=== PATIENT | female | born 1930 | race Caucasian/White ===

== ENCOUNTER 2017-05-30 12:25 | Inpatient (IN) | payer MEDICARE, MEDICAID ==
[2017-05-30] MEDS ORDERED: Loratadine 10 MG TAB PO PRN (14:35)
[2017-05-30] MEDS ORDERED: Loperamide HCl 2 MG CAP PO PRN (14:35)
[2017-05-30] MEDS ORDERED: Milk Of Magnesia 30 ML UDCUP PO PRN (14:35)
[2017-05-30] MEDS ORDERED: Artificial Tear Sol 15 ML BOT EA EYE PRN (14:35)
[2017-05-30] MEDS ORDERED: Nitroglycerin 0.4 MG TAB (25 Tab Bottle) SL PRN (14:35)
[2017-05-30] MEDS ORDERED: Mag-Al 1200 mg/1200 mg/30 ML UDCUP PO PRN (14:35)
[2017-05-30] MEDS ORDERED: Senokot 8.6 MG TAB PO PRN (14:35)
[2017-05-30] MEDS ORDERED: Ondansetron ODT 4 MG TAB PO PRN (14:35)
[2017-05-30] MEDS ORDERED: Eucerin (Mineral Oil/Petrolatum,White) 30 gm Jar TOP PRN (14:35)
[2017-05-30] MEDS ORDERED: Chloraseptic Spray 180 ml Bottle PO PRN (14:35)
[2017-05-30] MEDS ORDERED: hydrALAZINE 20 MG/ML VIAL SLOW IVP PRN (14:35)
[2017-05-30] MEDS ORDERED: Sodium Chloride 0.65% Nasal 44 ML BOT EA NARE PRN (14:35)
[2017-05-30] MEDS ORDERED: Ondansetron HCl/PF 4 MG/2 ML Vial IVP PRN (14:35)
[2017-05-30 14:41] LABS: Lactic Acid 3.5 mmol/L (0.5-2.2)
--- NOTE | 2017-05-30 16:46 | HP ---
PRIMARY CARE PHYSICIAN: Neptali Raymond M.D. REASON FOR ADMISSION: Acute hypoxic respiratory failure, pneumonia, sepsis with acute organ dysfunction, non-ST elevation MS, type 2, acute kidney failure. HISTORY OF PRESENT ILLNESS: An 86-year-old female who has history of hypertension who presented to emergency room initially at [facility] with increasing shortness of breath. Around Good Sunday weekend, patient was experiencing pain in her right eye and she was having blurred vision and that is why family member made appointment next Sunday with duty officer and the patient was instructed to go to [place]. Since then over that week period every 2 days, the patient was visiting to [place]. A week later on Sunday, the patient started having upper respiratory infection. She was having runny nose and sore throat, other family member was also sick during that week. Patient's condition gotten worse last week end. She was having cough productive of sputum. She was having hoarseness of voice. Her condition deteriorated over Sunday and Sunday. Sunday they had appointment for eye doctor at [place]. After that visit, when they returned, patient's condition even more deteriorated. She was extremely short of breath. This morning, she was having cough productive of sputum. She denies any hemoptysis. She was not having any fever during this entire period. She did not have any orthopnea or lower extremity edema. She was not able to sleep because of cough and shortness of breath. This morning, the patient was taken to [facility] where she was found with acute kidney failure and elevated troponin. She was hypoxic on admission with saturation of 88% on room air. She was hypotensive as well, tachycardic and tachypneic. Routine blood tests showed leukocytosis and lactic acidosis. Her BNP was elevated. Before, this patient did not have any dyspnea on exertion , orthopnea, or PND. The patient was given Lovenox 1 mg per kg, Lasix 40 mg, DuoNeb therapy, aspirin, Rocephin, azithromycin, and subsequently patient was transferred to our hospital for higher level of care. When I saw this patient in the emergency room, patient was lying flat without any shortness of breath, but she was wheezing in both lung modi and she was having active cough with productive of sputum. She was also hypotensive. Initially, plan was to admit to telemetry floor, but we changed to IMCU floor. The patient is up to date in her flu and pneumonia vaccination. She denies any palpitation, but she was experiencing chest discomfort this morning. Her chest discomfort was radiating to neck. She denies any constipation, diarrhea. She denies any UTI symptoms. She denies any headache or focal motor or sensory symptoms. PAST MEDICAL HISTORY: Carpal tunnel syndrome, non-rheumatic mitral valve prolapse and mitral valve regurgitation, degenerative joint disease, hypertension, dyslipidemia, gastroesophageal reflux disease, vitamin B12 deficiency, hypothyroidism, and irritable bowel syndrome. PAST PSYCHIATRIC HISTORY: Anxiety and depression. PAST SURGICAL HISTORY: Appendicectomy, total abdominal hysterectomy, left femur fracture required surgery x2. FAMILY HISTORY: No strong family history of premature coronary artery disease, stroke or cancer. SOCIAL HISTORY: Patient lives at home with her family. No history of tobacco, alcohol or illicit drug abuse. ALLERGIES: PENICILLIN AND CODEINE SULFATE. CURRENT HOME MEDICATIONS: Based on primary care physician's office, the patient is on following medications: Celexa 20 mg p.o. daily, aspirin 81 mg p.o. daily, Lipitor 20 mg p.o. at bedtime, Synthroid 50 mcg p.o. daily, Bentyl 10 mg p.o. twice daily, VESIcare 10 mg p.o. daily, ranitidine 150 mg p.o. b.i.d. , diclofenac 75 mg p.o. daily as needed, diazepam 5 mg p.o. daily as needed, Sinemet 10/100 one tablet three times daily, amlodipine 5 mg daily. EMERGENCY ROOM COURSE: At [facility], the patient has received Rocephin, azithromycin, and Lovenox 1 mg per kg, Lasix 40 mg and DuoNeb therapy and aspirin 324 mg. REVIEW OF SYSTEMS: The following complete review of systems was negative, unless otherwise mentioned in the HPI or below: Constitutional: Weight loss or gain, ability to conduct usual activities. Skin: Rash, itching. Eyes: Double vision, pain. ENT/Mouth: Nose bleeding, neck stiffness, pain, tenderness. Cardiovascular: Palpitations, dyspnea on exertion, orthopnea. Respiratory: Shortness of breath, wheezing, cough, hemoptysis, fever or night sweats. Gastrointestinal: Poor appetite, abdominal pain, heartburn, nausea, vomiting, constipation, or diarrhea. Genitourinary: Urgency, frequency, dysuria, nocturia. Musculoskeletal: Pain, swelling. Neurologic/Psychiatric: Anxiety, depression. Allergy/Immunologic: Skin rash, bleeding tendency. Please see my HPI for pertinent positive and negative. All other review of systems reviewed and negative except as mentioned in the HPI. PHYSICAL EXAMINATION: VITAL SIGNS: Currently in our emergency room, blood pressure 114/80, pulse 104. Lowest blood pressure 89/70, respiratory rate 26, temperature 97.5, saturation 97% on 3 liter oxygen. She was hypoxic with saturation 88% on room air. GENERAL: Patient is currently alert, awake, mild respiratory distress, weak. HEAD: Normocephalic, atraumatic. Eyes: Pupils round, reactive to light. Right eye has mild erythema. ENT: Oropharynx within normal limits. Moist mucous membranes. Mild pharyngeal erythema noted. NECK: Supple, mild lymph node palpable on the right side of the neck. LUNGS: Bilateral rales and wheezing heard. Air entry reduced at base. CARDIAC: S1, S2 regular, tachycardia, soft systolic murmur present parasternally. No gallop, no rub. ABDOMEN: Soft, bowel sounds present, nontender, nondistended. No organomegaly , no mass, no suprapubic tenderness. BACK: Unremarkable, no CVA tenderness. EXTREMITIES: Upper extremity passive movement of all joints are normal. Lower extremity, nonpitting edema noted. Good distal pulsation. SKIN: No skin rash. HEMATOLOGICAL SYSTEM: No lymphadenopathy. PSYCHIATRIC: Normal affect. NEUROLOGIC: The patient is alert, oriented x3. Cranial nerves II-XII intact. Motor and sensation within normal limit. No focal neurological deficit noted. SIGNIFICANT LABORATORY DATA: EKG showing normal sinus rhythm, nonspecific ST-T changes. Chest x-ray based on my review bibasilar pleural effusion, bibasilar atelectasis versus infiltration, cardiomegaly. CBC: WBC 20.4, hemoglobin 11.5 , platelets 368 with bandemia. BMP: Sodium 136, potassium 4.2, chloride 102, carbon dioxide 17, anion gap 21, BUN 43, creatinine 2.35, glucose 154, lactic acid 3.5, calcium 8.5. LFT: AST 78, ALT 61, troponin I 0.416, CK-MB 2.4, CK 18. ASSESSMENT AND PLAN: 1. Acute hypoxic respiratory failure, likely related with underlying pneumonia and congestive heart failure, currently saturation maintained with nasal cannula. The patient will be admitted to IMCU. Pulmonary and Cardiology will be consulted. We will maintain oxygen saturation above 92%. 2. Community-acquired pneumonia, bibasilar pneumonia. Patient has leukocytosis with left shift and lactic acidosis. Patient also exposed with a viral infection recently. We will check respiratory virus panel. We will check urine streptococcal and legionella antigen test. Pulmonary will be consulted. We will treat with cefepime 1 gram q.12 hourly and Levaquin 750 mg every 2 days, Mucinex 600 mg twice daily, DuoNeb therapy q.6 hourly. Given her wheezing, we will also treat with Solu-Medrol 40 mg IV q.6 hourly for 4 doses today. 3. Acute kidney failure likely related with sepsis. Cardiorenal syndrome is also a possibility. We will check urine sodium, urine creatinine. Nephrology will be consulted. At this point, because of hypotension and acute kidney failure, we will avoid diuretic therapy. Because of associated elevated BNP, we will also avoid giving her too much fluid, but will defer that management to Nephrology and Cardiology. 4. Non-ST elevation myocardial infarction, type 2, likely demand ischemia from sepsis. I am suspecting this patient has underlying sepsis, but she was also experiencing chest pain this morning. We will do serial cardiac enzymes x3 and we will consult Cardiology. We will obtain echocardiography. We will continue aspirin 325 mg p.o. daily. The patient is already given Lovenox 1 mg per kg at other emergency room. Further decision will defer to Cardiology. 5. Lactic acidosis with elevated anion gap metabolic acidosis due to renal failure and sepsis. We will treat underlying infection. Nephrology consulted. 6. Abnormal liver function tests, likely related with sepsis or hypotension related to poor perfusion. We will monitor LFT. 7. Congestive heart failure, suspecting diastolic. It is unclear whether the patient has acute congestive heart failure or not. We will consult Cardiology, Pulmonology, and will defer management to them. It is complicated situation. I am suspecting that most likely the patient had upper respiratory infection that complicated pneumonia and that pneumonia precipitating congestive heart failure as well as acute kidney failure and sepsis with acute organ dysfunction. We have to be very careful giving her fluid versus Lasix and we have to monitor labs very closely and that is why we are getting assistance from consultants. 8. Sepsis with acute organ dysfunction. The patient has severe sepsis with hypotension. Patient meets sepsis criteria, though tachycardic, tachypneic, and hypoxic respiratory failure, kidney failure, leukocytosis with bandemia and lactic acidosis. Source of infection is mostly lung, but we will also rule out urinary tract infection. We will check urinalysis. 9. Anxiety and depression. We will continue Celexa 20 mg p.o. daily. 10. Gastroesophageal reflux disease. We will continue Pepcid 20 mg p.o. daily. 11. Hypothyroidism. We will continue Synthroid 50 mcg p.o. daily. 12. Dyslipidemia. Check lipid profile tomorrow and continue Lipitor at 20 mg p.o. at bedtime. 13. Osteoarthritis. We will avoid NSAID because of kidney failure. 14. Parkinsonian syndrome. The patient is taking carbidopa/levodopa medication which we will continue while in hospital. 15. Hypertension, but currently low blood pressure and that is why we will hold on antihypertensive medication. 16. Deep venous thrombosis prophylaxis, heparin 5000 units subcu 3 times daily. 17. Gastrointestinal prophylaxis, Pepcid 20 mg p.o. daily. CODE STATUS: Spoke with the patient and patient's daughter at bedside and confirmed full code status. Patient's daughter is surrogate decision maker. Disposition plan based on clinical course. We are expecting patient's stay in hospital more than 2 midnights. Plan of care discussed with the patient and family member at bedside in the emergency room. GAUTAMD
[2017-05-30 17:19] LABS: Troponin I 0.384 ng/mL (< 0.028)
[2017-05-30] MEDS: Carbidopa/Levodopa 10-100 mg Tablet PO SCH ×2 (17:29→20:52)
[2017-05-30] MEDS: Heparin 5,000 UNITS/ML VIAL SC SCH ×2 (17:29→20:52)
[2017-05-30] MEDS: Cefepime 1 GM, Admixture Fee 1 EACH in Sodium Chloride 0.9% 10 ML SLOW IVP SCH (17:30)
[2017-05-30 19:04] LABS: Anion Gap 17 mmol/L (10-20); BUN (Urea Nitrogen) 43 mg/dL (9.8-20.1); Calc. Creatinine Clearance 27 mL/min (70-130); Calcium 8.6 mg/dL (7.8-10.44); Carbon Dioxide 21 mmol/L (23-31); Chloride 103 mmol/L (98-107); Estimated GFR-MDRD 23; Glucose 186 mg/dL (83-110); Potassium 4.2 mmol/L (3.5-5.1); Sodium 137 mmol/L (136-145)
[2017-05-30 20:00] LABS: Troponin I 0.465 ng/mL (< 0.028)
[2017-05-30 20:05] LABS: Bilirubin Negative (Negative); Blood, Urine Negative (Negative); Clarity CLOUDY (Clear); Glucose, Urine (Dipstick) Negative (Negative); Leukocyte Negative (Negative); Nitrite Negative (Negative); Protein, Urine (Dipstick) Negative (Neg-Trace); Specific Gravity, Urine 1.014 (1.002-1.036); Urobilinogen 0.2 mg/dL (0.2-1.0)
[2017-05-30 20:07] LABS: Bacteria/HPF None Seen HPF (None Seen); Hyaline Casts/LPF 4-6 HYALINE CAST LPF (0-3 Hyaline); Squamous Epithelial 0-3 HPF (0-3); WBC/HPF 0-3 HPF (0-3)
[2017-05-30 20:10] LABS: Yeast-AUWi Flag 44.6 (0-25.0)
[2017-05-30 20:19] LABS: RBC/HPF None Seen HPF (0-3); Yeast-All Forms None Seen HPF (None Seen)
[2017-05-30] MEDS: Dicyclomine 10 MG CAP PO SCH (20:52)
[2017-05-30] MEDS: guaiFENesin ER 600 MG TAB PO SCH (20:52)
[2017-05-30] MEDS ORDERED: Cefepime 1 GM in Sodium Chloride 0.9% 100 ML IVPB SCH (21:00)
[2017-05-30] MEDS: Atorvastatin Calcium 20 MG TAB PO SCH (21:07)
[2017-05-30 22:34] LABS: Creatinine, Urine 42.68 mg/dL (47-110)
--- NOTE | 2017-05-30 23:49 | ULT ---
BILATERAL RENAL ULTRASOUND: 05/30/17 INDICATION: Acute renal insufficiency. FINDINGS: Symmetric size of each kidney approximating 9 cm in length. Moderate sized right renal cyst is eviden t. No overt hydronephrosis. Urinary bladder is grossly unremarkable. IMPRESSION: No evidence of hydronephrosis involving either kidney. Right renal cyst. POS: [facility]
--- NOTE | 2017-05-31 00:11 | CON ---
DATE OF CONSULTATION: 05/30/2017 REASON FOR CONSULTATION: Acute renal failure as well as metabolic acidosis. HISTORY OF PRESENT ILLNESS: A very pleasant 86-year-old female with a baseline creatinine unknown, p resented to the hospital with a creatinine of 2.3. The patient also had an acute hypoxic respiratory failure and Non-ST ND. The patient complains of chronic leg swelling. Denies any headache, numbnes s, tingling or weakness. Denies any nausea, vomiting or chest pain. The patient as mentioned had an elevated BNP. PAST MEDICAL HISTORY: Significant for carpal tunnel syndrome, mitral valve prolapse, mitral valve re gurgitation, degenerative joint disease, hypertension, hyperlipidemia, GERD, B12 deficiency, and hypo thyroidism. PAST SURGICAL HISTORY: Significant for appendectomy, hysterectomy, left femur fracture. SOCIAL HISTORY: No alcohol or drug use. FAMILY HISTORY: Negative for ESRD. ALLERGIES: Reviewed. HOME MEDICATIONS: List reviewed. REVIEW OF SYSTEMS: Fifteen-point review of systems was performed and negative except positives noted above. General: Weakness. Head: Headache. Neck: No swelling or lumps. Nose: No epistaxis or discharge. Eyes: No diplopia or pain. Respiratory: Dyspnea. Cardiovascular: Chest pain. Gastro intestinal: Nausea. /LEGAL TRANSCRIPTIONIST: Hematuria. Musculoskeletal: No joint pain. Neuropsychiatric systems : No suicidal ideation. No ideation. Skin: Denies any rash or ulcer. Constitutional: No fever or chills. PHYSICAL EXAMINATION: GENERAL: The patient is awake, alert. VITAL SIGNS: Afebrile, pulse 104, breathing at 16, blood pressure 114/80. OBJECTIVE: See above. Awake, alert, in no acute distress. GENERAL APPEARANCE AND MENTAL STATUS: Fair. HEAD/NECK: Normocephalic. Atraumatic. EYES: EOMI. No deformity. EARS: Clear. No ulcers. NOSE: Intact. No lesions. MOUTH: Clear. No discharge. THROAT: Clear. No exudate. LUNGS: Clear. No crackles. CARDIAC: S1, S2. No rub. ABDOMEN: Benign. BS+. GENITALIA/RECTUM: Paul absent. BACK/EXTREMITIES: Edema 0+ Ulcer-. NEUROLOGICAL: Alert and motor intact. SKIN: Rash- Bruise-. LYMPHATICS: Edema- Ulcer-. LABORATORY DATA: Show creatinine is 2.3, bicarbonate 28. ASSESSMENT AND RECOMMENDATIONS: 1. Acute kidney injury with chronic kidney disease, most likely due to decreased effective arterial blood volume. Continue gentle hydration. 2. Anemia, stable. 3. Hypertension, stable. 4. Medications based on GFR are appropriate. 5. Congestive heart failure. I will repeat labs today. No indication for dialysis at this time. I would recommend avoiding diclo fenac at home.
[2017-05-31] MEDS: Cefepime 1 GM, Admixture Fee 1 EACH in Sodium Chloride 0.9% 10 ML SLOW IVP SCH ×2 (05:23→16:46)
[2017-05-31] MEDS: Levothyroxine Sodium 50 MCG TAB PO SCH (05:24)
[2017-05-31] MEDS ORDERED: Furosemide 40 MG/4 ML VIAL SLOW IVP SCH (06:00)
[2017-05-31 07:57] LABS: Lactic Acid 1.1 mmol/L (0.5-2.2)
[2017-05-31 08:12] LABS: ALT (SGPT) 16 U/L (8-55); AST (SGOT) 51 U/L (5-34); Albumin 2.7 g/dL (3.4-4.8); Alkaline Phosphatase 107 U/L (40-150); Anion Gap 17 mmol/L (10-20); BUN (Urea Nitrogen) 43 mg/dL (9.8-20.1); Bilirubin, Total 0.3 mg/dL (0.2-1.2); Calc. Creatinine Clearance 35 mL/min (70-130); Calcium 8.7 mg/dL (7.8-10.44); Carbon Dioxide 19 mmol/L (23-31); Cardiac Risk 3.2 (Less than 4.5); Chloride 104 mmol/L (98-107); Cholesterol 81 mg/dl (< 200 Desired); Estimated GFR-MDRD 30; Globulin 3.3 g/dL (2.4-3.5); Glucose 124 mg/dL (83-110); HDL Cholesterol 25 mg/dL (>60 Neg Risk); LDL Cholesterol, Calculated 40 mg/dL; Magnesium 1.3 mg/dL (1.6-2.6); Potassium 3.8 mmol/L (3.5-5.1); Sodium 136 mmol/L (136-145); Triglycerides 78 mg/dL (Less than 150); Uric Acid 10.2 mg/dL (2.6-6.0)
[2017-05-31 08:14] LABS: Band 5 % (5-11); Hemoglobin 10.4 g/dL (12.0-16.0); Lymphocytes 2 % (21-51); MDiff Complete? YES; Mean Corpuscular HGB CONC 31.1 g/dL (32.0-36.0); Mean Corpuscular Hemoglobin 29.6 pg (27.0-31.0); Mean Corpuscular Volume 95.3 fl (81.0-99.0); Mean Platelet Volume 7.8 fL (7.4-10.4); Monocytes 1 % (0-10); Neutrophil 92 % (42-75); Platelet Count 408 thou/uL (130-400); RBC Distribution Width 12.7 % (11.5-14.5); Red Blood Cell (RBC) Count 3.52 mill/uL (4.20-5.40); White Blood Cell (WBC) Count 21.3 thou/uL (4.8-10.8)
[2017-05-31] MEDS: Aspirin 325 MG TAB PO SCH (08:56)
[2017-05-31] MEDS: Carbidopa/Levodopa 10-100 mg Tablet PO SCH ×3 (08:56→20:55)
[2017-05-31] MEDS: Dicyclomine 10 MG CAP PO SCH ×2 (08:56→20:55)
[2017-05-31] MEDS: Citalopram 20 MG TAB PO SCH (08:56)
[2017-05-31] MEDS: Heparin 5,000 UNITS/ML VIAL SC SCH ×3 (08:56→20:40)
[2017-05-31] MEDS: guaiFENesin ER 600 MG TAB PO SCH ×2 (08:56→20:40)
[2017-05-31] MEDS: Famotidine 20 MG TAB PO SCH (08:56)
--- NOTE | 2017-05-31 09:36 | PDOC.PN ---
- Subjective Encounter Start Date: 05/31/17 Encounter Start Time: 08:30 -: old records requested/rev pt has cough, dyspnea, still has low BP, creatinine is improving, no fever, pt felt that she had visual hallucination - Objective MAR Reviewed: Yes Vital Signs & Weight: Vital Signs (12 hours) Temp Pulse Resp BP BP Pulse Ox 05/31/17 08:43 99 05/31/17 08:42 95 21 H 99 05/31/17 08:00 97.5 F L 100 23 H 94 L 05/31/17 07:54 97.5 F L 100 23 H 88/66 L 94 L 05/31/17 04:00 98.1 F 94 19 91/55 L 100 05/31/17 00:00 97.6 F 101 H 20 103/48 L 97 05/30/17 22:24 100 20 97 Weight Weight 191 lb 1.6 oz I&O: 05/30/17 05/31/17 06/01/17 06:59 06:59 06:59 Intake Total 120 Output Total 360 Balance -240 Result Diagrams: 05/31/17 03:30 05/31/17 03:30 EKG Reviewed by me: Yes Phys Exam - Physical Examination Constitutional: NAD HEENT: PERRLA, moist MMs, sclera anicteric Neck: no JVD, supple Respiratory: wheezing present few scattered rales more at base Cardiovascular: RRR, no significant murmur Gastrointestinal: soft, non-tender, no distention, positive bowel sounds Musculoskeletal: no edema, pulses present Neurological: non-focal, normal sensation, moves all 4 limbs Lymphatic: no nodes Psychiatric: normal affect, A&O x 3 Skin: no rash, normal turgor Dx/Plan (1) Acute diastolic heart failure Code(s): I50.31 - ACUTE DIASTOLIC (CONGESTIVE) HEART FAILURE Status: Acute (2) Acute kidney failure Status: Acute (3) Acute respiratory failure with hypoxia Code(s): J96.01 - ACUTE RESPIRATORY FAILURE WITH HYPOXIA Status: Acute (4) Community acquired bacterial pneumonia Code(s): J15.9 - UNSPECIFIED BACTERIAL PNEUMONIA Status: Acute (5) Demand ischemia of myocardium Code(s): I24.8 - OTHER FORMS OF ACUTE ISCHEMIC HEART DISEASE Status: Acute (6) Hypotension Status: Acute (7) Infection due to human metapneumovirus (hMPV) Code(s): B97.81 - HUMAN METAPNEUMOVIRUS THE CAUSE OF DISEASES CLASSD ELSWHR Status: Acute (8) Lactic acidosis Code(s): E87.2 - ACIDOSIS Status: Acute (9) Sepsis with acute organ dysfunction Code(s): A41.9 - SEPSIS, UNSPECIFIED ORGANISM; R65.20 - SEVERE SEPSIS WITHOUT SEPTIC SHOCK Status: Acute (10) Transaminitis Code(s): R74.0 - NONSPEC ELEV OF LEVELS OF TRANSAMNS & LACTIC ACID DEHYDRGNSE Status: Acute (11) Anemia, normocytic normochromic Code(s): D64.9 - ANEMIA, UNSPECIFIED Status: Chronic (12) Anxiety and depression Code(s): F41.9 - ANXIETY DISORDER, UNSPECIFIED; F32.9 - MAJOR DEPRESSIVE DISORDER, SINGLE EPISODE, UNSPECIFIED Status: Chronic (13) GERD (gastroesophageal reflux disease) Code(s): K21.9 - GASTRO-ESOPHAGEAL REFLUX DISEASE WITHOUT ESOPHAGITIS Status: Chronic (14) Hypertension Code(s): I10 - ESSENTIAL (PRIMARY) HYPERTENSION Status: Chronic - Plan cont current plan of care, continue antibiotics, respiratory therapy * continue empiric cefepime and levaquin * if continue to have hallucination, then will DC levaquin and change to azithromycin vs doxycycline * medication reviewed as below * symptomatic treatment * follow culture * droplet isolation * continue respiratory therapy * renal function improving * echo will be done * cardiology and pulmonary will be seeing today. Review of Systems - Review of Systems Constitutional: negative: fever, chills, sweats, weakness, malaise, other Eyes: negative: Pain, Vision Change, Conjunctivae Inflammation, Eyelid Inflammation, Redness, Other ENT: negative: Ear Pain, Ear Discharge, Nose Pain, Nose Discharge, Nose Congestion, Mouth Pain, Mouth Swelling, Throat Pain, Throat Swelling, Other Respiratory: Cough, Shortness of Breath, SOB with Excertion. negative: Dry, Hemoptysis, Pleuritic Pain, Sputum, Wheezing Cardiovascular: negative: chest pain, palpitations, orthopnea, paroxysmal nocturnal dyspnea, edema, light headedness, other Gastrointestinal: negative: Nausea, Vomiting, Abdominal Pain, Diarrhea, Constipation, Melena, Hematochezia, Other Genitourinary: negative: Dysuria, Frequency, Incontinence, Hematuria, Retention , Other Musculoskeletal: negative: Neck Pain, Shoulder Pain, Arm Pain, Back Pain, Hand Pain, Leg Pain, Foot Pain, Other Skin: negative: Rash, Lesions, Simon, Bruising, Other - Medications/Allergies Allergies/Adverse Reactions: Allergies Allergy/AdvReac Type Severity Reaction Status Date / Time codeine Allergy Verified 01/03/15 16:26 Penicillins Allergy Verified 01/03/15 16:26 Medications: Current Medications Acetaminophen (Tylenol) 650 mg PO Q4H PRN PRN Reason: Headache/Fever or Pain Al Hydroxide/Mg Hydroxide (Maalox) 30 ml PO Q6H PRN PRN Reason: Heartburn or Indigestion Albuterol/Ipratropium (Duoneb) 3 ml NEB [id number] [facility] Last Admin: 05/31/17 08:42 Dose: 3 ml Artificial Tears (Tears Renewed 15ml Bottle) 0 drop EA EYE PRN PRN PRN Reason: Dry Eyes Aspirin (Aspirin) 325 mg PO DAILY [facility] Last Admin: 05/31/17 08:56 Dose: 325 mg Atorvastatin Calcium (Lipitor) 20 mg PO HS [facility] Last Admin: 05/30/17 21:07 Dose: 20 mg Carbidopa/Levodopa (Sinemet 10/100) 1 tab PO TID [facility] Last Admin: 05/31/17 08:56 Dose: 1 tab Citalopram Hydrobromide (Celexa) 20 mg PO DAILY [facility] Last Admin: 05/31/17 08:56 Dose: 20 mg Dicyclomine HCl (Bentyl) 10 mg PO BID [facility] Last Admin: 05/31/17 08:56 Dose: 10 mg Famotidine (Pepcid) 20 mg PO DAILY [facility] Last Admin: 05/31/17 08:56 Dose: 20 mg Guaifenesin (Robitussin Sf) 200 mg PO Q4H PRN PRN Reason: Cough Guaifenesin (Mucinex) 600 mg PO Q12HR [facility] Last Admin: 05/31/17 08:56 Dose: 600 mg Heparin Sodium (Porcine) (Heparin) 5,000 units SC TID [facility] Last Admin: 05/31/17 08:56 Dose: 5,000 units Hydralazine HCl (Apresoline) 10 mg SLOW IVP Q4H PRN PRN Reason: Systolic BP > 180 Levofloxacin 750 mg/ Device 150 mls @ 100 mls/hr IVPB Q2DAYS@1500 [facility] Last Admin: 05/30/17 17:30 Dose: Not Given Cefepime HCl 1 gm/Miscellaneous Medication 1 each/ Sodium Chloride 10 mls @ 120 mls/hr SLOW IVP 0400,1600 [facility] Last Admin: 05/31/17 05:23 Dose: 10 mls Levothyroxine Sodium (Synthroid) 50 mcg PO 0600 [facility] Last Admin: 05/31/17 05:24 Dose: 50 mcg Loperamide HCl (Imodium) 2 mg PO PRN PRN PRN Reason: Diarrhea/Loose Stools Loratadine (Claritin) 10 mg PO DAILYPRN PRN PRN Reason: Sinus Symptoms Magnesium Hydroxide (Milk Of Magnesium) 30 ml PO DAILYPRN PRN PRN Reason: Constipation Methylprednisolone Sodium Succinate (Solu-Medrol) 40 mg IVP Q6HR [facility] Last Admin: 05/31/17 05:24 Dose: 40 mg Mineral Oil/White Petrolatum (Eucerin Cream) 0 gm TOP BIDPRN PRN PRN Reason: Dry Skin Nitroglycerin (Nitrostat) 0.4 mg SL Q5MIN PRN PRN Reason: Chest Pain Ondansetron HCl (Zofran Odt) 4 mg PO Q6H PRN PRN Reason: Nausea/Vomiting Ondansetron HCl (Zofran) 4 mg IVP Q6H PRN PRN Reason: Nausea/Vomiting Phenol (Chloraseptic [place] 180 Ml Bot) 0 ml PO PRN PRN PRN Reason: Sore Throat Senna (Senokot) 2 tab PO HSPRN PRN PRN Reason: Constipation Sodium Chloride ([place] Nasal [place] 0.65%) 0 ml EA NARE QIDPRN PRN PRN Reason: Nasal Congestion Zolpidem Tartrate (Ambien) 5 mg PO HSPRN PRN PRN Reason: Insomnia
--- NOTE | 2017-05-31 11:18 | PRG ---
DATE OF SERVICE: 05/31/2017 SUBJECTIVE: This is an 86-year-old female being seen for acute kidney injury. The patient denies an y nausea, vomiting or chest pain. PHYSICAL EXAMINATION: GENERAL: Patient is awake, alert. VITAL SIGNS: Afebrile, pulse 75, breathing 16, blood pressure was 82/66. OBJECTIVE: See above. Awake, alert, in no acute distress. GENERAL APPEARANCE AND MENTAL STATUS: Fair. HEAD/NECK: Normocephalic. Atraumatic. EYES: EOMI. No deformity. EARS: Clear. No ulcers. NOSE: Intact. No lesions. MOUTH: Clear. No discharge. THROAT: Clear. No exudate. LUNGS: Clear. No crackles. CARDIAC: S1, S2. No rub. ABDOMEN: Benign. BS+. GENITALIA/RECTUM: Paul absent. BACK/EXTREMITIES: Edema 0+ Ulcer- NEUROLOGICAL: Alert and motor intact. SKIN: Rash- Bruise- LYMPHATICS: Edema- Ulcer- LABORATORY: Hemoglobin is 10.4, creatinine is 1.6. ASSESSMENT AND RECOMMENDATIONS: 1. Acute kidney injury/chronic kidney disease, improved. 2. Hypertension, would recommend 250 mL bolus. 3. Anemia, stable. 4. Medications based on glomerular filtration rate are appropriate. 5. Hypotension. We would recommend checking a random cortisol level as well as renal dose. No indication for dialysis at this time.
--- NOTE | 2017-05-31 20:02 | CON ---
DATE OF CONSULTATION: 05/31/2017 SERVICE: Pulmonary Medicine. HISTORY OF PRESENT ILLNESS: The patient is an 86-year-old white female with past medical history significant for essentially nothing. She was in her usual state of health until 3 days prior to admission. She had onset of cough, congestion, sore throat and upper respiratory tract type of an infection. She has sick contacts while was in the house. Because of this, she had poor p.o. intake. Either way, on the day of presentation, she turned pale as a sheet. She looked extraordinarily sick and had onset of chest discomfort radiating up into the left shoulder. She was subsequently brought to the Emergency Department. Initial diagnostic evaluation demonstrated an acute kidney injury that was not there last month. As such, she was admitted for observation. Overnight, respiratory virus panel was performed demonstrating that the patient was suffering with human metapneumovirus. She was given some gentle IV resuscitation. She is clearing her kidney injury and she actually feels much improved today. Originally, she had very low blood pressure. This actually perked up very nicely over the past 24 hours. She currently denies any shortness of breath or chest discomfort. She is on a little bit of oxygen, but otherwise, not requiring much in the way of other supportive measures. She is on antibiotics. Currently, cultures are pending. She is returning to her usual state of health, but remains extraordinarily weak. At baseline, the patient's daughter tells me that she typically gets around on a scooter. She is able to transfer herself from bed into the scooter. Whenever she is at her daughter's house; however, she can only negotiate on a rolling walker. PAST MEDICAL HISTORY: 1. Hypertension. 2. Dyslipidemia. 3. Gastroesophageal reflux disease. 4. Vitamin B12 deficiency. 5. Hypothyroidism. 6. Irritable bowel syndrome. 7. Mitral regurgitation. 8. Osteoarthritis with degenerative joints. PAST SURGICAL HISTORY: 1. Appendectomy. 2. Total abdominal hysterectomy. 3. Less femur fracture, status post repair x2. FAMILY HISTORY: Noncontributory. SOCIAL HISTORY: She lives at home with her family and has no exposure to chemicals, dust asbestos or tuberculosis currently. She denies any alcohol, tobacco or illicit drug use. ALLERGIES: PENICILLIN and CODEINE. MEDICATIONS: List of her inpatient medications were reviewed. Couple of small updates were made. REVIEW OF SYSTEMS: General, head, ears, eyes, nose, throat, cardiovascular, respiratory, GI, , musculoskeletal, neurologic and skin is negative except as mentioned in the H&P. PHYSICAL EXAMINATION: VITAL SIGNS: Afebrile, pulse 88, blood pressure 103/55, respirations 22 and saturation 95% on 3 liters nasal cannula. GENERAL: The patient is awake and alert, no apparent distress. LUNGS: Excellent air entry bilaterally. Dependent crackles are minimal. No prolonged expiratory phase is present currently. Rhonchi are there, but cleared with cough. No wheezing. HEART: Normal rate and regular. ABDOMEN: Soft, nontender and nondistended. Bowel sounds are positive. MUSCULOSKELETAL: No cyanosis or clubbing. No pitting in the bilateral lower extremities. NEUROLOGIC: Grossly nonfocal. LABORATORY DATA: WBC 21.3 and roughly stable, hemoglobin 10.4, platelets 408, 000. Neutrophil count is now 92% with 5% bands on top of that. Creatinine is down trending to 1.61. BUN 43. Anion gap 17. Basic metabolic profile is otherwise unremarkable. Magnesium is reduced at 1.3. AST and ALT are trending into a favorable direction. Troponin is 0.465. Liver function studies are essentially unremarkable. BNP 861 and nicely down trending. Cortisol 6.4, lactate 1.1. Originally, lactate was 3.5. Urinalysis is essentially unremarkable. Blood cultures x2 are negative. Respiratory virus panel is remarkable for human metapneumovirus. IMAGING DATA: 1. Ultrasound of the kidneys demonstrates no evidence of hydronephrosis. There is a right renal cyst. 2. Chest x-ray demonstrates cardiomegaly. There are bilateral pleural effusions present, which are quite small. Interstitial infiltrates are present throughout bilateral lung modi. ASSESSMENT: 1. Acute hypoxic and hypercapnic respiratory failure. 2. Acute bronchitis secondary to human metapneumovirus. 3. Episode of hypotension, resolving. 4. Acute kidney injury, resolved. 5. Severe sepsis, suspected. 6. Delirium. PLAN: We will repeat a magnesium tomorrow morning. Magnesium will be replaced. Phosphorus will also be performed. We will also do electrolytes and CBC. Empiric antibiotics will be continued for the time being, but deescalate if cultures remain negative. We will focus efforts on mobilizing the patient. We will try to get her moving with physical therapy and into a chair 2-3 times on a daily basis, so that she does not have further debilitated. Her delirium is likely secondary to the steroids, which will be deescalated. She seems to be clearing her end-organ damage. I agree that she does not appear to be too terribly volume overloaded. I do not understand whether BNP, however, is coming from and would suggest that she has developed some degree of strain on the heart. She has already got several doses of stress doses of steroids and so there is a little utility in performing a cosyntropin stimulation test at this point. This can be reevaluated in the outpatient setting if she has recurrent episode of hypotension. A CTA of the chest can be considered if the patient clears her acute kidney injury. If she remains hemodynamically stable, she can be transitioned to the telemetry unit. TING
[2017-05-31] MEDS: Doxycycline 100 MG CAP PO SCH (20:40)
[2017-05-31] MEDS: Atorvastatin Calcium 20 MG TAB PO SCH (20:40)
--- NOTE | 2017-05-31 22:12 | ULT ---
ULTRASOUND WITH DOPPLER DUPLEX VENOUS LOWER EXTREMITY BILATERAL 05/31/17 CPT: 51841 ICD-10-PCS: B54D HISTORY: Pain and edema of lower extremities. TECHNIQUE: Color flow Doppler, spectral waveform analysis of pulsed Doppler, and brantley-scale imaging with eyad jeanette and augmentation, were used to evaluate the bilateral common femoral, femoral, popliteal, platen builder up ior tibial, and superficial femoral, veins; and the proximal portions of the profunda femoral and gre ater saphenous, veins. FINDINGS: Appropriate compressibility and flow within the imaged deep vein system of each lower extremity witho ut evidence of DVT. IMPRESSION: No DVT evident sonographically. Mild soft tissue edema. POS: [facility]
[2017-05-31] MEDS ORDERED: Diltiazem 125 MG in Sodium Chloride 0.9% 100 ML IVPB SCH (23:00)
[2017-06-01] MEDS ORDERED: Haloperidol 1 MG TAB PO PRN (01:54)
[2017-06-01] MEDS: Cefepime 1 GM, Admixture Fee 1 EACH in Sodium Chloride 0.9% 10 ML SLOW IVP SCH ×2 (04:05→16:36)
[2017-06-01 05:31] LABS: Anion Gap 19 mmol/L (10-20); BUN (Urea Nitrogen) 39 mg/dL (9.8-20.1); Calc. Creatinine Clearance 49 mL/min (70-130); Carbon Dioxide 17 mmol/L (23-31); Chloride 105 mmol/L (98-107); Estimated GFR-MDRD 44; Sodium 137 mmol/L (136-145)
[2017-06-01 05:32] LABS: Calcium 8.8 mg/dL (7.8-10.44); Glucose 136 mg/dL (83-110); Magnesium 1.3 mg/dL (1.6-2.6); Phosphorus 2.8 mg/dL (2.3-4.7)
[2017-06-01 05:41] LABS: Critical Call Chem Troponin I RESULT DECREASING; Troponin I 0.379 ng/mL (< 0.028)
[2017-06-01] MEDS: Levothyroxine Sodium 50 MCG TAB PO SCH (05:44)
[2017-06-01 05:52] LABS: Band 7 % (5-11); Hemoglobin 10.8 g/dL (12.0-16.0); MDiff Complete? YES; Mean Corpuscular HGB CONC 30.5 g/dL (32.0-36.0); Mean Corpuscular Volume 95.2 fl (81.0-99.0); Monocytes 7 % (0-10); Neutrophil 86 % (42-75); Platelet Count 400 thou/uL (130-400); RBC Distribution Width 12.9 % (11.5-14.5); Red Blood Cell (RBC) Count 3.72 mill/uL (4.20-5.40); White Blood Cell (WBC) Count 24.2 thou/uL (4.8-10.8)
[2017-06-01] MEDS ORDERED: Furosemide 40 MG/4 ML VIAL SLOW IVP SCH (06:15)
[2017-06-01] MEDS ORDERED: Magnesium Sulfate 4 GM, Admixture Fee 1 EACH in Sodium Chloride 0.9% 250 ML 250 ML IVPB SCH (07:45)
--- NOTE | 2017-06-01 07:50 | RAD ---
CHEST 1 VIEW: History Volume overload. COMPARISON: Chest radiograph 05/30/17. FINDINGS: There is a right paratracheal density. Extensive perihilar peripheral airspace opacities. No acute osseous abnormality. IMPRESSION: 1. Mild worsening of the interstitial opacity concerning for possible edema or multifocal infection. 2. Right paratracheal soft tissue density as well as rightward buckling of the trachea may reflect v ascular congestion and dilatation of the great vessels versus mediastinal process such as adenopathy. The rightward buckling of the trachea is concerning for possible dilatation of the transverse aorta . Followup CT of the chest nonemergent may be helpful. POS: [facility]
--- NOTE | 2017-06-01 07:58 | CON ---
DATE OF CONSULTATION: 05/31/2017 PRIMARY CARE PHYSICIAN: Dr. De La Fuente in [place]. PRIMARY COMMUNITY DEVELOPMENT DIRECTOR: Dr. Rosalee Feliciano . FIRST AID OFFICER: Dr. Ricks. REFERRING: Dr. Alvarez. REASON FOR CONSULTATION: Heart failure. HISTORY OF PRESENT ILLNESS: Ms. Franco is an 86-year-old female with significant history of hypertension, dyslipidemia, GERD, hypothyroidism, and irritable bowel syndrome. She lives in [place], but she was visiting her daughter in the [place] for 3-4 days and started having shortness of breath , weakness with severe cough, which became worse over the 3 or 4 days. Yesterday, the patient's cough became very severe with chest pain under the bilateral breasts with cough. Patient's daughter called the EMS and the patient was brought to the ER in [place], and the patient was transferred to [facility] in [place] for further evaluation and treatment. Today, she complains of pressure-like pain in bilateral chest under her breast and mediastinal area increased with the cough. She reports that she had allergy test a long time ago, which showed the patient was allergic almost everything and also reports that whenever she stays at the daughter's home in [place] , she gets shortness of breath and worsening of the cough. She also complained of blurry vision in her right eye. She has been seeing a doctor in [place] for the symptoms and what she described was they insert needle 7 times for cataract surgery. She also complained of edema in the bilateral lower extremities; however, due to hypotensive, patient's primary care doctor discontinue diuretic. During the Cardiology consult assessment, the patient denied chest pain, dizziness, lightheadedness, palpitations, or fluttering in her chest, numbness in the left upper extremities, but positive to cough and shortness of breath. The patient had echocardiogram done in 2014, which shows EF of 55% to 60%, mild aortic valve regurgitation, pulmonary valve regurgitation, tricuspid regurgitation, and mitral valve regurgitation, and mild bilateral arterial dilation. She has renal ultrasound on 05/30/2017, which shows no evidence of hydronephritis, but the right renal cyst. She never had a stress test or cardiac catheterization done before. She had not followed up with Dr. Feliciano since she was discharged from hospital in 2014. She says she has not seen in any [employer] as an outpatient. PAST MEDICAL HISTORY: The patient's medical history of hypertension, hyperlipidemia, hypothyroidism, GERD, anxiety, and depression, osteoarthritis. PAST SURGICAL HISTORY: Appendectomy, total hysterectomy, few more fracture surgery, right knee surgery. FAMILY HISTORY: Her mother at the age of 40s due to uncertain etiology. Her father at the age of 60s for myocardial infarction. Patient's brother has had a myocardial infarction and tumor in the brain at around age of 60s. Her sister was recently diagnosed with diabetes. SOCIAL HISTORY: She lives with her . She has a 3 children who live well and she denies tobacco, ETOH, or illicit drug abuse. ALLERGIES: Patient PENICILLIN, CODEINE. HOME MEDICATIONS: Citalopram 20 mg once a day, VESIcare 10 mg once a day, diltiazem 5 mg p.r.n. as needed, atorvastatin 20 mg once a day, levothyroxine 50 mcg once a day, Bentyl 10 mg once a day, ranitidine 150 mg once a day, aspirin 81 mg once a day, erythromycin ointment one application each eye 4 times a day as needed, inhaler every p.m., Colace 75 mg once a day, and carbidopa/ levodopa 10/100 mcg tablet once a day. REVIEW OF SYSTEMS: The following review of system negative, unless otherwise mentioned in the HPI or below. Constitutional: Weight loss or gain, sense of well being. She has a sedative lifestyle unless she go to shopping. She does not walk and she walked with a walker. Skin rash, itching, change in hair growth or loss, nail changes, breast lumps, tenderness, swelling, or nipple discharge. Eyes: Blurry vision until the right eye, but negative for double vision, tearing, blind spots, or pain. HEENT: Headache, vertigo, lightheadedness, nasal bleeding, cold, obstruction, discharge dental difficulty gingival bleeding, denture, neck stiffness, pain, tenderness was in the thyroid or other areas. Cardiovascular: Positive for pain, bilateral chest on the bilateral breasts with a cough, but negative to palpitations, syncope, dyspnea on exertion, orthopnea, nocturnal dyspnea, varicosis claudication. Again, patient has a sedative lifestyle. She does not walk much, but she is complaining about her leg given now. Respiratory: Positive for shortness of breath and severe cough, but negative for hemoptysis, wheezing, stridor. Gastrointestinal: Poor appetite, aphasia, indigestion, abdominal pain, heartburn, eructation, nausea, vomiting, jaundice, constipation, diarrhea, abnormal blood in the stool. Genitourinary: Urgency, frequency, dysuria, nocturia, hematuria, polyuria, oliguria, unusual color urine. Musculoskeletal: Again, patient has a sedative lifestyle and she reported that her leg study given now and she has to use a walker if necessary to walk, but negative for swelling, redness or heat of muscle or joint limitation of motion. Neurologic: Seizure conversion paralyzed tremor. Psychiatric: Emotional problem, but she said that she has hallucination. Today , due to some medication, she is receiving in this hospital. PHYSICAL EXAMINATION: VITAL SIGNS: It seems like the patient's blood pressure 100/59, pulse is around 90s with sinus rhythm and oxygen level is 99% with 2 liters nasal cannula , respiratory rate 19. GENERAL: Well-developed, well-nourished without any acute distress. HEAD: Normocephalic, atraumatic. EYES: Extraocular muscle movement intact in the right side. She has watery eyes in the left eye. ENT: Oral and nasal mucosa are moist without lesion. NECK: No JVD. Neck is supple with normal range of motion. LUNGS: Very diminished in the rhonchi bilaterally. CARDIOVASCULAR: Regular rate and rhythm, normal S1, S2. There are no S3, S4, no significant murmur, hives thrill bruits noted. There are 1+ pulses in the dorsal pedis, posterior tibial, and popliteal. Carotid pulse present without bruit or thrill. No edema in the bilateral lower extremities. ABDOMEN: Soft, nontender to touch palpitate. Bowel sounds are present. MUSCULOSKELETAL: Able to move all extremities. SKIN: Warm, dry. No skin rash or lesion or bruise noted. NEUROLOGIC: Alert, oriented x4, awake, but sometimes during the conversation, she does say that she is having hallucination couple times, but slightly forgetful, but she can remember her allergy demented and a heart history. PSYCHIATRIC: Mood and affect are normal. EKG: EKG shows T-wave inversion in all leads. LABORATORY DATA: WBC 21.3, hemoglobin 10.4, hematocrit 33.5, platelets 408. Sodium 136, potassium 3.8, creatinine 1.61, which was 2.03 yesterday. AST 51, ALT 16, troponin was 0.350, 0.384 and 0.465. BNP 861.5, cholesterol 81, triglycerides 78, HDL 25, LDL 40, cortisol level at 6.40. UA shows urine creatinine is 42.68, and 4-6 hyaline casts, but no blood or nitrate showing the UA. ASSESSMENT AND PLAN: 1. Acute on chronic diastolic heart failure. The patient's condition is stable at this moment, without any diuretic at this moment due to hypotension. If she started having more shortness of breath with wheezing or swelling in the lower extremities. We would like to start some low dose of diuretic as appropriate. Echocardiogram was done today and the result is pending at this moment. 2. Elevated troponin. Possible due to epsis from pneumonia or demand ischemia such as like a severe cough. Patient told me that the patient has been coughing very hard prior to this admission. We like to repeat another troponin level tomorrow. The patient EKG shows T-wave inversion. The patient is on aspirin 325 once a day and also heparin 5000 units 3 times a day. However, she is not on any beta isabella or lisinopril due to hypotensive and abnormal creatinine level. Once the patient's condition becomes stable, she is going to have a stress test. 3. Hypertension. Patient's blood pressure had been a hypotensive at this moment. She is not on any scheduled blood pressure medicine at this moment. Once patient's condition becomes stable, we like to resume patient's blood pressure medication. 4. Acute respiratory failure secondary to the pneumonia. Patient is on antibiotic IV, which managed by patient's primary care doctor . 5. Acute kidney failure. Patient's creatinine level is slightly improved than yesterday. Dr. Ricks already consulted this patient. 6. Hyperlipidemia. Patient is on the statin. 7. Hypothyroidism. The patient is on levothyroxine, which is managed by patient's primary care doctor, 8. Anxiety and depression. Patient's emotional condition is stable at this moment; however, she is mild to moderate hallucinate at this moment. 9. Parkinson's disease. She is on carbidopa and levodopa, which is managed by the patient's primary care doctor. 10. History with GERD. The patient is on Pepcid 20 mg once a day which is managed by primary care doctor. Thank you very much for allowing the Cardiology service to participate in the care of the patient. We will follow along with the patient care team and make further recommendation as appropriate. TING
[2017-06-01] MEDS: Aspirin 325 MG TAB PO SCH (09:12)
[2017-06-01] MEDS: Famotidine 20 MG TAB PO SCH (09:13)
[2017-06-01] MEDS: guaiFENesin ER 600 MG TAB PO SCH ×2 (09:13→20:03)
[2017-06-01] MEDS: Doxycycline 100 MG CAP PO SCH ×2 (09:13→20:02)
[2017-06-01] MEDS: predniSONE 20 MG TAB PO SCH (09:14)
[2017-06-01] MEDS: Citalopram 20 MG TAB PO SCH (09:14)
[2017-06-01] MEDS: Heparin 5,000 UNITS/ML VIAL SC SCH ×3 (09:15→20:03)
[2017-06-01] MEDS: Dicyclomine 10 MG CAP PO SCH ×2 (09:23→20:03)
[2017-06-01] MEDS: Carbidopa/Levodopa 10-100 mg Tablet PO SCH ×3 (09:24→20:02)
--- NOTE | 2017-06-01 11:27 | PDOC.PN ---
- Subjective Encounter Start Date: 06/01/17 Encounter Start Time: 09:30 pt is confused, no fever, has afib with RVR - Objective MAR Reviewed: Yes Vital Signs & Weight: Vital Signs (12 hours) Temp Pulse Resp BP Pulse Ox 06/01/17 07:14 97.7 F 126 H 18 143/98 H 94 L 06/01/17 06:40 94 L 06/01/17 06:39 99 20 06/01/17 04:00 97.9 F 110 H 22 H 122/68 94 L 06/01/17 00:56 113 H 20 92 L 06/01/17 00:00 98.7 F 114 H 20 98/64 93 L Weight Weight 185 lb 3.2 oz I&O: 05/31/17 06/01/17 06/02/17 06:59 06:59 06:59 Intake Total 120 260 Output Total 360 1000 Balance -240 -740 Result Diagrams: 06/01/17 04:32 06/01/17 04:32 Radiology Reviewed by me: Yes (chest xray- worsening of infiltration) EKG Reviewed by me: Yes (afib with RVR) Phys Exam - Physical Examination Constitutional: NAD confused HEENT: PERRLA, sclera anicteric Neck: no JVD, supple Respiratory: wheezing present bl scattered rales Cardiovascular: no significant murmur, irregular Gastrointestinal: soft, non-tender, no distention, positive bowel sounds Musculoskeletal: no edema, pulses present Neurological: moves all 4 limbs Lymphatic: no nodes Psychiatric: normal affect Skin: no rash, normal turgor Dx/Plan (1) Acute encephalopathy Code(s): G93.40 - ENCEPHALOPATHY, UNSPECIFIED Status: Acute (2) Acute diastolic heart failure Code(s): I50.31 - ACUTE DIASTOLIC (CONGESTIVE) HEART FAILURE Status: Acute (3) Acute kidney failure Status: Acute (4) Acute respiratory failure with hypoxia Code(s): J96.01 - ACUTE RESPIRATORY FAILURE WITH HYPOXIA Status: Acute (5) Community acquired bacterial pneumonia Code(s): J15.9 - UNSPECIFIED BACTERIAL PNEUMONIA Status: Acute (6) Demand ischemia of myocardium Code(s): I24.8 - OTHER FORMS OF ACUTE ISCHEMIC HEART DISEASE Status: Acute (7) Hypotension Status: Acute (8) Infection due to human metapneumovirus (hMPV) Code(s): B97.81 - HUMAN METAPNEUMOVIRUS THE CAUSE OF DISEASES CLASSD ELSWHR Status: Acute (9) Lactic acidosis Code(s): E87.2 - ACIDOSIS Status: Acute (10) Sepsis with acute organ dysfunction Code(s): A41.9 - SEPSIS, UNSPECIFIED ORGANISM; R65.20 - SEVERE SEPSIS WITHOUT SEPTIC SHOCK Status: Acute (11) Transaminitis Code(s): R74.0 - NONSPEC ELEV OF LEVELS OF TRANSAMNS & LACTIC ACID DEHYDRGNSE Status: Acute (12) Anemia, normocytic normochromic Code(s): D64.9 - ANEMIA, UNSPECIFIED Status: Chronic (13) Anxiety and depression Code(s): F41.9 - ANXIETY DISORDER, UNSPECIFIED; F32.9 - MAJOR DEPRESSIVE DISORDER, SINGLE EPISODE, UNSPECIFIED Status: Chronic (14) GERD (gastroesophageal reflux disease) Code(s): K21.9 - GASTRO-ESOPHAGEAL REFLUX DISEASE WITHOUT ESOPHAGITIS Status: Chronic (15) Hypertension Code(s): I10 - ESSENTIAL (PRIMARY) HYPERTENSION Status: Chronic (16) Atrial fibrillation with RVR Code(s): I48.91 - UNSPECIFIED ATRIAL FIBRILLATION Status: Acute (17) Hypomagnesemia Code(s): E83.42 - HYPOMAGNESEMIA Status: Acute - Plan cont current plan of care, continue antibiotics * continue empiric antibiotics. cefepime and doxycycline * continue cardizem drip * will monitor in CCU * replace magnesium * cardiology following Review of Systems - Review of Systems Other: unable to review as pt is confused - Medications/Allergies Allergies/Adverse Reactions: Allergies Allergy/AdvReac Type Severity Reaction Status Date / Time codeine Allergy Verified 01/03/15 16:26 Penicillins Allergy Verified 01/03/15 16:26 Medications: Current Medications Acetaminophen (Tylenol) 650 mg PO Q4H PRN PRN Reason: Headache/Fever or Pain Al Hydroxide/Mg Hydroxide (Maalox) 30 ml PO Q6H PRN PRN Reason: Heartburn or Indigestion Albuterol/Ipratropium (Duoneb) 3 ml NEB [id number] [facility] Last Admin: 06/01/17 06:39 Dose: 3 ml Artificial Tears (Tears Renewed 15ml Bottle) 0 drop EA EYE PRN PRN PRN Reason: Dry Eyes Aspirin (Aspirin) 325 mg PO DAILY [facility] Last Admin: 06/01/17 09:12 Dose: 325 mg Atorvastatin Calcium (Lipitor) 20 mg PO HS [facility] Last Admin: 05/31/17 20:40 Dose: 20 mg Carbidopa/Levodopa (Sinemet 10/100) 1 tab PO TID [facility] Last Admin: 06/01/17 09:24 Dose: 1 tab Citalopram Hydrobromide (Celexa) 20 mg PO DAILY [facility] Last Admin: 06/01/17 09:14 Dose: 20 mg Dicyclomine HCl (Bentyl) 10 mg PO BID [facility] Last Admin: 06/01/17 09:23 Dose: 10 mg Doxycycline Hyclate (Vibramycin) 100 mg PO BID [facility] Last Admin: 06/01/17 09:13 Dose: 100 mg Famotidine (Pepcid) 20 mg PO DAILY [facility] Last Admin: 06/01/17 09:13 Dose: 20 mg Furosemide (Lasix) 40 mg SLOW IVP NOW [facility] Stop: 06/01/17 12:00 Last Admin: 06/01/17 06:30 Dose: 40 mg Guaifenesin (Robitussin Sf) 200 mg PO Q4H PRN PRN Reason: Cough Guaifenesin (Mucinex) 600 mg PO Q12HR [facility] Last Admin: 06/01/17 09:13 Dose: 600 mg Haloperidol (Haldol) 2 mg PO Q12H PRN PRN Reason: .AGITATION Last Admin: 06/01/17 02:02 Dose: 2 mg Heparin Sodium (Porcine) (Heparin) 5,000 units SC TID [facility] Last Admin: 06/01/17 09:15 Dose: 5,000 units Hydralazine HCl (Apresoline) 10 mg SLOW IVP Q4H PRN PRN Reason: Systolic BP > 180 Cefepime HCl 1 gm/Miscellaneous Medication 1 each/ Sodium Chloride 10 mls @ 120 mls/hr SLOW IVP 0400,1600 [facility] Last Admin: 06/01/17 04:05 Dose: 10 mls Diltiazem HCl 125 mg/ Sodium (Chloride) 125 mls @ 5 mls/hr IVPB INF [facility] PRN Reason: 5 MG/HR Last Admin: 05/31/17 23:03 Dose: 125 mls Magnesium Sulfate 4 gm/Miscellaneous Medication 1 each/ Sodium Chloride 258 mls @ 86 mls/hr IVPB ONE [facility] Stop: 06/01/17 12:00 Levothyroxine Sodium (Synthroid) 50 mcg PO 0600 [facility] Last Admin: 06/01/17 05:44 Dose: 50 mcg Loperamide HCl (Imodium) 2 mg PO PRN PRN PRN Reason: Diarrhea/Loose Stools Loratadine (Claritin) 10 mg PO DAILYPRN PRN PRN Reason: Sinus Symptoms Magnesium Hydroxide (Milk Of Magnesium) 30 ml PO DAILYPRN PRN PRN Reason: Constipation Mineral Oil/White Petrolatum (Eucerin Cream) 0 gm TOP BIDPRN PRN PRN Reason: Dry Skin Nitroglycerin (Nitrostat) 0.4 mg SL Q5MIN PRN PRN Reason: Chest Pain Ondansetron HCl (Zofran Odt) 4 mg PO Q6H PRN PRN Reason: Nausea/Vomiting Ondansetron HCl (Zofran) 4 mg IVP Q6H PRN PRN Reason: Nausea/Vomiting Phenol (Chloraseptic [place] 180 Ml Bot) 0 ml PO PRN PRN PRN Reason: Sore Throat Prednisone (Prednisone) 40 mg PO QAM-WM [facility] Last Admin: 06/01/17 09:14 Dose: 40 mg Senna (Senokot) 2 tab PO HSPRN PRN PRN Reason: Constipation Sodium Chloride (Lazy Y U Nasal [place] 0.65%) 0 ml EA NARE QIDPRN PRN PRN Reason: Nasal Congestion Sodium Chloride (Flush - Normal Saline) 10 ml IVF Q12HR [facility] Last Admin: 06/01/17 09:26 Dose: 10 ml Sodium Chloride (Flush - Normal Saline) 10 ml IVF PRN PRN PRN Reason: Saline Flush Zolpidem Tartrate (Ambien) 5 mg PO HSPRN PRN PRN Reason: Insomnia
--- NOTE | 2017-06-01 12:32 | PDOC.CTH ---
<Hafsa Iglesias - Last Filed: 06/01/17 12:27> Cardiology Progress Note - Subjective The pt seen and examined. No overnight events. No cardiac complaints. Per the pt, she needs to check her eye pressure this coming Sunday per her shank taper. - Objective Vital Signs Temp Pulse Pulse Pulse Resp BP BP 06/01/17 12:06 123 H 112 H 134/46 L 118/79 06/01/17 11:35 98.2 F 110 H 19 06/01/17 07:14 97.7 F 126 H 18 06/01/17 06:40 06/01/17 06:39 99 20 06/01/17 04:00 97.9 F 110 H 22 H 06/01/17 00:56 113 H 20 BP Pulse Ox Pulse Ox Pulse Ox 06/01/17 12:06 89 L 81 L 06/01/17 11:35 91/73 92 L 06/01/17 07:14 143/98 H 94 L 06/01/17 06:40 94 L 06/01/17 06:39 06/01/17 04:00 122/68 94 L 06/01/17 00:56 92 L Weight 185 lb 3.2 oz 05/31/17 06/01/17 06/02/17 06:59 06:59 06:59 Intake Total 120 260 Output Total 360 1000 Balance -240 -740 - Physical Examination General/Neuro: alert & oriented x3 Neck: no JVD present Lungs: CTA (coases and diminished at bases) Heart: other: (irregular) Abdomen: soft Extremities: other: (No edema) - Telemetry Telemetry Rhythm: SR 100-120s - Labs Result Diagrams: 06/01/17 04:32 06/01/17 04:32 Troponin/CKMB Troponin I 0.379 ng/mL (< 0.028) H* 06/01/17 04:32 - Assessment/Plan 1. Afib with RVR - Start Afib with RVR since 2300 on 05/31/17; HR has been 100- 120s with Diltiazem 5mg/h; Change Diltiazem to 7.5mg/h. On Heparin TID. 2. Acute on Chronic diastolic HF - Stable with Lasix, but not on BBlocker or ASIYA /ARE due to hypotensive with Diltiazem drip 3. Acute Resp. Failure - stable; managed by Mechanical Tech 4. Acute encephalopathy - stable at this time; She tried getting up from bed several times without assist last night. 5. HTN - stable 6. Hyperlipidemia - on statin 7. Hypothyroidism - on Thyroid med 8. Parkinson's disease - on med MAR reviewed Review of Systems - Review of Systems Constitutional: reports: no symptoms reported EENTM: reports: no symptoms reported Respiratory: reports: no symptoms reported Cardiac (ROS): reports: no symptoms reported ABD/GI: reports: no symptoms reported : reports: no symptoms reported <Andrea Feliciano - Last Filed: 06/01/17 16:19> Cardiology Progress Note - Objective Vital Signs Temp Pulse Pulse Pulse Resp BP BP 06/01/17 15:17 98.2 F 104 H 18 06/01/17 13:07 106 H 16 06/01/17 12:06 123 H 112 H 134/46 L 118/79 06/01/17 11:35 98.2 F 110 H 19 06/01/17 07:51 97.7 F 126 H 18 06/01/17 07:14 97.7 F 126 H 18 06/01/17 06:40 06/01/17 06:39 99 20 BP Pulse Ox Pulse Ox Pulse Ox 06/01/17 15:17 114/90 95 06/01/17 13:07 06/01/17 12:06 89 L 81 L 06/01/17 11:35 91/73 92 L 06/01/17 07:51 95 06/01/17 07:14 143/98 H 94 L 06/01/17 06:40 94 L 06/01/17 06:39 Weight 185 lb 3.2 oz 05/31/17 06/01/17 06/02/17 06:59 06:59 06:59 Intake Total 120 260 Output Total 360 1000 Balance -240 -740 - Labs Result Diagrams: 06/01/17 04:32 06/01/17 04:32 Troponin/CKMB Troponin I 0.379 ng/mL (< 0.028) H* 06/01/17 04:32 - Assessment/Plan Pt. seen and eval. by me. I agree with the A/P by the T[employer] I MATH TUTOR.She is confused and hallucinating at times. Chest- bilat. rales. CV: irreg./irreg., no edema. Continue IV dilt. supportive care.
--- NOTE | 2017-06-01 13:16 | PRG ---
DATE OF SERVICE: 06/01/2017 SUBJECTIVE: This is an 86-year-old female being seen for acute kidney injury. The patient denies an y nausea, vomiting, or chest pain. PHYSICAL EXAMINATION: GENERAL: Patient is awake, alert. VITAL SIGNS: Afebrile, pulse 110, breathing at 16, blood pressure 122/68. GENERAL APPEARANCE AND MENTAL STATUS: Fair. HEAD/NECK: Normocephalic, atraumatic. EYES: EOMI. No deformity. EARS: Clear. No ulcers. NOSE: Intact. No lesions. MOUTH: Clear. No discharge. THROAT: Clear. No exudate. LUNGS: Clear. No crackles. CARDIAC: S1, S2. No rub. ABDOMEN: Benign. BS+. GENITALIA/RECTUM: Paul absent. BACK/EXTREMITIES: Edema 0+ Ulcer-. NEUROLOGICAL: Alert and motor intact. SKIN: Rash- Bruise- LYMPHATICS: Edema- Ulcer-. LABORATORY DATA: Show hemoglobin 10.8, creatinine 1.6. RECOMMENDATIONS: 1. Acute kidney injury, improved. 2. Hypertension, stable. 3. Anemia, stable. I will sign off from this patient. Please reconsult as needed.
--- NOTE | 2017-06-01 19:02 | PRG ---
DATE OF SERVICE: 06/01/2017 SERVICE: Pulmonary Medicine. INTERVAL HISTORY: The patient is doing poorly overnight. She went into atrial fibrillation with RVR and became increasingly hypoxemic. She was started on Cardizem drip. Her rate was under better con trol and her oxygen requirements actually improved. By the time I saw her, she was actually looking quite a bit more comfortable and working with physical therapy. She was sitting on the side of the ed and did not look to be in any distress. PHYSICAL EXAMINATION: VITAL SIGNS: Afebrile, pulse 110, blood pressure 134/46, respirations 18, saturation 95% on 4 liters nasal cannula. HEENT: Normocephalic, atraumatic. Sclerae are white, conjunctivae pink. Oral and nasal mucosa is m oist without lesions. LUNGS: Decent air entry. Crackles are present throughout bilateral lung modi. There is no prolon ged expiratory phase or wheezing present. HEART: Tachycardic. Regular. ABDOMEN: Soft, nontender, nondistended. Bowel sounds are positive. MUSCULOSKELETAL: No cyanosis or clubbing. There is trace pitting in the bilateral lower extremities . NEUROLOGIC: Grossly nonfocal. LABORATORY DATA: WBC is 24.2, hemoglobin 10.8, platelets 400,000. Neutrophil count is 86% with 7% b ands. Magnesium 1.3. Creatinine down trending to 1.16. Basic metabolic profile is otherwise unrema rkable with normal phosphorus. Troponin 0.3 and down trending. Cortisol level was previously 6.4. Urinalysis is unremarkable. Respiratory virus panel was growing human metapneumovirus. IMAGING: Echocardiogram demonstrates 60% ejection fraction. Atrial fibrillation. Diastolic heart f ailure. Moderate to severe tricuspid regurgitation. Mitral regurgitation was not present. ASSESSMENT: 1. Acute hypoxic respiratory failure. 2. Acute bronchitis secondary to human metapneumovirus. 3. Acute kidney injury, resolving. 4. Atrial fibrillation with rapid ventricular response. 5. Severe sepsis. 6. Delirium, DISCUSSION AND PLAN: We will replace magnesium once again. Supportive care will be continued. We w ill replace her electrolytes. Hopefully, we will establish rate control. We will continue diuresis until she returns euvolemia, wean oxygen as tolerated. Empiric steroids will be continued for the ti me being. It is not clear whether or not her acute hypoxic event is associated with the respiratory virus, with volume overload. I favor the former given her presentation.
[2017-06-01] MEDS: Atorvastatin Calcium 20 MG TAB PO SCH (20:03)
[2017-06-01] MEDS: Zolpidem Tartrate 5 MG TAB PO PRN (20:03)
--- NOTE | 2017-06-01 21:03 | CON ---
DATE OF CONSULTATION: 05/31/2017 Please refer to the note already dictated by the nurse practitioner. INDICATION FOR CONSULTATION: An 86-year-old female with new onset atrial fibrillation. HISTORY OF PRESENT ILLNESS: Please also see the notes by the nurse practitioner. This is an 86-year -old female who has a history of hypertension, dyslipidemia, hypothyroidism, irritable bowel syndrome . She was admitted due to increasing shortness of breath, was found to have sinus rhythm when she ar rived but then subsequently developed atrial fibrillation. She has been having increasing coughing a nd is more confused. She has been seen in the Intensive Care Unit. She also has complained of some decreased vision in the right eye and some lower extremity edema. She is confused and actually has b een having some episodes of what appeared to be hallucinations. She denied any significant chest juvenal n, but did complain of shortness of breath and some palpitations. She had an echocardiogram in 2014, which showed ejection fraction 55-60% and she has had some history of mild aortic valve regurgitatio n, but no significant obstructive lesions were noted. She has had no previous history in the past of any coronary artery disease. She does have hypertension and dyslipidemia. PHYSICAL EXAMINATION: GENERAL: Reveals a well-developed, well-nourished, elderly female who is in no acute distress, but i s confused at times even during my examination. VITAL SIGNS: Her blood pressure 100/59, heart rate is in the 90s to 110s with atrial fibrillation. HEENT: Shows head to be normocephalic, atraumatic. Carotid pulses are present. I did not hear any significant bruits. CHEST: Has bilateral rales noted. CARDIOVASCULAR: Exam reveals an irregularly irregular rhythm. She has a soft systolic murmur at the apex. ABDOMEN: Soft and nontender. EXTREMITIES: At this time showed no clubbing, cyanosis or edema. Pedal pulses are present. NEUROLOGIC: The patient is confused and wants to get out of the bed and thinks she is in different b ed in the wrong place and trying to ensure that she is in the hospital and she is in the right bed. Otherwise, she does answer some questions appropriately. IMPRESSION: 1. Atrial fibrillation with new onset. She is on IV diltiazem. We will continue the IV diltiazem. Hopefully, the confusion will improve. This may have been due to medication she has received for th e shortness of breath. She possibly has pneumonia, but definitely has some diastolic dysfunction whi cinda has been diagnosed in the past and wants to re-evaluate by repeat echocardiogram. 2. Abnormal cardiac enzymes which most likely are due to the associated coughing and also the rapid heart rate associated with atrial fibrillation. 3. Hypertension. This is under good control and actually on the low side at this time. We will nee d to monitor this very carefully and treat appropriately. As far as probable pneumonia and acute res piratory failure, this also most likely will be one of the underlying etiologies of her atrial fibril lation. Once we correct these problems, I hope the atrial fibrillation will resolve. 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 Certainly if she is on Lovenox, she will need to be watched carefully as she does have acute kidney failure also. I would b e more than happy to continue to follow the patient with you during this hospital stay.
[2017-06-02] MEDS: Cefepime 1 GM, Admixture Fee 1 EACH in Sodium Chloride 0.9% 10 ML SLOW IVP SCH ×2 (04:50→16:22)
[2017-06-02 04:58] LABS: Anion Gap 15 mmol/L (10-20); BUN (Urea Nitrogen) 36 mg/dL (9.8-20.1); Calc. Creatinine Clearance 50 mL/min (70-130); Calcium 8.9 mg/dL (7.8-10.44); Carbon Dioxide 26 mmol/L (23-31); Chloride 103 mmol/L (98-107); Estimated GFR-MDRD 47; Glucose 101 mg/dL (83-110); Magnesium 1.4 mg/dL (1.6-2.6); Potassium 3.5 mmol/L (3.5-5.1); Sodium 140 mmol/L (136-145)
[2017-06-02 05:03] LABS: Critical Call Chem Troponin I RESULT DECREASING; Troponin I 0.332 ng/mL (< 0.028)
[2017-06-02] MEDS: Levothyroxine Sodium 50 MCG TAB PO SCH (05:37)
[2017-06-02 05:44] LABS: Hemoglobin 11.3 g/dL (12.0-16.0); Mean Corpuscular HGB CONC 31.3 g/dL (32.0-36.0); Mean Corpuscular Hemoglobin 29.4 pg (27.0-31.0); Mean Corpuscular Volume 93.9 fl (81.0-99.0); Mean Platelet Volume 7.4 fL (7.4-10.4); Platelet Count 407 thou/uL (130-400); RBC Distribution Width 12.9 % (11.5-14.5); Red Blood Cell (RBC) Count 3.85 mill/uL (4.20-5.40); White Blood Cell (WBC) Count 25.2 thou/uL (4.8-10.8)
[2017-06-02 05:45] LABS: Band 9 % (5-11); Lymphocytes 2 % (21-51); MDiff Complete? YES; Monocytes 4 % (0-10); Neutrophil 85 % (42-75)
[2017-06-02] MEDS: Diltiazem 125 MG in Sodium Chloride 0.9% 100 ML IVPB SCH (08:19)
[2017-06-02] MEDS: Heparin 5,000 UNITS/ML VIAL SC SCH (08:19)
[2017-06-02] MEDS: predniSONE 20 MG TAB PO SCH (08:19)
[2017-06-02] MEDS: Carbidopa/Levodopa 10-100 mg Tablet PO SCH ×3 (08:19→20:14)
[2017-06-02] MEDS: Dicyclomine 10 MG CAP PO SCH ×2 (08:19→20:14)
[2017-06-02] MEDS: Furosemide 40 MG/4 ML VIAL SLOW IVP SCH (08:19)
[2017-06-02] MEDS: guaiFENesin ER 600 MG TAB PO SCH ×2 (08:20→20:14)
[2017-06-02] MEDS: Doxycycline 100 MG CAP PO SCH ×2 (08:20→20:14)
[2017-06-02] MEDS: Citalopram 20 MG TAB PO SCH (08:20)
[2017-06-02] MEDS: Famotidine 20 MG TAB PO SCH (08:20)
--- NOTE | 2017-06-02 08:29 | EKG ---
Test Reason : STAT Blood Pressure : / mmHG Vent. Rate : 129 BPM Atrial Rate : 129 BPM P-R Int : 000 ms QRS Dur : 092 ms QT Int : 286 ms P-R-T Axes : 000 035 238 degrees QTc Int : 418 ms Atrial fibrillation with rapid ventricular response Nonspecific ST and T wave abnormality Abnormal ECG When compared with ECG of 30-MAY-2017 13:25, (Unconfirmed) Atrial fibrillation has replaced Sinus rhythm Confirmed by AYLEEN ACOSTA ([id number]) on 06/02/2017 8:28:50 AM Referred By: CODIE Confirmed By:AYLEEN ACOSTA
--- NOTE | 2017-06-02 11:28 | PDOC.PN ---
- Subjective Encounter Start Date: 06/02/17 Encounter Start Time: 10:30 Subjective: is sleeping, got meds to sleep last night -: not in distress - Objective MAR Reviewed: Yes Vital Signs & Weight: Vital Signs (12 hours) Temp Pulse Resp BP Pulse Ox 06/02/17 08:35 91 24 H 94 L 06/02/17 08:00 99.1 F 94 24 H 99 06/02/17 07:00 99.1 F 94 24 H 101/66 95 06/02/17 04:00 98.5 F 96 17 110/65 95 06/01/17 23:58 97.4 F L 96 18 101/69 95 Weight Weight 179 lb 3.2 oz I&O: 06/01/17 06/02/17 06/03/17 06:59 06:59 06:59 Intake Total 260 190 Output Total 1000 1000 Balance -740 -810 Result Diagrams: 06/02/17 04:18 06/02/17 04:18 Phys Exam - Physical Examination HEENT: PERRLA, sclera anicteric Neck: no JVD, supple Respiratory: no wheezing, no rales Cardiovascular: irregular murmur++ Gastrointestinal: soft, non-tender, positive bowel sounds Musculoskeletal: no edema, pulses present Neurological: non-focal, moves all 4 limbs Dx/Plan (1) Acute diastolic heart failure Code(s): I50.31 - ACUTE DIASTOLIC (CONGESTIVE) HEART FAILURE Status: Acute (2) Acute encephalopathy Code(s): G93.40 - ENCEPHALOPATHY, UNSPECIFIED Status: Acute (3) Acute respiratory failure with hypoxia Code(s): J96.01 - ACUTE RESPIRATORY FAILURE WITH HYPOXIA Status: Acute (4) Atrial fibrillation with RVR Code(s): I48.91 - UNSPECIFIED ATRIAL FIBRILLATION Status: Acute Comment: rate controlled (5) Demand ischemia of myocardium Code(s): I24.8 - OTHER FORMS OF ACUTE ISCHEMIC HEART DISEASE Status: Acute (6) Infection due to human metapneumovirus (hMPV) Code(s): B97.81 - HUMAN METAPNEUMOVIRUS THE CAUSE OF DISEASES CLASSD ELSWHR Status: Acute (7) Sepsis with acute organ dysfunction Code(s): A41.9 - SEPSIS, UNSPECIFIED ORGANISM; R65.20 - SEVERE SEPSIS WITHOUT SEPTIC SHOCK Status: Acute (8) Anemia, normocytic normochromic Code(s): D64.9 - ANEMIA, UNSPECIFIED Status: Chronic (9) GERD (gastroesophageal reflux disease) Code(s): K21.9 - GASTRO-ESOPHAGEAL REFLUX DISEASE WITHOUT ESOPHAGITIS Status: Chronic Qualifiers: Esophagitis presence: esophagitis presence not specified Qualified Code(s) : K21.9 - Gastro-esophageal reflux disease without esophagitis (10) Hypertension Code(s): I10 - ESSENTIAL (PRIMARY) HYPERTENSION Status: Chronic Qualifiers: Hypertension type: essential hypertension Qualified Code(s): I10 - Essential (primary) hypertension - Plan is on cardizem drip @7.5 -: cefepime and doxy, iv lasix and oral prednisone -: ankur and met acidosis is holding up -: advanced age with multiple med issues -: may tx to tele if ok with specialists * . Review of Systems - Medications/Allergies Allergies/Adverse Reactions: Allergies Allergy/AdvReac Type Severity Reaction Status Date / Time codeine Allergy Verified 01/03/15 16:26 Penicillins Allergy Verified 01/03/15 16:26 Medications: Current Medications Acetaminophen (Tylenol) 650 mg PO Q4H PRN PRN Reason: Headache/Fever or Pain Al Hydroxide/Mg Hydroxide (Maalox) 30 ml PO Q6H PRN PRN Reason: Heartburn or Indigestion Albuterol/Ipratropium (Duoneb) 3 ml NEB [id number] [facility] Last Admin: 06/02/17 08:35 Dose: 3 ml Artificial Tears (Tears Renewed 15ml Bottle) 0 drop EA EYE PRN PRN PRN Reason: Dry Eyes Aspirin (Aspirin Chewable) 81 mg PO DAILY [facility] Last Admin: 06/02/17 08:20 Dose: 81 mg Atorvastatin Calcium (Lipitor) 20 mg PO HS [facility] Last Admin: 06/01/17 20:03 Dose: 20 mg Carbidopa/Levodopa (Sinemet 10/100) 1 tab PO TID [facility] Last Admin: 06/02/17 08:19 Dose: 1 tab Citalopram Hydrobromide (Celexa) 20 mg PO DAILY [facility] Last Admin: 06/02/17 08:20 Dose: 20 mg Dicyclomine HCl (Bentyl) 10 mg PO BID [facility] Last Admin: 06/02/17 08:19 Dose: 10 mg Doxycycline Hyclate (Vibramycin) 100 mg PO BID [facility] Last Admin: 06/02/17 08:20 Dose: 100 mg Famotidine (Pepcid) 20 mg PO DAILY [facility] Last Admin: 06/02/17 08:20 Dose: 20 mg Furosemide (Lasix) 40 mg SLOW IVP DAILY [facility] Stop: 06/04/17 09:01 Last Admin: 06/02/17 08:19 Dose: 40 mg Guaifenesin (Robitussin Sf) 200 mg PO Q4H PRN PRN Reason: Cough Guaifenesin (Mucinex) 600 mg PO Q12HR [facility] Last Admin: 06/02/17 08:20 Dose: 600 mg Haloperidol (Haldol) 2 mg PO Q12H PRN PRN Reason: .AGITATION Last Admin: 06/01/17 02:02 Dose: 2 mg Heparin Sodium (Porcine) (Heparin) 5,000 units SC TID [facility] Last Admin: 06/02/17 08:19 Dose: 5,000 units Hydralazine HCl (Apresoline) 10 mg SLOW IVP Q4H PRN PRN Reason: Systolic BP > 180 Cefepime HCl 1 gm/Miscellaneous Medication 1 each/ Sodium Chloride 10 mls @ 120 mls/hr SLOW IVP 0400,1600 [facility] Last Admin: 06/02/17 04:50 Dose: 10 mls Diltiazem HCl 125 mg/ Sodium (Chloride) 125 mls @ 7.5 mls/hr IVPB INF [facility] PRN Reason: 7.5 MG/HR Last Admin: 06/02/17 08:19 Dose: 125 mls Levothyroxine Sodium (Synthroid) 50 mcg PO 0600 [facility] Last Admin: 06/02/17 05:37 Dose: 50 mcg Loperamide HCl (Imodium) 2 mg PO PRN PRN PRN Reason: Diarrhea/Loose Stools Loratadine (Claritin) 10 mg PO DAILYPRN PRN PRN Reason: Sinus Symptoms Magnesium Hydroxide (Milk Of Magnesium) 30 ml PO DAILYPRN PRN PRN Reason: Constipation Mineral Oil/White Petrolatum (Eucerin Cream) 0 gm TOP BIDPRN PRN PRN Reason: Dry Skin Nitroglycerin (Nitrostat) 0.4 mg SL Q5MIN PRN PRN Reason: Chest Pain Ondansetron HCl (Zofran Odt) 4 mg PO Q6H PRN PRN Reason: Nausea/Vomiting Ondansetron HCl (Zofran) 4 mg IVP Q6H PRN PRN Reason: Nausea/Vomiting Phenol (Chloraseptic [place] 180 Ml Bot) 0 ml PO PRN PRN PRN Reason: Sore Throat Prednisone (Prednisone) 40 mg PO QAM[facility] Last Admin: 06/02/17 08:19 Dose: 40 mg Senna (Senokot) 2 tab PO HSPRN PRN PRN Reason: Constipation Sodium Chloride ([place] Nasal [place] 0.65%) 0 ml EA NARE QIDPRN PRN PRN Reason: Nasal Congestion Sodium Chloride (Flush - Normal Saline) 10 ml IVF Q12HR [facility] Last Admin: 06/02/17 08:20 Dose: 10 ml Sodium Chloride (Flush - Normal Saline) 10 ml IVF PRN PRN PRN Reason: Saline Flush Zolpidem Tartrate (Ambien) 5 mg PO HSPRN PRN PRN Reason: Insomnia Last Admin: 06/01/17 20:03 Dose: 5 mg
--- NOTE | 2017-06-02 11:35 | PDOC.CTH ---
Cardiology Progress Note - Subjective She is doing better now that she could finally sleep. She remains in afib but better rate controlled. - Objective Vital Signs Temp Pulse Resp BP Pulse Ox 06/02/17 08:35 91 24 H 94 L 06/02/17 08:00 99.1 F 94 24 H 99 06/02/17 07:00 99.1 F 94 24 H 101/66 95 06/02/17 04:00 98.5 F 96 17 110/65 95 06/01/17 23:58 97.4 F L 96 18 101/69 95 Weight 179 lb 3.2 oz 06/01/17 06/02/17 06/03/17 06:59 06:59 06:59 Intake Total 260 190 Output Total 1000 1000 Balance -740 -810 - Physical Examination General/Neuro: NAD Neck: no JVD present Lungs: CTA, unlabored respirations Heart: RRR Abdomen: NT/ND Extremities: + edema B (1+) - Telemetry Telemetry Rhythm: Afib HR 90's. - Labs Result Diagrams: 06/02/17 04:18 06/02/17 04:18 Troponin/CKMB Troponin I 0.332 ng/mL (< 0.028) H* 06/02/17 04:18 - Assessment/Plan 1. Afib with RVR 2. Acute on Chronic diastolic HF 3. AMS 4. HTN 5. Hyperlipidemia 6. Pneumonia 7. Moderate to severe TR. PLAN: - Continue rate control for now. - Likely cause of RVR is her pneumonia. - Continue IV lasix.
[2017-06-02 12:05] LABS: Hemoglobin 11.7 g/dL (12.0-16.0); Platelet Count 419 thou/uL (130-400)
[2017-06-02] MEDS: Heparin 10,000 UNITS/ 10 ML VIAL SLOW IVP SCH (12:28)
[2017-06-02] MEDS: Heparin 25,000 units/D5W 500 ML IVPB SCH (12:29)
[2017-06-02 17:55] LABS: PTT 149.7 SEC (22.9-36.1)
[2017-06-02] MEDS: Atorvastatin Calcium 20 MG TAB PO SCH (20:14)
[2017-06-02] MEDS: Zolpidem Tartrate 5 MG TAB PO PRN (20:15)
--- NOTE | 2017-06-02 21:59 | PRG ---
DATE OF SERVICE: 06/02/2017 SUBJECTIVE: Ms. Franco is in no distress. OBJECTIVE: VITAL SIGNS: She is afebrile, heart rate has been between 92 and 111 today, respiratory rate 18 to 2 6, oximetry is 93 on 2-1/2 liters. LUNGS: Crackles at both bases. HEART: Regular rhythm. S1 and S2 are normal. ABDOMEN: Soft and nontender. EXTREMITIES: No clubbing, cyanosis, or major edema. She has trace pitting of her feet. NEUROLOGICAL EXAM: Grossly nonfocal. IMAGING: No new chest radiograph. Chest radiograph from yesterday shows findings suggestive of pulm onary edema. LABORATORY DATA: Hemoglobin 11.7, was 11.3 yesterday. Sodium 140, potassium 3.5, chloride 103, bica rbonate 26, BUN 36, creatinine 1.1. Her ejection fraction is normal, but she does have diastolic dys function and atrial fibrillation. IMPRESSION: 1. Acute hypoxic respiratory failure with pulmonary edema. 2. Positive screen for human metapneumovirus. 3. Acute kidney injury. 4. Atrial fibrillation. 5. Encephalopathy that is improved. Apparently his sleeping aid last night made a difference in her confusion and agitation. PLAN: Continue current care primarily per Cardiology. There are no acute issues and she appears to be clinically improving. She may be able to move to a telemetry bed tomorrow.
[2017-06-03] MEDS: Diltiazem 125 MG in Sodium Chloride 0.9% 100 ML IVPB SCH (00:45)
[2017-06-03] MEDS: Levothyroxine Sodium 50 MCG TAB PO SCH (05:37)
[2017-06-03] MEDS: Cefepime 1 GM, Admixture Fee 1 EACH in Sodium Chloride 0.9% 10 ML SLOW IVP SCH (05:37)
[2017-06-03] MEDS: Carbidopa/Levodopa 10-100 mg Tablet PO SCH ×3 (08:37→20:19)
[2017-06-03] MEDS: predniSONE 20 MG TAB PO SCH (08:37)
[2017-06-03] MEDS: guaiFENesin ER 600 MG TAB PO SCH ×2 (08:37→20:20)
[2017-06-03] MEDS: Doxycycline 100 MG CAP PO SCH ×2 (08:38→20:20)
[2017-06-03] MEDS: Citalopram 20 MG TAB PO SCH (08:38)
[2017-06-03] MEDS: Famotidine 20 MG TAB PO SCH (08:38)
[2017-06-03] MEDS: Furosemide 40 MG/4 ML VIAL SLOW IVP SCH (08:38)
[2017-06-03] MEDS: Dicyclomine 10 MG CAP PO SCH ×2 (08:38→20:20)
[2017-06-03] MEDS ORDERED: Sodium Chloride 0.9% 500 ML IVPB SCH (10:45)
--- NOTE | 2017-06-03 12:37 | PDOC.PN ---
- Subjective Encounter Start Date: 06/03/17 Encounter Start Time: 11:00 Subjective: awake, oriented well -: has sob on minimal amb with PT -: no palp or chest pain - Objective MAR Reviewed: Yes Vital Signs & Weight: Vital Signs (12 hours) Temp Pulse Pulse Pulse Resp BP BP 06/03/17 11:49 97.8 F 93 22 H 06/03/17 08:56 96 90 98/59 L 104/62 06/03/17 08:00 97.6 F 95 18 06/03/17 06:15 84 18 06/03/17 04:00 98.5 F 93 18 BP BP BP Pulse Ox Pulse Ox 06/03/17 11:49 98/63 92 L 06/03/17 08:56 96 06/03/17 08:00 101/64 93 L 06/03/17 06:15 95 06/03/17 04:00 96/62 93 L Weight Weight 177 lb 3.2 oz I&O: 06/02/17 06/03/17 06/04/17 06:59 06:59 06:59 Intake Total 190 390 Output Total 1000 300 Balance -810 90 Result Diagrams: 06/02/17 11:57 06/02/17 04:18 Phys Exam - Physical Examination HEENT: PERRLA, sclera anicteric Neck: no JVD, supple Respiratory: no wheezing, no rales Cardiovascular: no significant murmur, irregular Gastrointestinal: soft, non-tender, no distention, positive bowel sounds Musculoskeletal: no edema, pulses present Neurological: non-focal, moves all 4 limbs Psychiatric: A&O x 3 Dx/Plan (1) Acute diastolic heart failure Code(s): I50.31 - ACUTE DIASTOLIC (CONGESTIVE) HEART FAILURE Status: Acute (2) Acute encephalopathy Code(s): G93.40 - ENCEPHALOPATHY, UNSPECIFIED Status: Resolved (3) Acute respiratory failure with hypoxia Code(s): J96.01 - ACUTE RESPIRATORY FAILURE WITH HYPOXIA Status: Resolved (4) Atrial fibrillation with RVR Code(s): I48.91 - UNSPECIFIED ATRIAL FIBRILLATION Status: Acute Comment: rate controlled (5) Demand ischemia of myocardium Code(s): I24.8 - OTHER FORMS OF ACUTE ISCHEMIC HEART DISEASE Status: Acute (6) Infection due to human metapneumovirus (hMPV) Code(s): B97.81 - HUMAN METAPNEUMOVIRUS THE CAUSE OF DISEASES CLASSD ELSWHR Status: Acute (7) Sepsis with acute organ dysfunction Code(s): A41.9 - SEPSIS, UNSPECIFIED ORGANISM; R65.20 - SEVERE SEPSIS WITHOUT SEPTIC SHOCK Status: Acute Comment: resolving (8) Anemia, normocytic normochromic Code(s): D64.9 - ANEMIA, UNSPECIFIED Status: Chronic (9) GERD (gastroesophageal reflux disease) Code(s): K21.9 - GASTRO-ESOPHAGEAL REFLUX DISEASE WITHOUT ESOPHAGITIS Status: Chronic Qualifiers: Esophagitis presence: esophagitis presence not specified Qualified Code(s) : K21.9 - Gastro-esophageal reflux disease without esophagitis (10) Hypertension Code(s): I10 - ESSENTIAL (PRIMARY) HYPERTENSION Status: Chronic Qualifiers: Hypertension type: essential hypertension Qualified Code(s): I10 - Essential (primary) hypertension - Plan is on cefepime and doxy -: nebs, asp and lipitor -: on heparin and cardizem drip -: pt is a high fall risk and suggest dc heparin if ok with cardio -: on oral prednisone * . Review of Systems - Medications/Allergies Allergies/Adverse Reactions: Allergies Allergy/AdvReac Type Severity Reaction Status Date / Time codeine Allergy Verified 01/03/15 16:26 Penicillins Allergy Verified 01/03/15 16:26 Medications: Current Medications Acetaminophen (Tylenol) 650 mg PO Q4H PRN PRN Reason: Headache/Fever or Pain Al Hydroxide/Mg Hydroxide (Maalox) 30 ml PO Q6H PRN PRN Reason: Heartburn or Indigestion Albuterol/Ipratropium (Duoneb) 3 ml NEB [id number] [facility] Last Admin: 06/03/17 06:15 Dose: 3 ml Artificial Tears (Tears Renewed 15ml Bottle) 0 drop EA EYE PRN PRN PRN Reason: Dry Eyes Aspirin (Aspirin Chewable) 81 mg PO DAILY [facility] Last Admin: 06/03/17 08:37 Dose: 81 mg Atorvastatin Calcium (Lipitor) 20 mg PO HS [facility] Last Admin: 06/02/17 20:14 Dose: 20 mg Carbidopa/Levodopa (Sinemet 10/100) 1 tab PO TID [facility] Last Admin: 06/03/17 08:37 Dose: 1 tab Citalopram Hydrobromide (Celexa) 20 mg PO DAILY [facility] Last Admin: 06/03/17 08:38 Dose: 20 mg Dicyclomine HCl (Bentyl) 10 mg PO BID [facility] Last Admin: 06/03/17 08:38 Dose: 10 mg Doxycycline Hyclate (Vibramycin) 100 mg PO BID [facility] Last Admin: 06/03/17 08:38 Dose: 100 mg Famotidine (Pepcid) 20 mg PO DAILY [facility] Last Admin: 06/03/17 08:38 Dose: 20 mg Furosemide (Lasix) 40 mg SLOW IVP DAILY [facility] Stop: 06/04/17 09:01 Last Admin: 06/03/17 08:38 Dose: 40 mg Guaifenesin (Robitussin Sf) 200 mg PO Q4H PRN PRN Reason: Cough Guaifenesin (Mucinex) 600 mg PO Q12HR [facility] Last Admin: 06/03/17 08:37 Dose: 600 mg Haloperidol (Haldol) 2 mg PO Q12H PRN PRN Reason: .AGITATION Last Admin: 06/01/17 02:02 Dose: 2 mg Heparin Sodium (Porcine) (Heparin 1,000 Units/Ml (10 Ml)) 0 units SLOW IVP ASDIR [facility] PRN Reason: Protocol Last Admin: 06/02/17 12:28 Dose: 4 ml Hydralazine HCl (Apresoline) 10 mg SLOW IVP Q4H PRN PRN Reason: Systolic BP > 180 Cefepime HCl 1 gm/Miscellaneous Medication 1 each/ Sodium Chloride 10 mls @ 120 mls/hr SLOW IVP 0400,1600 [facility] Last Admin: 06/03/17 05:37 Dose: 10 mls Heparin Sodium/Dextrose (Heparin 25,000 Units/D5w 500 Ml) 500 mls @ 0 mls/hr IVPB INF [facility]; Per Protocol PRN Reason: Protocol Last Admin: 06/02/17 12:29 Dose: 500 mls Levothyroxine Sodium (Synthroid) 50 mcg PO 0600 [facility] Last Admin: 06/03/17 05:37 Dose: 50 mcg Loperamide HCl (Imodium) 2 mg PO PRN PRN PRN Reason: Diarrhea/Loose Stools Loratadine (Claritin) 10 mg PO DAILYPRN PRN PRN Reason: Sinus Symptoms Magnesium Hydroxide (Milk Of Magnesium) 30 ml PO DAILYPRN PRN PRN Reason: Constipation Mineral Oil/White Petrolatum (Eucerin Cream) 0 gm TOP BIDPRN PRN PRN Reason: Dry Skin Nitroglycerin (Nitrostat) 0.4 mg SL Q5MIN PRN PRN Reason: Chest Pain Ondansetron HCl (Zofran Odt) 4 mg PO Q6H PRN PRN Reason: Nausea/Vomiting Ondansetron HCl (Zofran) 4 mg IVP Q6H PRN PRN Reason: Nausea/Vomiting Phenol (Chloraseptic [place] 180 Ml Bot) 0 ml PO PRN PRN PRN Reason: Sore Throat Prednisone (Prednisone) 40 mg PO QAM-[facility] Last Admin: 06/03/17 08:37 Dose: 40 mg Senna (Senokot) 2 tab PO HSPRN PRN PRN Reason: Constipation Sodium Chloride ([place] Nasal [place] 0.65%) 0 ml EA NARE QIDPRN PRN PRN Reason: Nasal Congestion Sodium Chloride (Flush - Normal Saline) 10 ml IVF Q12HR [facility] Last Admin: 06/03/17 08:39 Dose: 10 ml Sodium Chloride (Flush - Normal Saline) 10 ml IVF PRN PRN PRN Reason: Saline Flush Zolpidem Tartrate (Ambien) 5 mg PO HSPRN PRN PRN Reason: Insomnia Last Admin: 06/02/17 20:15 Dose: 5 mg
--- NOTE | 2017-06-03 14:36 | PDOC.CTH ---
Cardiology Progress Note - Subjective She is breathing better today. - Objective Vital Signs Temp Pulse Pulse Pulse Resp BP BP 06/03/17 13:20 100 18 06/03/17 11:49 97.8 F 93 22 H 06/03/17 08:56 96 90 98/59 L 104/62 06/03/17 08:00 97.6 F 95 18 06/03/17 06:15 84 18 06/03/17 04:00 98.5 F 93 18 BP BP BP Pulse Ox Pulse Ox 06/03/17 13:20 94 L 06/03/17 11:49 98/63 92 L 06/03/17 08:56 96 06/03/17 08:00 101/64 93 L 06/03/17 06:15 95 06/03/17 04:00 96/62 93 L Weight 177 lb 3.2 oz 06/02/17 06/03/17 06/04/17 06:59 06:59 06:59 Intake Total 190 390 Output Total 1000 300 Balance -810 90 - Physical Examination General/Neuro: NAD Neck: no JVD present Lungs: other: (Coarse bilat ) Heart: other: (irregular) Abdomen: NT/ND Extremities: + edema B (1+) - Telemetry Telemetry Rhythm: Afib HR 90's. - Labs Result Diagrams: 06/02/17 11:57 06/02/17 04:18 Troponin/CKMB Troponin I 0.332 ng/mL (< 0.028) H* 06/02/17 04:18 - Assessment/Plan 1. Afib with RVR 2. Acute on Chronic diastolic HF 3. AMS 4. HTN 5. Hyperlipidemia 6. Pneumonia 7. Moderate to severe TR. PLAN: - Continue rate control for now. - Likely cause of RVR is her pneumonia. - Continue IV lasix today, possibly switch to PO tomorrow depending on how she diureses today.
--- NOTE | 2017-06-03 16:24 | PRG ---
DATE OF SERVICE: 06/03/2017 SUBJECTIVE: Ms. Franco is in no distress. She says she is feeling well. She was sitting in the naomy r. She is oriented x3. OBJECTIVE: VITAL SIGNS: She is afebrile. Heart rate is 93, respiratory rate is 22, oximetry is 93% on 3 liters and blood pressure 90/59. Follow up blood pressure check was 104/62. LUNGS: Clear with the exception of crackles at her lung bases. HEART: Regular rhythm. ABDOMEN: Soft and nontender. EXTREMITIES: Without asymmetry. IMPRESSION: 1. Atrial fibrillation with controlled rate. 2. Diastolic heart failure. 3. Encephalopathy, improved with sleep and decreasing her steroid dosage. 4. Hypertension. 5. Pneumonia. PLAN: Continue current care. Reviewed her medications. She probably will be taken off of her cefepime. Omnicef would be appropriate. She is on doxycycline as well. I am not sure that she needs both anti biotics, but we will observe her on both for now and then make decisions once we are few more days in to the hospitalization. She appears to be improving a little bit each day.
[2017-06-03] MEDS: Atorvastatin Calcium 20 MG TAB PO SCH (20:19)
[2017-06-03] MEDS: Zolpidem Tartrate 5 MG TAB PO PRN (20:20)
[2017-06-03] MEDS: Cefdinir 300 MG CAP PO SCH (20:20)
[2017-06-03] MEDS: Heparin 25,000 units/D5W 500 ML IVPB SCH (20:21)
[2017-06-04] MEDS: Levothyroxine Sodium 50 MCG TAB PO SCH (05:38)
[2017-06-04 06:29] LABS: Hemoglobin 11.1 g/dL (12.0-16.0); Platelet Count 363 thou/uL (130-400)
[2017-06-04] MEDS: Heparin 10,000 UNITS/ 10 ML VIAL SLOW IVP SCH (07:10)
[2017-06-04] MEDS: predniSONE 20 MG TAB PO SCH (08:39)
[2017-06-04] MEDS: Citalopram 20 MG TAB PO SCH (08:39)
[2017-06-04] MEDS: guaiFENesin ER 600 MG TAB PO SCH ×2 (08:39→21:30)
[2017-06-04] MEDS: Doxycycline 100 MG CAP PO SCH ×2 (08:39→21:30)
[2017-06-04] MEDS: Cefdinir 300 MG CAP PO SCH ×2 (08:39→21:30)
[2017-06-04] MEDS: Furosemide 40 MG/4 ML VIAL SLOW IVP SCH (08:39)
[2017-06-04] MEDS: Famotidine 20 MG TAB PO SCH (08:39)
[2017-06-04] MEDS: Carbidopa/Levodopa 10-100 mg Tablet PO SCH ×3 (08:40→21:29)
[2017-06-04] MEDS: Dicyclomine 10 MG CAP PO SCH ×2 (08:41→21:30)
--- NOTE | 2017-06-04 10:26 | PRG ---
DATE OF SERVICE: 06/04/2017 SERVICE: Pulmonary Medicine. INTERVAL HISTORY: The patient is doing great from a respiratory standpoint. She denies any current chest pain, nausea, vomiting, fevers or chills. Otherwise, her mentation has cleared. Her oxygen sa turations are actually doing a little bit better and she is requiring less O2. PHYSICAL EXAMINATION: VITAL SIGNS: Afebrile, pulse 91, blood pressure 108/61, respirations 16, saturation 92% on 3 liters nasal cannula. GENERAL: The patient is awake, alert, in no apparent distress. LUNGS: Decent air entry. Crackles remain. HEART: Normal rate, regular. ABDOMEN: Soft, nontender, and nondistended. Bowel sounds are positive. MUSCULOSKELETAL: No cyanosis or clubbing. There is no pitting in the bilateral lower extremities. NEUROLOGIC: Grossly nonfocal. LABORATORY DATA: Hemoglobin 11.1. Basic metabolic profile is completely unremarkable except for pot assium of 3.5 and magnesium 1.3. ASSESSMENT: 1. Acute hypoxic respiratory failure. 2. Acute bronchitis secondary to human metapneumovirus. 3. Acute kidney injury, resolved. 4. Atrial fibrillation with rapid ventricular response. 5. Severe sepsis. 6. Delirium, resolving. PLAN: I will replace the magnesium. We will repeat electrolytes tomorrow morning. From my perspect sparkle, she is stable for transition to the telemetry unit. We need to continue working on moving her a s much as tolerated. We will continue to wean oxygen if we can.
[2017-06-04] MEDS ORDERED: Magnesium Sulfate 4 GM in Sodium Chloride 0.9% 250 ML 250 ML IVPB SCH (10:30)
[2017-06-04 13:30] LABS: PTT 119.7 SEC (22.9-36.1)
--- NOTE | 2017-06-04 14:25 | PDOC.PN ---
- Subjective Encounter Start Date: 06/04/17 Encounter Start Time: 12:20 Subjective: awake, oriented, slept well last night, ate breakfast -: amb minimally in room with assistance -: no sob/chest pain/palp - Objective MAR Reviewed: Yes Vital Signs & Weight: Vital Signs (12 hours) Temp Pulse Pulse Pulse Resp BP BP 06/04/17 14:00 103 H 18 06/04/17 11:29 80 86 106/71 106/61 06/04/17 11:05 98.0 F 108 H 31 H 06/04/17 08:16 91 16 06/04/17 08:00 98.4 F 91 16 06/04/17 07:29 98.4 F 93 22 H 06/04/17 04:00 97 18 BP Pulse Ox Pulse Ox Pulse Ox 06/04/17 14:00 96 06/04/17 11:29 84 L 94 L 06/04/17 11:05 106/61 100 06/04/17 08:16 92 L 06/04/17 08:00 93 L 06/04/17 07:29 108/61 92 L 06/04/17 04:00 97/63 97 Weight Weight 177 lb 2 oz I&O: 06/03/17 06/04/17 06/05/17 06:59 06:59 06:59 Intake Total 390 1424 720 Output Total 300 960 Balance 90 464 720 Result Diagrams: 06/04/17 06:20 06/02/17 04:18 Phys Exam - Physical Examination HEENT: PERRLA, moist MMs Neck: no JVD, supple Respiratory: no wheezing, no rales Cardiovascular: no significant murmur, irregular Gastrointestinal: soft, non-tender, positive bowel sounds Musculoskeletal: no edema, pulses present Neurological: non-focal, moves all 4 limbs Psychiatric: A&O x 3 Dx/Plan (1) Acute diastolic heart failure Code(s): I50.31 - ACUTE DIASTOLIC (CONGESTIVE) HEART FAILURE Status: Acute Comment: resolving (2) Acute encephalopathy Code(s): G93.40 - ENCEPHALOPATHY, UNSPECIFIED Status: Resolved (3) Acute respiratory failure with hypoxia Code(s): J96.01 - ACUTE RESPIRATORY FAILURE WITH HYPOXIA Status: Resolved (4) Atrial fibrillation with RVR Code(s): I48.91 - UNSPECIFIED ATRIAL FIBRILLATION Status: Acute Comment: rate controlled (5) Demand ischemia of myocardium Code(s): I24.8 - OTHER FORMS OF ACUTE ISCHEMIC HEART DISEASE Status: Acute (6) Infection due to human metapneumovirus (hMPV) Code(s): B97.81 - HUMAN METAPNEUMOVIRUS THE CAUSE OF DISEASES CLASSD ELSWHR Status: Acute (7) Sepsis with acute organ dysfunction Code(s): A41.9 - SEPSIS, UNSPECIFIED ORGANISM; R65.20 - SEVERE SEPSIS WITHOUT SEPTIC SHOCK Status: Resolved (8) Anemia, normocytic normochromic Code(s): D64.9 - ANEMIA, UNSPECIFIED Status: Chronic (9) GERD (gastroesophageal reflux disease) Code(s): K21.9 - GASTRO-ESOPHAGEAL REFLUX DISEASE WITHOUT ESOPHAGITIS Status: Chronic Qualifiers: Esophagitis presence: esophagitis presence not specified Qualified Code(s) : K21.9 - Gastro-esophageal reflux disease without esophagitis (10) Hypertension Code(s): I10 - ESSENTIAL (PRIMARY) HYPERTENSION Status: Chronic Qualifiers: Hypertension type: essential hypertension Qualified Code(s): I10 - Essential (primary) hypertension - Plan hemostable -: may tx to telemetry -: is high risk for falls with anticoag, suggest dc if ok with cardio -: on heparin drip now, asp, lipitor, omnicef and doxy -: to mobilize as tolerated * . Review of Systems - Medications/Allergies Allergies/Adverse Reactions: Allergies Allergy/AdvReac Type Severity Reaction Status Date / Time codeine Allergy Verified 01/03/15 16:26 Penicillins Allergy Verified 01/03/15 16:26 Medications: Current Medications Acetaminophen (Tylenol) 650 mg PO Q4H PRN PRN Reason: Headache/Fever or Pain Al Hydroxide/Mg Hydroxide (Maalox) 30 ml PO Q6H PRN PRN Reason: Heartburn or Indigestion Albuterol/Ipratropium (Duoneb) 3 ml NEB [id number] [facility] Last Admin: 06/04/17 14:00 Dose: 3 ml Artificial Tears (Tears Renewed 15ml Bottle) 0 drop EA EYE PRN PRN PRN Reason: Dry Eyes Aspirin (Aspirin Chewable) 81 mg PO DAILY [facility] Last Admin: 06/04/17 08:39 Dose: 81 mg Atorvastatin Calcium (Lipitor) 20 mg PO HS [facility] Last Admin: 06/03/17 20:19 Dose: 20 mg Carbidopa/Levodopa (Sinemet 10/100) 1 tab PO TID [facility] Last Admin: 06/04/17 08:40 Dose: 1 tab Cefdinir (Omnicef) 300 mg PO BID [facility] Last Admin: 06/04/17 08:39 Dose: 300 mg Citalopram Hydrobromide (Celexa) 20 mg PO DAILY [facility] Last Admin: 06/04/17 08:39 Dose: 20 mg Dicyclomine HCl (Bentyl) 10 mg PO BID [facility] Last Admin: 06/04/17 08:41 Dose: 10 mg Doxycycline Hyclate (Vibramycin) 100 mg PO BID [facility] Last Admin: 06/04/17 08:39 Dose: 100 mg Famotidine (Pepcid) 20 mg PO DAILY [facility] Last Admin: 06/04/17 08:39 Dose: 20 mg Guaifenesin (Robitussin Sf) 200 mg PO Q4H PRN PRN Reason: Cough Guaifenesin (Mucinex) 600 mg PO Q12HR [facility] Last Admin: 06/04/17 08:39 Dose: 600 mg Haloperidol (Haldol) 2 mg PO Q12H PRN PRN Reason: .AGITATION Last Admin: 06/01/17 02:02 Dose: 2 mg Heparin Sodium (Porcine) (Heparin 1,000 Units/Ml (10 Ml)) 0 units SLOW IVP ASDIR [facility] PRN Reason: Protocol Last Admin: 06/04/17 07:10 Dose: 2.35 ml Hydralazine HCl (Apresoline) 10 mg SLOW IVP Q4H PRN PRN Reason: Systolic BP > 180 Heparin Sodium/Dextrose (Heparin 25,000 Units/D5w 500 Ml) 500 mls @ 0 mls/hr IVPB INF [facility]; Per Protocol PRN Reason: Protocol Last Admin: 06/03/17 20:21 Dose: 500 mls Levothyroxine Sodium (Synthroid) 50 mcg PO 0600 [facility] Last Admin: 06/04/17 05:38 Dose: 50 mcg Loperamide HCl (Imodium) 2 mg PO PRN PRN PRN Reason: Diarrhea/Loose Stools Loratadine (Claritin) 10 mg PO DAILYPRN PRN PRN Reason: Sinus Symptoms Magnesium Hydroxide (Milk Of Magnesium) 30 ml PO DAILYPRN PRN PRN Reason: Constipation Mineral Oil/White Petrolatum (Eucerin Cream) 0 gm TOP BIDPRN PRN PRN Reason: Dry Skin Nitroglycerin (Nitrostat) 0.4 mg SL Q5MIN PRN PRN Reason: Chest Pain Ondansetron HCl (Zofran Odt) 4 mg PO Q6H PRN PRN Reason: Nausea/Vomiting Ondansetron HCl (Zofran) 4 mg IVP Q6H PRN PRN Reason: Nausea/Vomiting Phenol (Chloraseptic [place] 180 Ml Bot) 0 ml PO PRN PRN PRN Reason: Sore Throat Prednisone (Prednisone) 40 mg PO QAM-[facility] Last Admin: 06/04/17 08:39 Dose: 40 mg Senna (Senokot) 2 tab PO HSPRN PRN PRN Reason: Constipation Sodium Chloride ([place] Nasal [place] 0.65%) 0 ml EA NARE QIDPRN PRN PRN Reason: Nasal Congestion Sodium Chloride (Flush - Normal Saline) 10 ml IVF Q12HR [facility] Last Admin: 06/04/17 08:42 Dose: 10 ml Sodium Chloride (Flush - Normal Saline) 10 ml IVF PRN PRN PRN Reason: Saline Flush Zolpidem Tartrate (Ambien) 5 mg PO HSPRN PRN PRN Reason: Insomnia Last Admin: 06/03/17 20:20 Dose: 5 mg
[2017-06-04] MEDS ORDERED: Digoxin 0.5 MG/2 ML AMP SLOW IVP SCH (17:30)
--- NOTE | 2017-06-04 17:31 | PDOC.CTH ---
Cardiology Progress Note - Subjective The pt seen and examined. No overnight events. No cardiac complaints. She walked from bed to door today. - Objective Vital Signs Temp Pulse Pulse Pulse Resp BP BP 06/04/17 15:27 98.3 F 111 H 24 H 06/04/17 14:00 103 H 18 06/04/17 11:29 80 86 106/71 106/61 06/04/17 11:05 98.0 F 108 H 31 H 06/04/17 08:16 91 16 06/04/17 08:00 98.4 F 91 16 06/04/17 07:29 98.4 F 93 22 H BP BP Pulse Ox Pulse Ox Pulse Ox 06/04/17 15:27 92/74 96 06/04/17 14:00 96 06/04/17 11:29 84 L 94 L 06/04/17 11:05 106/61 100 06/04/17 08:16 92 L 06/04/17 08:00 93 L 06/04/17 07:29 108/61 92 L Weight 177 lb 2 oz 06/03/17 06/04/17 06/05/17 06:59 06:59 06:59 Intake Total 390 1424 720 Output Total 300 960 Balance 90 464 720 - Physical Examination General/Neuro: alert & oriented x3 Neck: no JVD present Lungs: other: (very coases and diminished at bases) Heart: other: (irregular) Abdomen: soft Extremities: other: (No edema) - Telemetry Telemetry Rhythm: AFib 110-120s - Labs Result Diagrams: 06/04/17 06:20 06/02/17 04:18 Troponin/CKMB Troponin I 0.332 ng/mL (< 0.028) H* 06/02/17 04:18 - Assessment/Plan 1. Afib with RVR - Afib with HR 110-120s. No Diltiazem due to hypotensive; Start Digoxin IV and PO. Recheck BMP tomorrow. Stop Heparin drip and change to Lovenox 80mg subq BID. 2. Acute on Chronic diastolic HF - Stable with Lasix IV; change to Lasix 40mg PO daily from tomorrow; Not on BBlocker or ASIYA/ARE due to hypotensive. 3. Acute Resp. Failure - stable; managed by Disposal Operator 4. Acute encephalopathy - stable at this time; 5. HTN - Hypotensive; holding BBlocker or ASIYA; cont. monitor 6. Hyperlipidemia - on statin 7. Hypothyroidism - on Thyroid med 8. Parkinson's disease - on med MAR reviewed Review of Systems - Review of Systems Constitutional: reports: weakness EENTM: reports: no symptoms reported Respiratory: reports: no symptoms reported Cardiac (ROS): reports: no symptoms reported ABD/GI: reports: no symptoms reported : reports: no symptoms reported
[2017-06-04] MEDS: Enoxaparin Sodium 80 MG/0.8 ML SYRINGE SC SCH (21:27)
[2017-06-04] MEDS: Atorvastatin Calcium 20 MG TAB PO SCH (21:29)
[2017-06-04] MEDS: Digoxin 0.5 MG/2 ML AMP SLOW IVP SCH (23:50)
[2017-06-05] MEDS: Levothyroxine Sodium 50 MCG TAB PO SCH (05:33)
[2017-06-05] MEDS: Digoxin 0.5 MG/2 ML AMP SLOW IVP SCH (05:34)
[2017-06-05 05:46] LABS: Anion Gap 15 mmol/L (10-20); BUN (Urea Nitrogen) 29 mg/dL (9.8-20.1); Calc. Creatinine Clearance 57 mL/min (70-130); Calcium 8.1 mg/dL (7.8-10.44); Carbon Dioxide 28 mmol/L (23-31); Chloride 97 mmol/L (98-107); Estimated GFR-MDRD 59; Glucose 83 mg/dL (83-110); Magnesium 1.7 mg/dL (1.6-2.6); Potassium 3.5 mmol/L (3.5-5.1); Sodium 136 mmol/L (136-145)
--- NOTE | 2017-06-05 09:00 | PDOC.CTH ---
<Hafsa Iglesias - Last Filed: 06/05/17 08:58> Cardiology Progress Note - Subjective The pt seen and examined. No overnight events. No cardiac complaints. She is mildly confused this AM. - Objective Vital Signs Temp Pulse Resp BP Pulse Ox 06/05/17 08:08 97.4 F L 104 H 18 128/64 93 L 06/05/17 07:17 94 L 06/05/17 07:13 91 20 94 L 06/05/17 05:34 91 06/05/17 04:00 98.2 F 87 20 108/66 94 L 06/05/17 00:14 90 16 96 06/05/17 00:00 98.0 F 93 20 117/71 95 06/04/17 23:50 99 Weight 171 lb 06/04/17 06/05/17 06/06/17 06:59 06:59 06:59 Intake Total 1424 1760 Output Total 960 1525 Balance 464 235 - Physical Examination Neck: no JVD present Lungs: other: (diminished at bases) Heart: other: (irregular) Abdomen: soft Extremities: other: (no edema) - Telemetry Telemetry Rhythm: AFib 90-100s - Labs Result Diagrams: 06/04/17 06:20 06/05/17 03:51 Troponin/CKMB Troponin I 0.332 ng/mL (< 0.028) H* 06/02/17 04:18 - Assessment/Plan 1. Afib with RVR - Afib with HR 90-100s with intermittent 110-120s. On Digoxin 0.25mg PO daily and Lovenox 80mg subq BID. 2. Acute on Chronic diastolic HF - Stable. Start Lasix 40mg PO daily from today ; Not on BBlocker or ASIYA/ARE due to hypotensive. 3. Acute Resp. Failure - stable with 3LNC; managed by [facility] [employer] 4. Acute encephalopathy - stable at this time; 5. HTN - Hypotensive; holding BBlocker or ASIYA; cont. monitor 6. Hyperlipidemia - on statin 7. Hypothyroidism - on Thyroid med 8. Parkinson's disease - on med MAR reviewed Review of Systems - Review of Systems Constitutional: reports: no symptoms reported EENTM: reports: no symptoms reported Respiratory: reports: no symptoms reported Cardiac (ROS): reports: no symptoms reported ABD/GI: reports: no symptoms reported : reports: no symptoms reported <Andrea Feliciano - Last Filed: 06/05/17 18:04> Cardiology Progress Note - Objective Vital Signs Temp Pulse Resp BP BP Pulse Ox 06/05/17 13:47 90 18 92 L 06/05/17 13:22 97.7 F 97 20 101/55 L 92 L 06/05/17 08:10 97.4 F L 104 H 18 93 L 06/05/17 08:08 97.4 F L 104 H 18 128/64 93 L 06/05/17 07:17 94 L 06/05/17 07:13 91 20 94 L Weight 171 lb 06/04/17 06/05/17 06/06/17 06:59 06:59 06:59 Intake Total 1424 1760 Output Total 960 1525 Balance 464 235 - Labs Result Diagrams: 06/04/17 06:20 06/05/17 03:51 Troponin/CKMB Troponin I 0.332 ng/mL (< 0.028) H* 06/02/17 04:18 - Assessment/Plan Pt. seen and eval. by me. I agree with the A/P by the [employer].Continue supportive care. Rales still present.
[2017-06-05] MEDS: Citalopram 20 MG TAB PO SCH (09:49)
[2017-06-05] MEDS: predniSONE 20 MG TAB PO SCH (09:49)
[2017-06-05] MEDS: Cefdinir 300 MG CAP PO SCH (09:49)
[2017-06-05] MEDS: Furosemide 40 MG TAB PO SCH (09:49)
[2017-06-05] MEDS: Carbidopa/Levodopa 10-100 mg Tablet PO SCH ×3 (09:49→21:39)
[2017-06-05] MEDS: Famotidine 20 MG TAB PO SCH (09:50)
[2017-06-05] MEDS: Digoxin 0.25 MG TAB PO SCH (09:50)
[2017-06-05] MEDS: Doxycycline 100 MG CAP PO SCH (09:50)
[2017-06-05] MEDS: Dicyclomine 10 MG CAP PO SCH ×2 (09:50→21:39)
[2017-06-05] MEDS: Enoxaparin Sodium 80 MG/0.8 ML SYRINGE SC SCH ×2 (09:50→21:39)
[2017-06-05] MEDS: guaiFENesin ER 600 MG TAB PO SCH ×2 (09:51→21:39)
[2017-06-05] MEDS: Diabetic Tussin 200 MG/10 ML UDCUP PO PRN ×2 (09:54→17:31)
[2017-06-05] MEDS ORDERED: Potassium Chloride 20 MEQ TAB PO SCH (11:15)
[2017-06-05] MEDS ORDERED: Magnesium Sulfate 4 GM in Sodium Chloride 0.9% 250 ML 250 ML IVPB SCH (11:30)
--- NOTE | 2017-06-05 12:21 | PRG ---
DATE OF SERVICE: 06/05/2017 SERVICE: Pulmonary Medicine. INTERVAL HISTORY: The patient is doing really quite well from a respiratory standpoint. She continu es to have pretty significant weakness. She was able to get out of bed into a bedside chair today, b ut would not be able to get by home currently in her current situation. She wants to go home because her is also sick. She wants to go home to take care of him. That being said, she really tr uthfully does not have the strength to do that. Oxygen requirements continued to improve. PHYSICAL EXAMINATION: VITAL SIGNS: Afebrile, pulse 104, blood pressure 128/64, respirations 18, and saturation 93% on 3 li ters nasal cannula. GENERAL: The patient is awake, alert, in no apparent distress. LUNGS: Bilateral crackles are still present. There is no prolonged expiratory phase or wheezing pre sent. HEART: Normal rate, regular. ABDOMEN: Soft, nontender, nondistended. Bowel sounds are positive. MUSCULOSKELETAL: No cyanosis or clubbing. I do not appreciate any edema in the bilateral lower extr emities. NEUROLOGIC: Grossly nonfocal. LABORATORY DATA: Magnesium 1.7. Basic metabolic profile is otherwise unremarkable. Potassium 3.5. Creatinine 0.91, continuing to downtrend. ASSESSMENT: 1. Acute hypoxic respiratory failure. 2. Acute bronchitis secondary to human metapneumovirus. 3. Acute kidney injury, resolved. 4. Atrial fibrillation with rapid ventricular response, currently nearly rate controlled. 5. Severe sepsis. 6. Delirium, resolved. PLAN: We will continue to diurese the patient to euvolemia. I will replace magnesium and potassium today. CBC will be repeated with electrolytes tomorrow morning. From a purely respiratory perspecti ve, she is stable for transition out of the hospital, assuming we can set her up with oxygen at home if she needs it. Pulmonary will continue to follow while she remains in this location.
--- NOTE | 2017-06-05 12:54 | PDOC.PN ---
- Subjective Encounter Start Date: 06/05/17 Encounter Start Time: 10:30 Subjective: no sob, feels better - Objective MAR Reviewed: Yes Vital Signs & Weight: Vital Signs (12 hours) Temp Pulse Resp BP Pulse Ox 06/05/17 08:10 97.4 F L 104 H 18 93 L 06/05/17 08:08 97.4 F L 104 H 18 128/64 93 L 06/05/17 07:17 94 L 06/05/17 07:13 91 20 94 L 06/05/17 05:34 91 06/05/17 04:00 98.2 F 87 20 108/66 94 L Weight Weight 171 lb I&O: 06/04/17 06/05/17 06/06/17 06:59 06:59 06:59 Intake Total 1424 1760 Output Total 960 1525 Balance 464 235 Result Diagrams: 06/04/17 06:20 06/05/17 03:51 Phys Exam - Physical Examination HEENT: PERRLA, moist MMs Neck: no JVD, supple Respiratory: no wheezing, no rales Cardiovascular: RRR, no significant murmur Gastrointestinal: soft, no distention, positive bowel sounds Musculoskeletal: no edema, pulses present Neurological: non-focal, moves all 4 limbs Psychiatric: A&O x 3 Dx/Plan (1) Acute diastolic heart failure Code(s): I50.31 - ACUTE DIASTOLIC (CONGESTIVE) HEART FAILURE Status: Acute Comment: resolving (2) Acute encephalopathy Code(s): G93.40 - ENCEPHALOPATHY, UNSPECIFIED Status: Resolved (3) Acute respiratory failure with hypoxia Code(s): J96.01 - ACUTE RESPIRATORY FAILURE WITH HYPOXIA Status: Resolved (4) Atrial fibrillation with RVR Code(s): I48.91 - UNSPECIFIED ATRIAL FIBRILLATION Status: Acute Comment: rate controlled (5) Demand ischemia of myocardium Code(s): I24.8 - OTHER FORMS OF ACUTE ISCHEMIC HEART DISEASE Status: Acute (6) Infection due to human metapneumovirus (hMPV) Code(s): B97.81 - HUMAN METAPNEUMOVIRUS THE CAUSE OF DISEASES CLASSD ELSWHR Status: Acute (7) Sepsis with acute organ dysfunction Code(s): A41.9 - SEPSIS, UNSPECIFIED ORGANISM; R65.20 - SEVERE SEPSIS WITHOUT SEPTIC SHOCK Status: Resolved (8) Anemia, normocytic normochromic Code(s): D64.9 - ANEMIA, UNSPECIFIED Status: Chronic (9) GERD (gastroesophageal reflux disease) Code(s): K21.9 - GASTRO-ESOPHAGEAL REFLUX DISEASE WITHOUT ESOPHAGITIS Status: Chronic Qualifiers: Esophagitis presence: esophagitis presence not specified Qualified Code(s) : K21.9 - Gastro-esophageal reflux disease without esophagitis (10) Hypertension Code(s): I10 - ESSENTIAL (PRIMARY) HYPERTENSION Status: Chronic Qualifiers: Hypertension type: essential hypertension Qualified Code(s): I10 - Essential (primary) hypertension - Plan lovenox full dose, asp, lipitor -: oral lasix, prednisone -: digoxin started -: PT to mobilize as tolerated -: dc plan per specialist advice * . Review of Systems - Medications/Allergies Allergies/Adverse Reactions: Allergies Allergy/AdvReac Type Severity Reaction Status Date / Time codeine Allergy Verified 01/03/15 16:26 Penicillins Allergy Verified 01/03/15 16:26 Medications: Current Medications Acetaminophen (Tylenol) 650 mg PO Q4H PRN PRN Reason: Headache/Fever or Pain Al Hydroxide/Mg Hydroxide (Maalox) 30 ml PO Q6H PRN PRN Reason: Heartburn or Indigestion Albuterol/Ipratropium (Duoneb) 3 ml NEB [id number] [facility] Last Admin: 06/05/17 07:13 Dose: 3 ml Aspirin (Aspirin Chewable) 81 mg PO DAILY [facility] Last Admin: 06/05/17 09:49 Dose: 81 mg Atorvastatin Calcium (Lipitor) 20 mg PO HS [facility] Last Admin: 06/04/17 21:29 Dose: 20 mg Carbidopa/Levodopa (Sinemet 10/100) 1 tab PO TID [facility] Last Admin: 06/05/17 09:49 Dose: 1 tab Citalopram Hydrobromide (Celexa) 20 mg PO DAILY [facility] Last Admin: 06/05/17 09:49 Dose: 20 mg Dicyclomine HCl (Bentyl) 10 mg PO BID [facility] Last Admin: 06/05/17 09:50 Dose: 10 mg Digoxin (Lanoxin) 0.25 mg PO QAM [facility] Last Admin: 06/05/17 09:50 Dose: 0.25 mg Enoxaparin Sodium (Lovenox) 80 mg SC 0900,2100 [facility] Last Admin: 06/05/17 09:50 Dose: 80 mg Famotidine (Pepcid) 20 mg PO DAILY [facility] Last Admin: 06/05/17 09:50 Dose: 20 mg Furosemide (Lasix) 40 mg PO DAILY-AC [facility] Last Admin: 06/05/17 09:49 Dose: 40 mg Guaifenesin (Robitussin Sf) 200 mg PO Q4H PRN PRN Reason: Cough Last Admin: 06/05/17 09:54 Dose: 200 mg Guaifenesin (Mucinex) 600 mg PO Q12HR [facility] Last Admin: 06/05/17 09:51 Dose: 600 mg Haloperidol (Haldol) 2 mg PO Q12H PRN PRN Reason: .AGITATION Last Admin: 06/01/17 02:02 Dose: 2 mg Hydralazine HCl (Apresoline) 10 mg SLOW IVP Q4H PRN PRN Reason: Systolic BP > 180 Magnesium Sulfate 4 gm/ Sodium (Chloride) 258 mls @ 86 mls/hr IVPB NOW [facility] Stop: 06/05/17 14:29 Levothyroxine Sodium (Synthroid) 50 mcg PO 0600 [facility] Last Admin: 06/05/17 05:33 Dose: 50 mcg Loperamide HCl (Imodium) 2 mg PO PRN PRN PRN Reason: Diarrhea/Loose Stools Loratadine (Claritin) 10 mg PO DAILYPRN PRN PRN Reason: Sinus Symptoms Magnesium Hydroxide (Milk Of Magnesium) 30 ml PO DAILYPRN PRN PRN Reason: Constipation Mineral Oil/White Petrolatum (Eucerin Cream) 0 gm TOP BIDPRN PRN PRN Reason: Dry Skin Nitroglycerin (Nitrostat) 0.4 mg SL Q5MIN PRN PRN Reason: Chest Pain Ondansetron HCl (Zofran Odt) 4 mg PO Q6H PRN PRN Reason: Nausea/Vomiting Ondansetron HCl (Zofran) 4 mg IVP Q6H PRN PRN Reason: Nausea/Vomiting Phenol (Chloraseptic [place] 180 Ml Bot) 0 ml PO PRN PRN PRN Reason: Sore Throat Potassium Chloride (K-Dur) 40 meq PO NOW [facility] Stop: 06/05/17 13:15 Prednisone (Prednisone) 40 mg PO QA-[facility] Stop: 06/08/17 08:01 Last Admin: 06/05/17 09:49 Dose: 40 mg Senna (Senokot) 2 tab PO HSPRN PRN PRN Reason: Constipation Sodium Chloride (Spencer Nasal [place] 0.65%) 0 ml EA NARE QIDPRN PRN PRN Reason: Nasal Congestion Sodium Chloride (Flush - Normal Saline) 10 ml IVF Q12HR [facility] Last Admin: 06/05/17 09:51 Dose: 10 ml Sodium Chloride (Flush - Normal Saline) 10 ml IVF PRN PRN PRN Reason: Saline Flush Zolpidem Tartrate (Ambien) 5 mg PO HSPRN PRN PRN Reason: Insomnia Last Admin: 06/03/17 20:20 Dose: 5 mg
[2017-06-05] MEDS: Atorvastatin Calcium 20 MG TAB PO SCH (21:39)
[2017-06-06 05:39] LABS: Anion Gap 13 mmol/L (10-20); BUN (Urea Nitrogen) 27 mg/dL (9.8-20.1); Calc. Creatinine Clearance 57 mL/min (70-130); Calcium 8.1 mg/dL (7.8-10.44); Carbon Dioxide 31 mmol/L (23-31); Chloride 96 mmol/L (98-107); Estimated GFR-MDRD 60; Glucose 105 mg/dL (83-110); Magnesium 2.4 mg/dL (1.6-2.6); Sodium 136 mmol/L (136-145)
[2017-06-06] MEDS: Levothyroxine Sodium 50 MCG TAB PO SCH (05:55)
[2017-06-06 05:58] LABS: Band 1 % (5-11); Hemoglobin 12.2 g/dL (12.0-16.0); Lymphocytes 7 % (21-51); MDiff Complete? YES; Mean Corpuscular HGB CONC 30.4 g/dL (32.0-36.0); Mean Corpuscular Hemoglobin 28.9 pg (27.0-31.0); Mean Corpuscular Volume 94.8 fl (81.0-99.0); Mean Platelet Volume 7.9 fL (7.4-10.4); Monocytes 3 % (0-10); Neutrophil 89 % (42-75); Platelet Count 301 thou/uL (130-400); RBC Distribution Width 13.1 % (11.5-14.5); Red Blood Cell (RBC) Count 4.22 mill/uL (4.20-5.40); White Blood Cell (WBC) Count 17.2 thou/uL (4.8-10.8)
--- NOTE | 2017-06-06 08:32 | PDOC.PN ---
- Subjective Encounter Start Date: 06/06/17 Encounter Start Time: 08:31 Ms. Franco was seen today in follow-up of acute respiratory failure. She does not have any complaints this morning. She admits that when she gets up, she does feel short of breath. she is on supplemental oxygen, at 2L NC. - Objective MAR Reviewed: Yes Vital Signs & Weight: Vital Signs (12 hours) Temp Pulse Resp BP Pulse Ox 06/06/17 06:58 80 16 06/06/17 04:00 98.7 F 87 20 105/57 L 96 06/06/17 00:30 81 18 96 Weight Weight 179 lb 6.4 oz I&O: 06/05/17 06/06/17 06/07/17 06:59 06:59 06:59 Intake Total 1760 550 Output Total 1525 350 Balance 235 200 Result Diagrams: 06/06/17 04:46 06/06/17 04:46 Phys Exam - Physical Examination HEENT: PERRLA Respiratory: no rales, wheezing present + rhonchi bilaterally Cardiovascular: RRR, no significant murmur, no rub Gastrointestinal: soft, non-tender, no distention, positive bowel sounds + non-pitting edema Psychiatric: normal affect Deviation from normal: She is not confused this morning Dx/Plan (1) Acute respiratory failure with hypoxia Code(s): J96.01 - ACUTE RESPIRATORY FAILURE WITH HYPOXIA Status: Resolved (2) Acute diastolic heart failure Code(s): I50.31 - ACUTE DIASTOLIC (CONGESTIVE) HEART FAILURE Status: Acute Comment: resolving (3) Acute kidney failure Status: Acute (4) Atrial fibrillation with RVR Code(s): I48.91 - UNSPECIFIED ATRIAL FIBRILLATION Status: Acute Comment: rate controlled (5) Infection due to human metapneumovirus (hMPV) Code(s): B97.81 - HUMAN METAPNEUMOVIRUS THE CAUSE OF DISEASES CLASSD ELSWHR Status: Acute (6) Hypertension Code(s): I10 - ESSENTIAL (PRIMARY) HYPERTENSION Status: Chronic Qualifiers: Hypertension type: essential hypertension Qualified Code(s): I10 - Essential (primary) hypertension (7) Acute encephalopathy Code(s): G93.40 - ENCEPHALOPATHY, UNSPECIFIED Status: Resolved - Plan * Acute respiratory failure due to Pneumonia, from Human metapneumovirus, and diastolic heart failure.- improved * She is now on Lasix orally * AFIB- her heart rate is controlled- when to start oral anticoagulation- will defer to Cardiology * HTN- blood pressure is controlled * Acute renal failure- resolved- creatinine is now 0.91 * Hypothyroidism- clinically euthyroid * Home with home health at discharge?
[2017-06-06] MEDS: predniSONE 20 MG TAB PO SCH (08:39)
[2017-06-06] MEDS: Carbidopa/Levodopa 10-100 mg Tablet PO SCH ×3 (08:39→20:33)
[2017-06-06] MEDS: Citalopram 20 MG TAB PO SCH (08:39)
[2017-06-06] MEDS: Furosemide 40 MG TAB PO SCH (08:39)
[2017-06-06] MEDS: Digoxin 0.25 MG TAB PO SCH (08:39)
[2017-06-06] MEDS: Dicyclomine 10 MG CAP PO SCH ×2 (08:39→20:33)
[2017-06-06] MEDS: Diabetic Tussin 200 MG/10 ML UDCUP PO PRN ×2 (08:40→16:04)
[2017-06-06] MEDS: guaiFENesin ER 600 MG TAB PO SCH ×2 (08:40→20:33)
[2017-06-06] MEDS: Enoxaparin Sodium 80 MG/0.8 ML SYRINGE SC SCH ×2 (08:40→20:33)
[2017-06-06] MEDS: Famotidine 20 MG TAB PO SCH (08:40)
[2017-06-06] MEDS: Digoxin 0.125 MG TAB PO SCH (08:58)
[2017-06-06 12:46] LABS: Bilirubin Negative (Negative); Blood, Urine Large (Negative); Clarity CLOUDY (Clear); Glucose, Urine (Dipstick) Negative (Negative); Leukocyte Trace (Negative); Nitrite Negative (Negative); Protein, Urine (Dipstick) Trace mg/dL (Neg-Trace); Specific Gravity, Urine 1.011 (1.002-1.036); Urobilinogen 0.2 mg/dL (0.2-1.0); pH, Urine 5.5 (5.0-9.0)
[2017-06-06 12:49] LABS: Bacteria/HPF None Seen HPF (None Seen); Hyaline Casts/LPF 0-3 HYALINE CAST LPF (0-3 Hyaline); Pathc Cast-AUWi Flag 0.58 (0-2.49); RBC/HPF GREATER THAN 50-TNTC HPF (0-3); Squamous Epithelial None Seen HPF (0-3)
--- NOTE | 2017-06-06 13:30 | PDOC.CTH ---
<Hafsa Iglesias - Last Filed: 06/06/17 13:28> Cardiology Progress Note - Subjective The pt seen and examined. No overnight events. No cardiac complaints. - Objective Vital Signs Temp Pulse Resp BP Pulse Ox 06/06/17 13:18 84 16 06/06/17 11:40 97.5 F L 90 20 116/63 96 06/06/17 08:58 84 06/06/17 08:30 97.3 F L 84 20 121/68 92 L 06/06/17 08:00 97.3 F L 84 20 92 L 06/06/17 06:58 80 16 06/06/17 04:00 98.7 F 87 20 105/57 L 96 Weight 179 lb 6.4 oz 06/05/17 06/06/17 06/07/17 06:59 06:59 06:59 Intake Total 1760 550 Output Total 1525 350 Balance 235 200 - Physical Examination General/Neuro: other: (mildly confused) Neck: no JVD present Lungs: other: (coarses and diminished at bases) Heart: RRR Abdomen: soft Extremities: other: (No edema) - Telemetry Telemetry Rhythm: SR - Labs Result Diagrams: 06/06/17 04:46 06/06/17 04:46 Troponin/CKMB Troponin I 0.332 ng/mL (< 0.028) H* 06/02/17 04:18 - Assessment/Plan 1. Afib with RVR - Converted back to SR from Afib on 06/05/17; On Digoxin 0.125mg PO daily and Lovenox 80mg subq BID. Lovenox will be d/briseida and start ASA 325mg daily. Not on OAC at this moment due to high risk of fall. 2. Acute on Chronic diastolic HF - Stable. Start Lasix 40mg PO daily from today ; Not on BBlocker or ASIYA/ARE due to hypotensive. 3. Acute Resp. Failure - stable with 3LNC; managed by Supervisor [employer] 4. Acute encephalopathy - stable at this time; 5. HTN - Hypotensive; holding BBlocker or ASIYA; cont. monitor 6. Hyperlipidemia - on statin 7. Hypothyroidism - on Thyroid med 8. Parkinson's disease - on med MAR reviewed Review of Systems - Review of Systems Constitutional: reports: no symptoms reported EENTM: reports: no symptoms reported Respiratory: reports: no symptoms reported Cardiac (ROS): reports: no symptoms reported ABD/GI: reports: no symptoms reported : reports: no symptoms reported <Andrea Feliciano - Last Filed: 06/06/17 18:27> Cardiology Progress Note - Objective Vital Signs Temp Pulse Resp BP BP Pulse Ox 06/06/17 15:55 98 F 84 18 109/59 L 96 06/06/17 13:18 84 16 06/06/17 11:40 97.5 F L 90 20 116/63 96 06/06/17 08:58 84 06/06/17 08:30 97.3 F L 84 20 121/68 92 L 06/06/17 08:00 97.3 F L 84 20 92 L 06/06/17 06:58 80 16 Weight 179 lb 6.4 oz 06/05/17 06/06/17 06/07/17 06:59 06:59 06:59 Intake Total 1760 550 720 Output Total 1525 350 925 Balance 235 200 -205 - Labs Result Diagrams: 06/06/17 04:46 06/06/17 04:46 Troponin/CKMB Troponin I 0.332 ng/mL (< 0.028) H* 06/02/17 04:18 - Assessment/Plan pt. seen and eval. by me. I agree with the A/P by the CRAFT MANAGER. She has an increased risk of falls and i would advise ASA for oral anticoagulation and antiplatelet therapy. She is maintaining NSR. Consider diltiazem if the BP tolerates. She is still coughing and the lungs have bilat. coarse rhonchi. continue to monitor. Hopefully to rehab soon.
[2017-06-06] MEDS: Atorvastatin Calcium 20 MG TAB PO SCH (20:33)
[2017-06-07] MEDS: Levothyroxine Sodium 50 MCG TAB PO SCH (05:36)
[2017-06-07 06:07] LABS: Anion Gap 15 mmol/L (10-20); BUN (Urea Nitrogen) 21 mg/dL (9.8-20.1); Calc. Creatinine Clearance 70 mL/min (70-130); Carbon Dioxide 30 mmol/L (23-31); Chloride 94 mmol/L (98-107); Estimated GFR-MDRD 72; Glucose 80 mg/dL (83-110); Magnesium 1.9 mg/dL (1.6-2.6); Potassium 4.2 mmol/L (3.5-5.1); Sodium 135 mmol/L (136-145)
[2017-06-07] MEDS: Digoxin 0.125 MG TAB PO SCH (09:57)
[2017-06-07] MEDS: guaiFENesin ER 600 MG TAB PO SCH ×2 (09:57→22:29)
[2017-06-07] MEDS: Furosemide 40 MG TAB PO SCH (09:58)
[2017-06-07] MEDS: Famotidine 20 MG TAB PO SCH (09:58)
[2017-06-07] MEDS: predniSONE 20 MG TAB PO SCH (09:58)
[2017-06-07] MEDS: Dicyclomine 10 MG CAP PO SCH ×2 (09:58→22:29)
[2017-06-07] MEDS: Carbidopa/Levodopa 10-100 mg Tablet PO SCH ×3 (09:58→22:29)
[2017-06-07] MEDS: Citalopram 20 MG TAB PO SCH (09:58)
[2017-06-07] MEDS: Enoxaparin Sodium 80 MG/0.8 ML SYRINGE SC SCH (09:59)
[2017-06-07] MEDS: Diabetic Tussin 200 MG/10 ML UDCUP PO PRN (10:24)
--- NOTE | 2017-06-07 11:23 | PDOC.PN ---
- Subjective Encounter Start Date: 06/07/17 Encounter Start Time: 11:21 Ms. Franco was seen today in follow-up. She says she notes some lower abdominal/ suprapubic pain. She is breathing a bit better today. - Objective MAR Reviewed: Yes Vital Signs & Weight: Vital Signs (12 hours) Temp Pulse Resp BP Pulse Ox 06/07/17 09:57 98 06/07/17 08:00 96.4 F L 81 18 112/58 L 94 L 06/07/17 06:30 80 16 95 06/07/17 04:00 97.6 F 85 16 115/59 L 91 L 06/07/17 00:17 81 16 94 L 06/07/17 00:00 97.9 F 83 16 117/60 92 L Weight Weight 178 lb 4.8 oz I&O: 06/06/17 06/07/17 06/08/17 06:59 06:59 06:59 Intake Total 550 870 Output Total 350 1300 Balance 200 -430 Result Diagrams: 06/06/17 04:46 06/07/17 05:13 Phys Exam - Physical Examination HEENT: PERRLA + rhonchi billaterally, and rales at the bases Cardiovascular: RRR, no significant murmur, no rub Gastrointestinal: soft, non-tender, positive bowel sounds Musculoskeletal: edema present trace non-pitting edema Dx/Plan (1) Acute respiratory failure with hypoxia Code(s): J96.01 - ACUTE RESPIRATORY FAILURE WITH HYPOXIA Status: Resolved (2) Acute diastolic heart failure Code(s): I50.31 - ACUTE DIASTOLIC (CONGESTIVE) HEART FAILURE Status: Acute Comment: resolving (3) Acute kidney failure Status: Acute (4) Atrial fibrillation with RVR Code(s): I48.91 - UNSPECIFIED ATRIAL FIBRILLATION Status: Acute Comment: rate controlled (5) Infection due to human metapneumovirus (hMPV) Code(s): B97.81 - HUMAN METAPNEUMOVIRUS THE CAUSE OF DISEASES CLASSD ELSWHR Status: Acute (6) Hypertension Code(s): I10 - ESSENTIAL (PRIMARY) HYPERTENSION Status: Chronic Qualifiers: Hypertension type: essential hypertension Qualified Code(s): I10 - Essential (primary) hypertension (7) Acute encephalopathy Code(s): G93.40 - ENCEPHALOPATHY, UNSPECIFIED Status: Resolved - Plan * Acute on chronic diastolic heart failure- improved- continue Lasix * Pneumonia from Human Metapneumovirus- improving as well repeat Chest X-ray is pending * Hematuria- this is likely from sparks trauma- will remove, and monitor her overnight to make sure she can void * Metabolic encephalopathy-resolved * AFIB- heart rate is stable, and she will be placed on aspirin for stroke prevention due to the high risk for falls. * Leukocytosis- likely from steroids * Continue to wean oxygen as tolerated
--- NOTE | 2017-06-07 12:46 | RAD ---
CHEST PA AND LATERAL: HISTORY: An 86-year-old female for followup infiltrate/edema. Followup bilateral lower extremity pain and brigitte ma and shortness of breath. COMPARISON: 06/01/17. FINDINGS: There is again noted to be a very large hiatal hernia. There are bilateral interstitial and some ret iculonodular parenchymal changes noted bilaterally, slightly more prominent in the right upper mid [place] ng zone and in both bases. Overall appearance is stable from 06/01/17. Biapical pleural thickening. Bilateral costophrenic angle blunting. At least borderline-size heart. IMPRESSION: Stable bilateral increased interstitial and reticulonodular parenchymal changes and probable bilatera l pleural effusions certainly concerning for congestion and the possibility of bilateral edema, which is somewhat asymmetric. There may well be some chronic interstitial component as well. Continued s hort-term followup for clearing or stability. POS: [facility]
--- NOTE | 2017-06-07 13:01 | PRG ---
DATE OF SERVICE: 06/07/2017 SERVICE: Pulmonary Medicine INTERVAL HISTORY: The patient is actually breathing fairly comfortably today. She denies any curren t chest pain, nausea, vomiting or shortness of breath. She requires a little bit of oxygen still. T hat being said, her hypoxic respiratory failure has dramatically improved during the course of this h ospital stay. Last x-ray that we have on the patient was on the . Otherwise, there were no even ts overnight. PHYSICAL EXAMINATION: VITAL SIGNS: Afebrile, pulse 81, blood pressure 112/58, respirations 18, saturation 94% on 2 liters nasal cannula. GENERAL: Patient is awake, alert, in no apparent distress. LUNGS: Decent air entry bilaterally. Crackles persist. No prolonged expiratory phase or wheezing a ppreciated. HEART: Normal rate, regular. ABDOMEN: Soft, nontender, nondistended. Bowel sounds are positive. MUSCULOSKELETAL: No cyanosis or clubbing. No pitting in the bilateral lower extremities. NEUROLOGIC: Grossly nonfocal. LABORATORY DATA: WBC 17.2, hemoglobin 12.2, and platelets 301,000. Creatinine 0.76. Basic metaboli c profile is otherwise unremarkable. Magnesium 1.9. ASSESSMENT: 1. Acute hypoxic respiratory failure. 2. Acute bronchitis secondary to human metapneumovirus. 3. Atrial fibrillation with rapid ventricular response, returned to sinus rhythm. 4. Severe sepsis. 5. Delirium, resolved. PLAN: From my perspective, the patient is stable for transition out of the hospital. I will repeat a chest x-ray at this time to verify that the volume overload picture and/or inflammatory profile mcleod s improved. We will continue to wean away the oxygen at this time. Hopefully, she will be able to t ransition out of the hospital. If she needs oxygen for a couple of weeks, we can reassess her need f or this in the outpatient setting. I will certainly have her follow up with me when she leaves the h ospital in 4 weeks with a pre-clinic chest x-ray.
--- NOTE | 2017-06-07 13:55 | PDOC.CTH ---
<Hafsa Iglesias - Last Filed: 06/07/17 13:53> Cardiology Progress Note - Subjective The pt seen and examined. No overnight events. No cardiac complaints. She is up to chair. - Objective Vital Signs Temp Pulse Resp BP Pulse Ox 06/07/17 13:21 74 18 95 06/07/17 09:57 98 06/07/17 08:00 96.4 F L 81 18 112/58 L 94 L 06/07/17 06:30 80 16 95 06/07/17 04:00 97.6 F 85 16 115/59 L 91 L Admit Weight 182 lb 15.739 oz Weight 178 lb 4.8 oz 06/06/17 06/07/17 06/08/17 06:59 06:59 06:59 Intake Total 550 870 Output Total 350 1300 Balance 200 -430 - Physical Examination General/Neuro: alert & oriented x3 Neck: no JVD present Lungs: other: (coarses and diminished at bases) Heart: RRR Abdomen: soft Extremities: other: (No edema) - Labs Result Diagrams: 06/06/17 04:46 06/07/17 05:13 Troponin/CKMB Troponin I 0.332 ng/mL (< 0.028) H* 06/02/17 04:18 - Assessment/Plan 1. Afib with RVR - Converted back to SR from Afib on 06/05/17; On Digoxin 0.125mg PO daily and ASA 325mg daily. Not OAC at this moment due to high risk of fall. Consider diltiazem if the BP tolerates. 2. Acute on Chronic diastolic HF - Stable with Lasix 40mg PO daily; start Lisinopril 2.5mg daily from today. 3. Acute Resp. Failure - stable with 3LNC; managed by Forest Ecologist 4. Acute encephalopathy - stable at this time; 5. HTN - start Lisinopril 2.5mg daily from today; cont. monitor 6. Hyperlipidemia - on statin 7. Hypothyroidism - on Thyroid med 8. Parkinson's disease - on med MAR reviewed Review of Systems - Review of Systems Constitutional: reports: no symptoms reported EENTM: reports: no symptoms reported Respiratory: reports: no symptoms reported Cardiac (ROS): reports: no symptoms reported ABD/GI: reports: no symptoms reported : reports: no symptoms reported <Andrea Feliciano - Last Filed: 06/07/17 18:08> Cardiology Progress Note - Objective Vital Signs Temp Pulse Resp BP BP BP Pulse Ox 06/07/17 16:00 97.8 F 86 16 107/56 L 06/07/17 14:47 86 107/56 L 06/07/17 13:21 74 18 95 06/07/17 12:00 97.9 F 82 16 109/62 94 L 06/07/17 09:57 98 06/07/17 08:00 96.4 F L 81 18 112/58 L 94 L 06/07/17 06:30 80 16 95 Admit Weight 182 lb 15.739 oz Weight 178 lb 4.8 oz 06/06/17 06/07/17 06/08/17 06:59 06:59 06:59 Intake Total 550 870 Output Total 350 1300 225 Balance 200 -430 -225 - Labs Result Diagrams: 06/06/17 04:46 06/07/17 05:13 Troponin/CKMB Troponin I 0.332 ng/mL (< 0.028) H* 06/02/17 04:18 - Assessment/Plan Pt. seen and eval. by me. I agree with the a/p by the FRESH FO[employer] CAKE DECORATOR. From a cardiac standpoint she is stable. Continue present management.
[2017-06-07] MEDS ORDERED: Lisinopril 2.5 MG TAB PO SCH (14:00)
[2017-06-07] MEDS ORDERED: Albumin 25% 25 GM/100 ML BOT IVPB ONE (21:50)
[2017-06-07] MEDS ORDERED: Albumin 25% 25 GM/100 ML BOT IVPB SCH (21:51)
[2017-06-07] MEDS: Atorvastatin Calcium 20 MG TAB PO SCH (22:28)
--- NOTE | 2017-06-07 22:30 | PDOC.EVN ---
Event Note - Event Note Event Note: RN called - Pt is hypotensive with BP in 70-80s with hypoxia. Not in resp distress. Will get Stat HH, troponin and CXR. One dose Albumin. Transfer to IM for close monitoring.
[2017-06-07 22:58] LABS: Troponin I 0.063 ng/mL (< 0.028)
--- NOTE | 2017-06-07 23:40 | RAD ---
AP VIEW OF THE CHEST INDICATION: Shortness of breath. COMPARISON: Prior exam dated 06/07/17. IMPRESSION: The examination is not appreciably changed from the comparison exam. There is prominent hiatal hernia . Diffuse interstitial and reticulonodular opacities persists. Small bilateral pleural effusions are similar. Mild cardiomegaly is stable. Osseous structures are unchanged. POS: [facility]
[2017-06-08 04:19] LABS: #Eosinphils 0.1 thou/uL (0.0-0.7); #Lymphocytes 1.2 thou/uL (1.20-3.40); #Monocytes 1.1 thou/uL (0.11-0.59); #Neutrophils 11.3 thou/uL (1.40-6.50); %Basophils 0.2 % (0.0-1.0); %Eosinophils 0.6 % (0.0-10.0); %Lymphocytes 8.6 % (21.0-51.0); %Neutrophils 82.7 % (42.0-75.0); Hemoglobin 8.6 g/dL (12.0-16.0); Mean Corpuscular HGB CONC 31.4 g/dL (32.0-36.0); Mean Corpuscular Hemoglobin 29.6 pg (27.0-31.0); Mean Platelet Volume 8.2 fL (7.4-10.4); Platelet Count 272 thou/uL (130-400); RBC Distribution Width 12.9 % (11.5-14.5); Red Blood Cell (RBC) Count 2.92 mill/uL (4.20-5.40); White Blood Cell (WBC) Count 13.6 thou/uL (4.8-10.8)
[2017-06-08 04:28] LABS: Anion Gap 12 mmol/L (10-20); BUN (Urea Nitrogen) 28 mg/dL (9.8-20.1); Calc. Creatinine Clearance 47 mL/min (70-130); Calcium 8.4 mg/dL (7.8-10.44); Carbon Dioxide 35 mmol/L (23-31); Chloride 92 mmol/L (98-107); Estimated GFR-MDRD 47; Glucose 79 mg/dL (83-110); Magnesium 1.7 mg/dL (1.6-2.6); Potassium 3.7 mmol/L (3.5-5.1); Sodium 135 mmol/L (136-145)
[2017-06-08] MEDS: Furosemide 40 MG TAB PO SCH (07:32)
[2017-06-08] MEDS: Levothyroxine Sodium 50 MCG TAB PO SCH (07:32)
[2017-06-08] MEDS ORDERED: Sodium Chloride 0.9% 250 ML IV SCH ×2 (08:30→18:30)
[2017-06-08] MEDS: Aspirin 325 mg Enteric Coated Tablet PO SCH (08:31)
[2017-06-08] MEDS: predniSONE 20 MG TAB PO SCH (08:32)
[2017-06-08] MEDS: guaiFENesin ER 600 MG TAB PO SCH ×2 (08:32→20:16)
[2017-06-08] MEDS: Carbidopa/Levodopa 10-100 mg Tablet PO SCH ×3 (08:33→20:16)
[2017-06-08] MEDS: Dicyclomine 10 MG CAP PO SCH ×2 (08:33→20:16)
[2017-06-08] MEDS: Citalopram 20 MG TAB PO SCH (08:33)
[2017-06-08] MEDS: Digoxin 0.125 MG TAB PO SCH (08:33)
--- NOTE | 2017-06-08 08:33 | PDOC.CTH ---
<Hafsa Iglesias - Last Filed: 06/08/17 08:30> Cardiology Progress Note - Subjective The pt seen and examined. The pt was transferred to [facility] from [facility] due to Hypotensive last night. Her BP overnight was > 90s. Her BP this AM has been 80s after Lasix was given? The pt is lethargic. - Objective Vital Signs Temp Pulse Resp BP Pulse Ox 06/08/17 07:30 98.1 F 72 20 102/45 L 100 06/08/17 04:00 97.9 F 80 18 96/39 L 97 06/08/17 01:41 82 16 95 06/07/17 22:45 97.4 F L 84 22 H 80/42 L 100 06/07/17 20:55 98.4 F 84 20 87/49 L 94 L Admit Weight 182 lb 15.739 oz Weight 177 lb 06/07/17 06/08/17 06/09/17 06:59 06:59 06:59 Intake Total 870 Output Total 1300 475 Balance -430 -475 - Physical Examination Neck: carotid US brisk Lungs: other: (diminished at bases) Heart: RRR Abdomen: soft Extremities: other: (No edema) - Telemetry Telemetry Rhythm: SR 80s - Labs Result Diagrams: 06/08/17 03:38 06/08/17 03:38 Troponin/CKMB Troponin I 0.063 ng/mL (< 0.028) H 06/07/17 22:22 - Assessment/Plan 1. Afib with RVR - Converted back to SR from Afib on 06/05/17; On Digoxin 0.125mg PO daily and ASA 325mg daily. Not OAC at this moment due to high risk of fall. Consider diltiazem if the BP tolerates. 2. Acute on Chronic diastolic HF - Stable with Lasix 40mg PO daily; start Lisinopril 2.5mg daily from today. 3. Acute Resp. Failure - stable with 3LNC; managed by Plumbing Instructor 4. Acute encephalopathy - stable at this time; 5. HTN - Hypotensive; NS 250ml Bolus via IV now. Cont. monitor 6. Hyperlipidemia - on statin 7. Hypothyroidism - on Thyroid med 8. Parkinson's disease - on med MAR reviewed Review of Systems - Review of Systems Constitutional: reports: see HPI EENTM: reports: see HPI Respiratory: reports: see HPI Cardiac (ROS): reports: see HPI ABD/GI: reports: see HPI : reports: see HPI <Andrea Felicianoan - Last Filed: 06/08/17 17:41> Cardiology Progress Note - Objective Vital Signs Temp Pulse Resp BP Pulse Ox 06/08/17 15:23 97.4 F L 75 19 108/52 L 98 06/08/17 14:27 72 16 96 06/08/17 11:04 97.7 F 79 22 H 85/40 L 97 06/08/17 08:41 83 06/08/17 08:33 83 06/08/17 08:00 97.7 F 79 22 H 97 06/08/17 07:30 98.1 F 72 20 102/45 L 100 Admit Weight 182 lb 15.739 oz Weight 177 lb 06/07/17 06/08/17 06/09/17 06:59 06:59 06:59 Intake Total 870 360 Output Total 1300 475 Balance -430 -475 360 - Labs Result Diagrams: 06/08/17 12:13 06/08/17 03:38 Troponin/CKMB Troponin I 0.063 ng/mL (< 0.028) H 06/07/17 22:22 - Assessment/Plan Pt. seen and eval. by me. I agree with the a/P by the [employer] PROGRAMMER REMOTE. Multiple medical issues. Generally ill pt. Continue supportive care. RRR, few basilar rales.
[2017-06-08] MEDS: Lisinopril 2.5 MG TAB PO SCH (08:41)
--- NOTE | 2017-06-08 08:41 | PDOC.PN ---
- Subjective Encounter Start Date: 06/08/17 Encounter Start Time: 08:39 Ms. Franco was seen today in follow-up of acute respiratory failure. She was moved to the [facility] overnight due to low oxygen saturations. She says she did not feel bad at the time, and says she feels fine now. - Objective MAR Reviewed: Yes Vital Signs & Weight: Vital Signs (12 hours) Temp Pulse Resp BP Pulse Ox 06/08/17 08:33 83 06/08/17 07:30 98.1 F 72 20 102/45 L 100 06/08/17 04:00 97.9 F 80 18 96/39 L 97 06/08/17 01:41 82 16 95 06/07/17 22:45 97.4 F L 84 22 H 80/42 L 100 06/07/17 20:55 98.4 F 84 20 87/49 L 94 L Weight Admit Weight 182 lb 15.739 oz Weight 177 lb I&O: 06/07/17 06/08/17 06/09/17 06:59 06:59 06:59 Intake Total 870 Output Total 1300 475 Balance -430 -475 Result Diagrams: 06/08/17 03:38 06/08/17 03:38 Phys Exam - Physical Examination HEENT: PERRLA + scattered rhonchi and rales Cardiovascular: RRR, no significant murmur, no rub Gastrointestinal: soft, non-tender, no distention, positive bowel sounds Musculoskeletal: edema present Dx/Plan (1) Acute respiratory failure with hypoxia Code(s): J96.01 - ACUTE RESPIRATORY FAILURE WITH HYPOXIA Status: Resolved (2) Acute diastolic heart failure Code(s): I50.31 - ACUTE DIASTOLIC (CONGESTIVE) HEART FAILURE Status: Acute Comment: resolving (3) Acute kidney failure Status: Acute (4) Atrial fibrillation with RVR Code(s): I48.91 - UNSPECIFIED ATRIAL FIBRILLATION Status: Acute Comment: rate controlled (5) Infection due to human metapneumovirus (hMPV) Code(s): B97.81 - HUMAN METAPNEUMOVIRUS THE CAUSE OF DISEASES CLASSD ELSWHR Status: Acute (6) Hypertension Code(s): I10 - ESSENTIAL (PRIMARY) HYPERTENSION Status: Chronic Qualifiers: Hypertension type: essential hypertension Qualified Code(s): I10 - Essential (primary) hypertension (7) Acute encephalopathy Code(s): G93.40 - ENCEPHALOPATHY, UNSPECIFIED Status: Resolved - Plan * Acute on chronic respiratory failure- improved- unclear what occurred last night to cause a lower oxygen saturation reading, but she is much better this morning, back to her baseline. Her chest X-ray is essentially unchanged * Pneumonia from Human Metapneumovirus- improving * AFIB- her heart rate is stable * Acute on chronic diastolic heart failure- stable * Disposition as per Cardiology
[2017-06-08] MEDS ORDERED: Lisinopril 2.5 MG TAB PO SCH (09:00)
--- NOTE | 2017-06-08 10:09 | PRG ---
DATE OF SERVICE: 06/08/2017 SERVICE: Pulmonary Medicine. INTERVAL HISTORY: Yesterday, the patient had a little bit of hypoxemia when she was on room air. Hailey bess was put back on nasal cannula and subsequently transitioned to the IMCU. Her blood pressures were also marginal prompting a liter of fluid. This morning, she is getting an additional half liter of f luid. She denies any current fevers, chills, nausea, vomiting or chest discomfort. She has been com pletely asymptomatic throughout this entire event. PHYSICAL EXAMINATION: VITAL SIGNS: Afebrile, pulse 72, blood pressure 102/45, respirations 20, saturation 100% on 2 liters nasal cannula. GENERAL: The patient is awake and alert in no apparent distress. LUNGS: Excellent air entry. Crackles are present bilaterally. HEART: Normal rate, regular. ABDOMEN: Soft, nontender, nondistended. Bowel sounds are positive. MUSCULOSKELETAL: No cyanosis or clubbing. There is no pitting in the bilateral lower extremities. NEUROLOGIC: Grossly nonfocal. LABORATORY DATA: Hemoglobin 8.6, WBC 13.6, platelets 272,000. PTT 119. Creatinine 1.11 and up tren ding, BUN 28. Basic metabolic profile and magnesium are unremarkable otherwise. Cortisol level is 3 .2, likely suppressed secondary to prednisone. Troponin 0.063 and down trending compared to prior. Respiratory virus panel was positive for human metapneumovirus. IMAGING: Chest x-ray demonstrates a right upper lobe infiltrate, increased interstitial and nodular opacifications throughout bilateral lung modi. Probable small bilateral pleural effusions are pres ent. ASSESSMENT: 1. Acute hypoxic respiratory failure. 2. Acute bronchitis secondary to human metapneumovirus. 3. Atrial fibrillation with rapid ventricular response, return to normal sinus rhythm. 4. Severe sepsis. 5. Delirium, resolved. 6. Anemia, new onset. PLAN: I will repeat a hemoglobin and we will type and cross the patient. We will watch for signs of overt bleeding. If we do not find any, we will need to look for hemolysis or other issues. Pulmona ry and Critical Care will continue to follow along. The patient will remain in the IMCU for the time being.
[2017-06-08 10:16] LABS: Hemoglobin 8.8 g/dL (12.0-16.0)
[2017-06-08 10:40] LABS: Eosinophils 1 % (0-10); Hemoglobin 8.9 g/dL (12.0-16.0); Lymphocytes 7 % (21-51); MDiff Complete? YES; Mean Corpuscular HGB CONC 31.6 g/dL (32.0-36.0); Mean Corpuscular Hemoglobin 29.9 pg (27.0-31.0); Mean Corpuscular Volume 94.5 fl (81.0-99.0); Mean Platelet Volume 7.9 fL (7.4-10.4); Monocytes 5 % (0-10); Neutrophil 86 % (42-75); Platelet Count 289 thou/uL (130-400); RBC Distribution Width 12.9 % (11.5-14.5); Reactive Lymphocytes 1 % (0-10); Red Blood Cell (RBC) Count 2.97 mill/uL (4.20-5.40); White Blood Cell (WBC) Count 16.5 thou/uL (4.8-10.8)
[2017-06-08] MEDS: Sodium Chloride 0.9% 500 ML IV SCH ×2 (12:21→19:02)
[2017-06-08 12:22] LABS: Hemoglobin 8.4 g/dL (12.0-16.0)
[2017-06-08] MEDS: Atorvastatin Calcium 20 MG TAB PO SCH (20:16)
[2017-06-09] MEDS: Levothyroxine Sodium 50 MCG TAB PO SCH (06:34)
[2017-06-09] MEDS: Furosemide 40 MG TAB PO SCH (06:35)
[2017-06-09] MEDS: guaiFENesin ER 600 MG TAB PO SCH ×2 (08:42→20:14)
[2017-06-09] MEDS: Citalopram 20 MG TAB PO SCH (08:42)
[2017-06-09] MEDS: Digoxin 0.125 MG TAB PO SCH (08:42)
[2017-06-09] MEDS: Carbidopa/Levodopa 10-100 mg Tablet PO SCH ×3 (08:42→20:14)
[2017-06-09] MEDS: Dicyclomine 10 MG CAP PO SCH ×2 (08:42→20:15)
[2017-06-09] MEDS: Aspirin 325 mg Enteric Coated Tablet PO SCH (08:42)
--- NOTE | 2017-06-09 09:48 | PDOC.PN ---
- Subjective Encounter Start Date: 06/09/17 Encounter Start Time: 09:46 Ms. Franco was seen today in follow-up She does not have any complaints. She denies chest pain or shortness of breath. She denies feeling dizzy or weak, except when she is up moving around. - Objective MAR Reviewed: Yes Vital Signs & Weight: Vital Signs (12 hours) Temp Pulse Resp BP Pulse Ox 06/09/17 09:30 88/40 L 06/09/17 08:42 76 06/09/17 08:00 88/38 L 06/09/17 07:00 97.9 F 76 22 H 102/50 L 96 06/09/17 06:48 69 16 93 L 06/09/17 04:00 97.7 F 67 18 91/42 L 94 L 06/09/17 00:27 66 16 100 06/09/17 00:00 98.3 F 66 18 121/58 L 94 L Weight Admit Weight 182 lb 15.739 oz Weight 174 lb 7 oz I&O: 06/08/17 06/09/17 06/10/17 06:59 06:59 06:59 Intake Total 1730 Output Total 475 900 Balance -475 830 Result Diagrams: 06/08/17 12:13 06/08/17 03:38 Phys Exam - Physical Examination HEENT: PERRLA + rhonchi bilaterally rales at the bases Cardiovascular: irregular 2/6 systolic murmur Gastrointestinal: soft, non-tender, positive bowel sounds Musculoskeletal: edema present trace non-pitting edema Neurological: non-focal, moves all 4 limbs Dx/Plan (1) Acute respiratory failure with hypoxia Code(s): J96.01 - ACUTE RESPIRATORY FAILURE WITH HYPOXIA Status: Resolved (2) Acute diastolic heart failure Code(s): I50.31 - ACUTE DIASTOLIC (CONGESTIVE) HEART FAILURE Status: Acute Comment: resolving (3) Acute kidney failure Status: Acute (4) Atrial fibrillation with RVR Code(s): I48.91 - UNSPECIFIED ATRIAL FIBRILLATION Status: Acute Comment: rate controlled (5) Infection due to human metapneumovirus (hMPV) Code(s): B97.81 - HUMAN METAPNEUMOVIRUS THE CAUSE OF DISEASES CLASSD ELSWHR Status: Acute (6) Hypertension Code(s): I10 - ESSENTIAL (PRIMARY) HYPERTENSION Status: Chronic Qualifiers: Hypertension type: essential hypertension Qualified Code(s): I10 - Essential (primary) hypertension (7) Acute encephalopathy Code(s): G93.40 - ENCEPHALOPATHY, UNSPECIFIED Status: Resolved - Plan * Acute Encephalopathy- resolved * Pneumonia from Human Metapneumovirus- slowly resolving * Hypotension- I suspect this may be in part from error from the [employer]- When I check her blood pressure is the room- in the right arm- ithe reading was 102/ 62 and in the left arm- 104/40. I check it electronically immediately afterward , and the reading was 88/40. She is completely asymptomatic, therefore I believe it may be error from the machine. * Acute on chronic diastolic heart failure- compensated- she is laying with her head flat, with no dyspnea * Anemia- ? etiology- stool for occult blood is negative * AFIB- her heart rate is stable * I suspect she can be moved out of the IMCU, and can again begin to move towards discharge planning
[2017-06-09] MEDS: Lisinopril 2.5 MG TAB PO SCH (10:14)
--- NOTE | 2017-06-09 12:13 | PRG ---
DATE OF SERVICE: 06/09/2017 SUBJECTIVE: The patient is doing well, had no acute complaints. PHYSICAL EXAMINATION: VITAL SIGNS: Temperature is 97.9, pulse 76, blood pressure 102/50. HEENT: Unremarkable. NECK: No JVD. CHEST: Clear without wheezing or rhonchi. CARDIAC: S1 and S2 regular. ABDOMEN: Soft. EXTREMITIES: No edema. ASSESSMENT: 1. Status post acute hypoxic respiratory failure. 2. Acute bronchitis. 3. Atrial fibrillation. 4. Resolved delirium. PLAN: I agree that the patient can be moved to the floor. Given her low blood pressure, I would adv ise stopping the lisinopril if okay with Cardiology. She is currently off antibiotic therapy as resp iratory status is stable.
--- NOTE | 2017-06-09 17:55 | PRG ---
DATE OF SERVICE: 06/09/2017 SUBJECTIVE: Ms. Franco is doing fine. No complaints. Blood pressure is stable. She has no chest pa in or pressure. PHYSICAL EXAMINATION: VITAL SIGNS: Blood pressure 111/43 and 122/65, pulse 70. LUNGS: Clear. CARDIAC: No new murmur, rub or gallop. ABDOMEN: Soft, nontender. EXTREMITIES: No edema. ASSESSMENT: 1. Congestive heart failure, diastolic, stable. 2. Atrial fibrillation with rapid rate, back in sinus rhythm. PLAN: Continue current medical regimen. Okay to go to telemetry.
[2017-06-09] MEDS: Atorvastatin Calcium 20 MG TAB PO SCH (20:14)
[2017-06-10] MEDS: Levothyroxine Sodium 50 MCG TAB PO SCH (05:49)
--- NOTE | 2017-06-10 08:48 | PDOC.PN ---
- Subjective Encounter Start Date: 06/10/17 Encounter Start Time: 08:46 Ms. Franco was seen for follow-up. She fowler not have any complaints . She denies shortness of breath. - Objective MAR Reviewed: Yes Vital Signs & Weight: Vital Signs (12 hours) Temp Pulse Resp BP BP Pulse Ox 06/10/17 07:17 77 16 100 06/10/17 07:10 98.3 F 76 20 96/43 L 100 06/10/17 04:00 98.4 F 77 22 H 117/54 L 96 06/10/17 00:38 97.6 F 76 21 H 115/58 L 98 06/09/17 23:38 74 16 100 Weight Admit Weight 182 lb 15.739 oz Weight 175 lb 8 oz I&O: 06/09/17 06/10/17 06/11/17 06:59 06:59 06:59 Intake Total 1730 300 Output Total 900 600 Balance 830 -300 Result Diagrams: 06/08/17 12:13 06/08/17 03:38 Phys Exam - Physical Examination HEENT: PERRLA Respiratory: no wheezing + rhonchi , rales at the bases Cardiovascular: RRR, no significant murmur, no rub Gastrointestinal: soft, non-tender, positive bowel sounds Musculoskeletal: no edema Dx/Plan (1) Acute respiratory failure with hypoxia Code(s): J96.01 - ACUTE RESPIRATORY FAILURE WITH HYPOXIA Status: Resolved (2) Acute diastolic heart failure Code(s): I50.31 - ACUTE DIASTOLIC (CONGESTIVE) HEART FAILURE Status: Acute Comment: resolving (3) Acute kidney failure Status: Acute (4) Atrial fibrillation with RVR Code(s): I48.91 - UNSPECIFIED ATRIAL FIBRILLATION Status: Acute Comment: rate controlled (5) Infection due to human metapneumovirus (hMPV) Code(s): B97.81 - HUMAN METAPNEUMOVIRUS THE CAUSE OF DISEASES CLASSD ELSWHR Status: Acute (6) Hypertension Code(s): I10 - ESSENTIAL (PRIMARY) HYPERTENSION Status: Chronic Qualifiers: Hypertension type: essential hypertension Qualified Code(s): I10 - Essential (primary) hypertension (7) Acute encephalopathy Code(s): G93.40 - ENCEPHALOPATHY, UNSPECIFIED Status: Resolved - Plan * Acute respiratory failure- improving * Pneumonia from Human Metapneumovirus- slowly improving * AFIB- her heart rate is stable * Hypotension- will hold Lisinopril for SBP less than 110 * Patient is asking to go home, and she has been clinically stable over the weekend, possibly home today or tomorrow..
--- NOTE | 2017-06-10 09:21 | PRG ---
DATE OF SERVICE: 06/10/2017 SUBJECTIVE: Ms. Franco is awake and alert, feels well today. No chest pain or pressure. OBJECTIVE: VITAL SIGNS: Blood pressure is low 96/43, pulse 76. LUNGS: Clear. CARDIAC: Normal S1, S2. ASSESSMENT: 1. Congestive heart failure, diastolic, stable. 2. History of atrial fibrillation. PLAN: Continue current medical regimen. Okay to go to telemetry.
[2017-06-10] MEDS: Dicyclomine 10 MG CAP PO SCH ×2 (09:41→20:55)
[2017-06-10] MEDS: Lisinopril 2.5 MG TAB PO SCH (09:41)
[2017-06-10] MEDS: Aspirin 325 mg Enteric Coated Tablet PO SCH (09:41)
[2017-06-10] MEDS: Carbidopa/Levodopa 10-100 mg Tablet PO SCH ×3 (09:41→20:55)
[2017-06-10] MEDS: Citalopram 20 MG TAB PO SCH (09:41)
[2017-06-10] MEDS: guaiFENesin ER 600 MG TAB PO SCH ×2 (09:41→20:55)
[2017-06-10] MEDS: Digoxin 0.125 MG TAB PO SCH (09:41)
[2017-06-10] MEDS: Furosemide 40 MG TAB PO SCH (09:42)
--- NOTE | 2017-06-10 12:41 | PRG ---
DATE OF SERVICE: 06/10/2017 SUBJECTIVE: The patient says she feels better. OBJECTIVE: VITAL SIGNS: Temperature 98.3, pulse 77, respirations 16, and O2 sat 100% on 2 liters. HEENT: Unremarkable. LUNGS: Clear. CARDIAC: S1 and S2, regular. ABDOMEN: Soft. EXTREMITIES: No edema. ASSESSMENT: 1. Stable pulmonary status. 2. Transient respiratory failure, which is resolved. 3. Atrial fibrillation. PLAN: We will try her off oxygen and see how she does.
[2017-06-10] MEDS: Atorvastatin Calcium 20 MG TAB PO SCH (20:55)
[2017-06-11] MEDS: Levothyroxine Sodium 50 MCG TAB PO SCH (06:07)
--- NOTE | 2017-06-11 07:56 | PDOC.PN ---
- Subjective Encounter Start Date: 06/11/17 Encounter Start Time: 07:54 Ms. Franco was seen today in follow-up. She does not have any complaints. She tried going without oxygen yesterday, but had to have it placed back. - Objective MAR Reviewed: Yes Vital Signs & Weight: Vital Signs (12 hours) Temp Pulse Resp BP BP Pulse Ox 06/11/17 07:51 98.5 F 71 12 98 06/11/17 06:05 98.3 F 74 20 101/49 L 95 06/11/17 03:56 97.7 F 77 17 88/45 L 97 06/11/17 02:37 96 06/10/17 23:52 97.4 F L 69 18 90/55 L 99 06/10/17 20:00 97.7 F 77 17 100/55 L 95 06/10/17 19:58 96 06/10/17 19:57 96 Weight Admit Weight 182 lb 15.739 oz Weight 173 lb 12.8 oz I&O: 06/10/17 06/11/17 06/12/17 06:59 06:59 06:59 Intake Total 300 250 Output Total 600 150 Balance -300 100 Result Diagrams: 06/08/17 12:13 06/08/17 03:38 Phys Exam - Physical Examination HEENT: PERRLA + rhonchi bilaterally, rales at the bases, but diminished from Cardiovascular: RRR, no significant murmur Gastrointestinal: soft, non-tender, positive bowel sounds Musculoskeletal: no edema Dx/Plan (1) Acute respiratory failure with hypoxia Code(s): J96.01 - ACUTE RESPIRATORY FAILURE WITH HYPOXIA Status: Resolved (2) Acute diastolic heart failure Code(s): I50.31 - ACUTE DIASTOLIC (CONGESTIVE) HEART FAILURE Status: Acute Comment: resolving (3) Acute kidney failure Status: Acute (4) Atrial fibrillation with RVR Code(s): I48.91 - UNSPECIFIED ATRIAL FIBRILLATION Status: Acute Comment: rate controlled (5) Infection due to human metapneumovirus (hMPV) Code(s): B97.81 - HUMAN METAPNEUMOVIRUS THE CAUSE OF DISEASES CLASSD ELSWHR Status: Acute (6) Hypertension Code(s): I10 - ESSENTIAL (PRIMARY) HYPERTENSION Status: Chronic Qualifiers: Hypertension type: essential hypertension Qualified Code(s): I10 - Essential (primary) hypertension (7) Acute encephalopathy Code(s): G93.40 - ENCEPHALOPATHY, UNSPECIFIED Status: Resolved - Plan * Acute on chronic diastolic heart failure- compensated * AFIB- her heart rate is controlled * Pneumonia due to Human Metapneumovirus- slowly improving * Hypotension- stable- will hold Lisinopril from blood pressures less than 110 * Hopefully home with Home health today.
[2017-06-11] MEDS: Aspirin 325 mg Enteric Coated Tablet PO SCH (08:41)
[2017-06-11] MEDS: guaiFENesin ER 600 MG TAB PO SCH ×2 (08:41→21:07)
[2017-06-11] MEDS: Carbidopa/Levodopa 10-100 mg Tablet PO SCH ×3 (08:41→21:08)
[2017-06-11] MEDS: Citalopram 20 MG TAB PO SCH (08:41)
[2017-06-11] MEDS: Furosemide 40 MG TAB PO SCH (08:41)
[2017-06-11] MEDS: Dicyclomine 10 MG CAP PO SCH ×2 (08:56→21:07)
[2017-06-11] MEDS: Digoxin 0.125 MG TAB PO SCH (08:57)
[2017-06-11] MEDS: Lisinopril 2.5 MG TAB PO SCH (08:57)
--- NOTE | 2017-06-11 10:24 | DIS ---
DATE OF ADMISSION: 05/30/2017 DATE OF DISCHARGE: 06/11/2017 PRIMARY CARE PHYSICIAN: Dr. Raymond. DISCHARGE DISPOSITION: Home with home health and home physical therapy. DISCHARGE DIAGNOSES: 1. Acute hypoxic respiratory failure secondary to pneumonia. 2. Community-acquired pneumonia with human metapneumovirus. 3. Acute on chronic diastolic heart failure. 4. Acute renal failure, resolved. 5. Caz-PY-dusikeikj myocardial infarction type 2. 6. Permanent atrial fibrillation. DISCHARGE MEDICATIONS: Include lisinopril 2.5 mg daily, but this will be held for systolic blood pre ssure less than 110. She will not be placed on an anticoagulation due to high risk for fall. She is to continue VESIcare 10 mg daily, ranitidine 150 mg daily, moxifloxacin eyedrops as directed, levoth yroxine 50 mcg daily, Lasix 40 mg daily, erythromycin base ointment for the eyes, digoxin 0.125 mg da ottoniel, Bentyl 10 mg daily, citalopram 20 mg daily, Sinemet 10/100 three times a day, atropine sulfate 2 mL drops q.p.m., atorvastatin 20 mg daily, and aspirin 81 mg a day. PROCEDURES DONE DURING ADMISSION: The patient had a renal ultrasound showing no evidence of hydronep hrosis in either kidney. The patient had lower extremity venous Dopplers showing no evidence of DVT. The patient had an echocardiogram in which the ejection fraction was estimated at 60%-65%. There i s probable diastolic dysfunction, but difficult to determine with atrial fibrillation, moderate to se magalys tricuspid regurgitation. CODE STATUS: FULL CODE. ALLERGIES: CODEINE and PENICILLINS. HOSPITAL COURSE: Ms. Franco is a very pleasant 86-year-old female who presented to the emergency room with acute hypoxic respiratory failure, which was eventually determined to be due to human metapneum ovirus. She was originally placed on IV antibiotics and IV steroids. The pneumonia was quite severe initially and that she had demand ischemia and had a type 2 NSTEMI and met criteria for sepsis. Her hospital course was complicated by an episode of acute metabolic encephalopathy, possibly due from t he infection and also possibly medication related. This resolved completely. She was also admitted with some degree of renal insufficiency as well, which improved. She also developed atrial fibrillat ion and she was seen by Cardiology in which the digoxin was added to help with rate control; however, due to her high risk for fall, it was felt that she would not be a good candidate for anticoagulatio n. She also had some volume overload with acute on chronic diastolic heart failure, likely exacerbat ed by the atrial fibrillation. She improved with diuresis and an ASIYA inhibitor was added. However, due to some episodes of hypotension, the ASIYA inhibitor had to be held and she will be discharged with the lisinopril, but to take only if her blood pressure is more than 110 systolic on the top. We off ered the patient chcf as she is quite weak after this episode; however, the patient was fa irly insistent about going home and therefore we will send her home with home health and home physica l therapy and she will also be requiring home oxygen as well likely as a result of the pneumonia and congestive heart failure.
--- NOTE | 2017-06-11 10:47 | PRG ---
DATE OF SERVICE: 06/11/2017 SERVICE: Pulmonary Medicine INTERVAL HISTORY: The patient is doing fine from a respiratory standpoint. She is breathing comfort ably. She is on 1 liter nasal cannula. She denies any chest pain, shortness of breath, fevers or ch ills. She continues to not get moving. PHYSICAL EXAMINATION: VITAL SIGNS: Afebrile, pulse 71, blood pressure 101/49, respirations 20, saturation 95% on 1 liter n raj cannula. GENERAL: The patient is awake, alert, no apparent distress. LUNGS: Decent air entry. Crackles remain. They are improving dramatically. HEART: Normal rate, regular. ABDOMEN: Soft, nontender, nondistended. Bowel sounds are positive. MUSCULOSKELETAL: No cyanosis or clubbing. There is no pitting in the bilateral lower extremities. NEUROLOGIC: Grossly nonfocal. ASSESSMENT: 1. Acute hypoxic respiratory failure. 2. Acute bronchitis secondary to human metapneumovirus. 3. Atrial fibrillation with rapid ventricular response, currently sinus rhythm. 4. Severe sepsis, resolved. 5. Anemia. PLAN: The patient is stable for transition out of the [facility]. Truth be told, all of her medical inte rventions have come to close. I am concerned that her weakness will prevent her from thriving in the home environment. We will continue making efforts on moving the patient while she remains in this l ocation. Pulmonary will continue to follow. Ultimately, she will need a repeat chest x-ray in 4-6 w eeks in the outpatient basis to make certain these infiltrates and changes have resolved.
--- NOTE | 2017-06-11 15:04 | PDOC.CTH ---
Cardiology Progress Note - Subjective The pt seen and examined. No overnight events. No cardiac complaints. She stated she is very tired. She got up to chair today. - Objective Vital Signs Temp Pulse Resp BP BP Pulse Ox 06/11/17 14:05 70 16 98 06/11/17 11:14 98.4 F 74 24 H 97 06/11/17 09:57 100 06/11/17 09:55 71 16 100 06/11/17 08:57 74 93/49 L 06/11/17 08:00 98.5 F 71 12 98 06/11/17 07:51 98.5 F 71 12 98 06/11/17 06:05 98.3 F 74 20 101/49 L 95 06/11/17 03:56 97.7 F 77 17 88/45 L 97 Admit Weight 182 lb 15.739 oz Weight 173 lb 12.8 oz 06/10/17 06/11/17 06/12/17 06:59 06:59 06:59 Intake Total 300 250 Output Total 600 150 Balance -300 100 - Physical Examination General/Neuro: alert & oriented x3 Neck: no JVD present Lungs: other: (diminished at bases) Heart: RRR Abdomen: soft Extremities: other: (No edemas) - Telemetry Telemetry Rhythm: SR 70s - Labs Result Diagrams: 06/08/17 12:13 06/08/17 03:38 Troponin/CKMB Troponin I 0.063 ng/mL (< 0.028) H 06/07/17 22:22 - Assessment/Plan 1. Afib with RVR - Remained SR from Afib on 06/05/17; On Digoxin 0.125mg PO daily and ASA 325mg daily. Not OAC at this moment due to high risk of fall. Consider diltiazem if the BP tolerates. 2. Acute on Chronic diastolic HF - Stable with Lasix 40mg PO daily; start Lisinopril 2.5mg daily from today. 3. Acute Resp. Failure - stable with 3LNC; managed by Manager Personnel Selection 4. Acute encephalopathy - stable at this time; 5. HTN - stable with current medication; Cont. to monitor 6. Hyperlipidemia - on statin 7. Hypothyroidism - on Thyroid med 8. Parkinson's disease - on med MAR reviewed * The pt will f/u with Dr Feliciano' office within 2-4 wks after she is discharged. Review of Systems - Review of Systems Constitutional: reports: weakness EENTM: reports: no symptoms reported Respiratory: reports: no symptoms reported Cardiac (ROS): reports: no symptoms reported ABD/GI: reports: no symptoms reported : reports: no symptoms reported
--- NOTE | 2017-06-11 16:19 | PDOC.EVN ---
Event Note - Event Note Event Note: Discharge was placed on hold, and a referral is being made for Long Term
[2017-06-11] MEDS: Atorvastatin Calcium 20 MG TAB PO SCH (21:07)
[2017-06-12] MEDS: Aluminum & Magnesium Hydroxide 60 ML, Lidocaine 2% Viscous Solution 30 ML, diphenhydrAM... SSW PRN ×4 (01:46→20:31)
[2017-06-12] MEDS: Levothyroxine Sodium 50 MCG TAB PO SCH (06:12)
[2017-06-12] MEDS: guaiFENesin ER 600 MG TAB PO SCH ×2 (08:09→20:30)
[2017-06-12] MEDS: Furosemide 40 MG TAB PO SCH (08:09)
[2017-06-12] MEDS: Aspirin 325 mg Enteric Coated Tablet PO SCH (08:09)
[2017-06-12] MEDS: Digoxin 0.125 MG TAB PO SCH (08:09)
[2017-06-12] MEDS: Dicyclomine 10 MG CAP PO SCH ×2 (08:10→20:30)
[2017-06-12] MEDS: Lisinopril 2.5 MG TAB PO SCH (08:10)
[2017-06-12] MEDS: Citalopram 20 MG TAB PO SCH (08:10)
[2017-06-12] MEDS: Carbidopa/Levodopa 10-100 mg Tablet PO SCH ×3 (08:10→20:30)
--- NOTE | 2017-06-12 09:00 | PDOC.CTH ---
<Hafsa Iglesias - Last Filed: 06/12/17 08:58> Cardiology Progress Note - Subjective The pt seen and examined. No overnight events. No cardiac complaints. She cont. feeling very weak and fatigue. Also complains of soreness in her mouth and at neck. - Objective Vital Signs Temp Pulse Resp BP BP Pulse Ox 06/12/17 08:10 72 123/55 L 06/12/17 08:09 73 06/12/17 08:05 72 18 99 06/12/17 07:42 98.5 F 69 18 109/53 L 100 06/12/17 06:00 98.3 F 73 18 101/45 L 98 06/12/17 03:25 100 06/12/17 00:15 72 18 100 06/12/17 00:00 98.2 F 71 20 94/48 L 97 Admit Weight 182 lb 15.739 oz Weight 171 lb 14.4 oz 06/11/17 06/12/17 06/13/17 06:59 06:59 06:59 Intake Total 250 150 Output Total 150 200 Balance 100 -50 - Physical Examination General/Neuro: alert & oriented x3 Neck: no JVD present Lungs: other: (diminished at bases) Heart: RRR Abdomen: soft Extremities: other: (No edema) - Telemetry Telemetry Rhythm: SR 80s - Labs Result Diagrams: 06/08/17 12:13 06/08/17 03:38 Troponin/CKMB Troponin I 0.063 ng/mL (< 0.028) H 06/07/17 22:22 - Assessment/Plan 1. Afib with RVR - Remained SR from Afib on 06/05/17; On Digoxin 0.125mg PO daily and ASA 325mg daily. Not OAC at this moment due to high risk of fall. Consider diltiazem if the BP tolerates. 2. Acute on Chronic diastolic HF - Stable with Lasix 40mg PO daily and Lisinopril 2.5mg daily. 3. Acute Resp. Failure - stable with 1LNC; managed by Medicare Nurse 4. Acute encephalopathy - stable at this time; 5. HTN - stable with current medication; Cont. to monitor 6. Hyperlipidemia - on statin 7. Hypothyroidism - on Thyroid med 8. Parkinson's disease - on med MAR reviewed * The pt will f/u with Dr Feliciano' office within 2-4 wks after she is discharged. * Plan to d/c to SNF. Review of Systems - Review of Systems Constitutional: reports: see HPI EENTM: reports: see HPI Respiratory: reports: see HPI Cardiac (ROS): reports: no symptoms reported ABD/GI: reports: no symptoms reported : reports: no symptoms reported Musculoskeletal: reports: no symptoms reported Skin: reports: no symptoms reported <Andrea Feliciano - Last Filed: 06/12/17 10:44> Cardiology Progress Note - Objective Vital Signs Temp Pulse Resp BP BP Pulse Ox 06/12/17 08:10 72 123/55 L 06/12/17 08:09 73 06/12/17 08:05 72 18 99 06/12/17 08:00 98.5 F 72 18 99 06/12/17 07:42 98.5 F 69 18 109/53 L 100 06/12/17 06:00 98.3 F 73 18 101/45 L 98 06/12/17 03:25 100 06/12/17 00:15 72 18 100 06/12/17 00:00 98.2 F 71 20 94/48 L 97 Admit Weight 182 lb 15.739 oz Weight 171 lb 14.4 oz 06/11/17 06/12/17 06/13/17 06:59 06:59 06:59 Intake Total 250 150 Output Total 150 200 Balance 100 -50 - Labs Result Diagrams: 06/08/17 12:13 06/08/17 03:38 Troponin/CKMB Troponin I 0.063 ng/mL (< 0.028) H 06/07/17 22:22 - Assessment/Plan pt. seen and eval. by me. I agree with the A/P by the FOOT MITER OPERATOR. Chest is clear anteriorly but posterior there are still bibasilar rales.
--- NOTE | 2017-06-12 10:03 | PRG ---
DATE OF SERVICE: 06/12/2017 SERVICE: Pulmonary Medicine. INTERVAL HISTORY: The patient is doing fine from a respiratory standpoint. She has been weaned down to room air. She demonstrates poor strength. She did work with physical therapy yesterday, which i s reassuring. Otherwise, there has been no new change to her condition. OBJECTIVE: VITAL SIGNS: Afebrile, pulse 72, blood pressure 123/55, respirations 18, saturation 100% on room air . GENERAL: The patient is awake, alert, in no apparent distress. LUNGS: Decent air entry. There is no prolonged expiratory phase, wheezing, rhonchi, or crackles pre sent. HEART: Normal rate, regular. ABDOMEN: Soft, nontender, nondistended. Bowel sounds are positive. MUSCULOSKELETAL: No cyanosis or clubbing. No pitting. NEUROLOGIC: Grossly nonfocal. ASSESSMENT: 1. Acute hypoxic respiratory failure, resolved. 2. Acute bronchitis secondary to human metapneumovirus. 3. Atrial fibrillation with rapid ventricular response, currently sinus rhythm. 4. Severe sepsis, resolved. 5. Anemia. PLAN: From a purely respiratory perspective, the patient is stable for transition out of the [facility]. I will continue to follow while she remains in this location. She will need a repeat chest x-ray in 4-6 weeks in the outpatient basis to verify resolution of these changes.
--- NOTE | 2017-06-12 13:58 | PDOC.PN ---
- Subjective Encounter Start Date: 06/12/17 Encounter Start Time: 09:20 Pt seen for followup re: physical deconditioning. Denies chest pain, fevers or shortness of breath. Reports generalized weakness. - Objective MAR Reviewed: Yes Vital Signs & Weight: Vital Signs (12 hours) Temp Pulse Resp BP BP Pulse Ox 06/12/17 12:00 98.3 F 74 19 95/43 L 100 06/12/17 08:10 72 123/55 L 06/12/17 08:09 73 06/12/17 08:05 72 18 99 06/12/17 08:00 98.5 F 72 18 99 06/12/17 07:42 98.5 F 69 18 109/53 L 100 06/12/17 06:00 98.3 F 73 18 101/45 L 98 06/12/17 03:25 100 Weight Admit Weight 182 lb 15.739 oz Weight 171 lb 14.4 oz I&O: 06/11/17 06/12/17 06/13/17 06:59 06:59 06:59 Intake Total 250 150 Output Total 150 200 Balance 100 -50 Result Diagrams: 06/08/17 12:13 06/08/17 03:38 EKG Reviewed by me: Yes (Tele: NSR) Phys Exam - Physical Examination Constitutional: NAD HEENT: moist MMs Neck: supple Respiratory: clear to auscultation bilateral Cardiovascular: RRR Gastrointestinal: soft Neurological: moves all 4 limbs Psychiatric: normal affect Dx/Plan (1) Physical deconditioning Code(s): R53.81 - OTHER MALAISE Status: Acute Comment: Awaiting swing bed (2) Acute diastolic heart failure Code(s): I50.31 - ACUTE DIASTOLIC (CONGESTIVE) HEART FAILURE Status: Acute Comment: Improved, continue diuretics (3) Infection due to human metapneumovirus (hMPV) Code(s): B97.81 - HUMAN METAPNEUMOVIRUS THE CAUSE OF DISEASES CLASSD ELSWHR Status: Acute Comment: Improved (4) GERD (gastroesophageal reflux disease) Code(s): K21.9 - GASTRO-ESOPHAGEAL REFLUX DISEASE WITHOUT ESOPHAGITIS Status: Chronic Qualifiers: Esophagitis presence: esophagitis presence not specified Qualified Code(s) : K21.9 - Gastro-esophageal reflux disease without esophagitis Comment: stable (5) Hypertension Code(s): I10 - ESSENTIAL (PRIMARY) HYPERTENSION Status: Chronic Qualifiers: Hypertension type: essential hypertension Qualified Code(s): I10 - Essential (primary) hypertension Comment: Monitor vital signs, titrate antihypertensives as needed (6) Acute respiratory failure with hypoxia Code(s): J96.01 - ACUTE RESPIRATORY FAILURE WITH HYPOXIA Status: Resolved - Plan * . Review of Systems - Review of Systems Constitutional: weakness. negative: fever, chills, sweats, malaise Respiratory: SOB with Excertion. negative: Cough, Shortness of Breath, Pleuritic Pain, Wheezing Cardiovascular: negative: chest pain, palpitations, orthopnea, paroxysmal nocturnal dyspnea, edema, light headedness - Medications/Allergies Allergies/Adverse Reactions: Allergies Allergy/AdvReac Type Severity Reaction Status Date / Time codeine Allergy Verified 01/03/15 16:26 Penicillins Allergy Verified 01/03/15 16:26 Medications: Current Medications Acetaminophen (Tylenol) 650 mg PO Q4H PRN PRN Reason: Headache/Fever or Pain Al Hydroxide/Mg Hydroxide (Maalox) 30 ml PO Q6H PRN PRN Reason: Heartburn or Indigestion Albuterol/Ipratropium (Duoneb) 3 ml NEB [id number] [facility] Last Admin: 06/12/17 08:05 Dose: 3 ml Aspirin (Ecotrin) 325 mg PO DAILY [facility] Last Admin: 06/12/17 08:09 Dose: 325 mg Atorvastatin Calcium (Lipitor) 20 mg PO HS [facility] Last Admin: 06/11/17 21:07 Dose: 20 mg Carbidopa/Levodopa (Sinemet 10/100) 1 tab PO TID [facility] Last Admin: 06/12/17 08:10 Dose: 1 tab Citalopram Hydrobromide (Celexa) 20 mg PO DAILY [facility] Last Admin: 06/12/17 08:10 Dose: 20 mg Al Hydroxide/Mg Hydroxide 60 ml/ Lidocaine HCl 30 ml/Diphenhydramine HCl 75 mg 0 ml SSW Q4H PRN PRN Reason: Mouth Irritation Last Admin: 06/12/17 08:18 Dose: 30 ml Dicyclomine HCl (Bentyl) 10 mg PO BID [facility] Last Admin: 06/12/17 08:10 Dose: 10 mg Digoxin (Lanoxin) 0.125 mg PO DAILY [facility] Last Admin: 06/12/17 08:09 Dose: 0.125 mg Furosemide (Lasix) 40 mg PO DAILY-AC [facility] Last Admin: 06/12/17 08:09 Dose: 40 mg Guaifenesin (Robitussin Sf) 200 mg PO Q4H PRN PRN Reason: Cough Last Admin: 06/07/17 10:24 Dose: 200 mg Guaifenesin (Mucinex) 600 mg PO Q12HR [facility] Last Admin: 06/12/17 08:09 Dose: 600 mg Haloperidol (Haldol) 2 mg PO Q12H PRN PRN Reason: .AGITATION Last Admin: 06/01/17 02:02 Dose: 2 mg Hydralazine HCl (Apresoline) 10 mg SLOW IVP Q4H PRN PRN Reason: Systolic BP > 180 Levothyroxine Sodium (Synthroid) 50 mcg PO 0600 [facility] Last Admin: 06/12/17 06:12 Dose: 50 mcg Lisinopril (Zestril) 2.5 mg PO DAILY [facility] Last Admin: 06/12/17 08:10 Dose: Not Given Loperamide HCl (Imodium) 2 mg PO PRN PRN PRN Reason: Diarrhea/Loose Stools Loratadine (Claritin) 10 mg PO DAILYPRN PRN PRN Reason: Sinus Symptoms Magnesium Hydroxide (Milk Of Magnesium) 30 ml PO DAILYPRN PRN PRN Reason: Constipation Mineral Oil/White Petrolatum (Eucerin Cream) 0 gm TOP BIDPRN PRN PRN Reason: Dry Skin Nitroglycerin (Nitrostat) 0.4 mg SL Q5MIN PRN PRN Reason: Chest Pain Ondansetron HCl (Zofran Odt) 4 mg PO Q6H PRN PRN Reason: Nausea/Vomiting Ondansetron HCl (Zofran) 4 mg IVP Q6H PRN PRN Reason: Nausea/Vomiting Phenol (Chloraseptic [place] 180 Ml Bot) 0 ml PO PRN PRN PRN Reason: Sore Throat Senna (Senokot) 2 tab PO HSPRN PRN PRN Reason: Constipation Sodium Chloride ([place] Nasal [place] 0.65%) 0 ml EA NARE QIDPRN PRN PRN Reason: Nasal Congestion Sodium Chloride (Flush - Normal Saline) 10 ml IVF Q12HR [facility] Last Admin: 06/12/17 10:03 Dose: Not Given Sodium Chloride (Flush - Normal Saline) 10 ml IVF PRN PRN PRN Reason: Saline Flush Zolpidem Tartrate (Ambien) 5 mg PO HSPRN PRN PRN Reason: Insomnia Last Admin: 06/03/17 20:20 Dose: 5 mg
[2017-06-12] MEDS: Atorvastatin Calcium 20 MG TAB PO SCH (20:30)
[2017-06-12] MEDS: Acetaminophen 325 MG TAB PO PRN (23:34)
[2017-06-13] MEDS: Aluminum & Magnesium Hydroxide 60 ML, Lidocaine 2% Viscous Solution 30 ML, diphenhydrAM... SSW PRN ×3 (05:26→20:13)
[2017-06-13] MEDS: Levothyroxine Sodium 50 MCG TAB PO SCH (05:27)
[2017-06-13] MEDS: Furosemide 40 MG TAB PO SCH (08:24)
[2017-06-13] MEDS: Carbidopa/Levodopa 10-100 mg Tablet PO SCH ×3 (08:24→20:13)
[2017-06-13] MEDS: Citalopram 20 MG TAB PO SCH (08:24)
[2017-06-13] MEDS: guaiFENesin ER 600 MG TAB PO SCH ×2 (08:24→20:13)
[2017-06-13] MEDS: Aspirin 325 mg Enteric Coated Tablet PO SCH (08:24)
[2017-06-13] MEDS: Dicyclomine 10 MG CAP PO SCH ×2 (08:28→20:13)
[2017-06-13] MEDS: Digoxin 0.125 MG TAB PO SCH (08:29)
[2017-06-13] MEDS: Lisinopril 2.5 MG TAB PO SCH (08:29)
--- NOTE | 2017-06-13 11:17 | PDOC.CTH ---
Cardiology Progress Note - Subjective The pt seen and examined. No overnight events. No cardiac complaints. She reported that she has not exercised yesterday. She sat up at bedside for breakfast without any difficulties. She cont. complaining of soreness in her mouth. - Objective Vital Signs Temp Pulse Resp BP Pulse Ox 06/13/17 08:45 99.4 F 77 18 06/13/17 08:15 99.4 F 77 18 93/46 L 91 L 06/13/17 07:43 76 18 06/13/17 04:37 98.7 F 72 16 104/52 L 92 L 06/12/17 23:22 75 20 90/54 L 93 L Admit Weight 182 lb 15.739 oz Weight 171 lb 11.2 oz 06/12/17 06/13/17 06/14/17 06:59 06:59 06:59 Intake Total 150 182 Output Total 200 225 Balance -50 -43 - Physical Examination General/Neuro: alert & oriented x3 Neck: no JVD present Lungs: other: (coarses and diminished at bases) Heart: RRR Abdomen: soft Extremities: other: (No edema) - Telemetry Telemetry Rhythm: SR70s - Labs Result Diagrams: 06/08/17 12:13 06/08/17 03:38 Troponin/CKMB Troponin I 0.063 ng/mL (< 0.028) H 06/07/17 22:22 - Assessment/Plan 1. Afib with RVR - Remained SR from Afib on 06/05/17; On Digoxin 0.125mg PO daily and ASA 325mg daily. Not OAC at this moment due to high risk of fall. Consider diltiazem if the BP tolerates. 2. Acute on Chronic diastolic HF - Stable with Lasix 40mg PO daily and Lisinopril 2.5mg daily. 3. Acute Resp. Failure - stable with 1LNC; managed by Jogger Operator 4. Acute encephalopathy - stable at this time; 5. HTN - stable with current medication; Cont. to monitor 6. Hyperlipidemia - on statin 7. Hypothyroidism - on Thyroid med 8. Parkinson's disease - on med MAR reviewed * The pt will f/u with Dr Feliciano' office within 2-4 wks after she is discharged from SNF. * Plan to d/c to SNF. Review of Systems - Review of Systems Constitutional: reports: weakness EENTM: reports: see HPI Respiratory: reports: no symptoms reported Cardiac (ROS): reports: no symptoms reported ABD/GI: reports: no symptoms reported : reports: no symptoms reported
--- NOTE | 2017-06-13 14:12 | PDOC.PN ---
- Subjective Encounter Start Date: 06/13/17 Encounter Start Time: 07:40 Pt seen for followup re: physical deconditioning. Denies chest pain, shortness of breath, fevers or chills. - Objective MAR Reviewed: Yes Vital Signs & Weight: Vital Signs (12 hours) Temp Pulse Resp BP Pulse Ox 06/13/17 13:38 72 15 06/13/17 12:50 98.7 F 74 16 88/47 L 96 06/13/17 08:45 99.4 F 77 18 06/13/17 08:15 99.4 F 77 18 93/46 L 91 L 06/13/17 07:43 76 18 06/13/17 04:37 98.7 F 72 16 104/52 L 92 L Weight Admit Weight 182 lb 15.739 oz Weight 171 lb 11.2 oz I&O: 06/12/17 06/13/17 06/14/17 06:59 06:59 06:59 Intake Total 150 182 Output Total 200 225 Balance -50 -43 Result Diagrams: 06/08/17 12:13 06/08/17 03:38 EKG Reviewed by me: Yes (Tele: NSR) Phys Exam - Physical Examination Constitutional: NAD HEENT: moist MMs Neck: supple Respiratory: clear to auscultation bilateral Cardiovascular: RRR Gastrointestinal: soft Neurological: moves all 4 limbs Psychiatric: normal affect Dx/Plan (1) Physical deconditioning Code(s): R53.81 - OTHER MALAISE Status: Acute Comment: Awaiting swing bed at [place] (2) Acute diastolic heart failure Code(s): I50.31 - ACUTE DIASTOLIC (CONGESTIVE) HEART FAILURE Status: Acute Comment: continue diuretics (3) Infection due to human metapneumovirus (hMPV) Code(s): B97.81 - HUMAN METAPNEUMOVIRUS THE CAUSE OF DISEASES CLASSD ELSWHR Status: Acute Comment: Improved (4) GERD (gastroesophageal reflux disease) Code(s): K21.9 - GASTRO-ESOPHAGEAL REFLUX DISEASE WITHOUT ESOPHAGITIS Status: Chronic Qualifiers: Esophagitis presence: esophagitis presence not specified Qualified Code(s) : K21.9 - Gastro-esophageal reflux disease without esophagitis Comment: stable (5) Hypertension Code(s): I10 - ESSENTIAL (PRIMARY) HYPERTENSION Status: Chronic Qualifiers: Hypertension type: essential hypertension Qualified Code(s): I10 - Essential (primary) hypertension Comment: titrate antihypertensives as needed (6) Acute respiratory failure with hypoxia Code(s): J96.01 - ACUTE RESPIRATORY FAILURE WITH HYPOXIA Status: Resolved - Plan * . Review of Systems - Medications/Allergies Allergies/Adverse Reactions: Allergies Allergy/AdvReac Type Severity Reaction Status Date / Time codeine Allergy Verified 01/03/15 16:26 Penicillins Allergy Verified 01/03/15 16:26 Medications: Current Medications Acetaminophen (Tylenol) 650 mg PO Q4H PRN PRN Reason: Headache/Fever or Pain Last Admin: 06/12/17 23:34 Dose: 650 mg Al Hydroxide/Mg Hydroxide (Maalox) 30 ml PO Q6H PRN PRN Reason: Heartburn or Indigestion Albuterol/Ipratropium (Duoneb) 3 ml NEB [id number] [facility] Last Admin: 06/13/17 13:38 Dose: 3 ml Aspirin (Ecotrin) 325 mg PO DAILY [facility] Last Admin: 06/13/17 08:24 Dose: 325 mg Atorvastatin Calcium (Lipitor) 20 mg PO HS [facility] Last Admin: 06/12/17 20:30 Dose: 20 mg Carbidopa/Levodopa (Sinemet 10/100) 1 tab PO TID [facility] Last Admin: 06/13/17 08:24 Dose: 1 tab Citalopram Hydrobromide (Celexa) 20 mg PO DAILY [facility] Last Admin: 06/13/17 08:24 Dose: 20 mg Al Hydroxide/Mg Hydroxide 60 ml/ Lidocaine HCl 30 ml/Diphenhydramine HCl 75 mg 0 ml SSW Q4H PRN PRN Reason: Mouth Irritation Last Admin: 06/13/17 05:26 Dose: 10 ml Dicyclomine HCl (Bentyl) 10 mg PO BID [facility] Last Admin: 06/13/17 08:28 Dose: 10 mg Digoxin (Lanoxin) 0.125 mg PO DAILY [facility] Last Admin: 06/13/17 08:29 Dose: 0.125 mg Furosemide (Lasix) 40 mg PO DAILY-AC [facility] Last Admin: 06/13/17 08:24 Dose: 40 mg Guaifenesin (Robitussin Sf) 200 mg PO Q4H PRN PRN Reason: Cough Last Admin: 06/07/17 10:24 Dose: 200 mg Guaifenesin (Mucinex) 600 mg PO Q12HR [facility] Last Admin: 06/13/17 08:24 Dose: 600 mg Haloperidol (Haldol) 2 mg PO Q12H PRN PRN Reason: .AGITATION Last Admin: 06/01/17 02:02 Dose: 2 mg Hydralazine HCl (Apresoline) 10 mg SLOW IVP Q4H PRN PRN Reason: Systolic BP > 180 Levothyroxine Sodium (Synthroid) 50 mcg PO 0600 [facility] Last Admin: 06/13/17 05:27 Dose: 50 mcg Lisinopril (Zestril) 2.5 mg PO DAILY [facility] Last Admin: 06/13/17 08:29 Dose: Not Given Loperamide HCl (Imodium) 2 mg PO PRN PRN PRN Reason: Diarrhea/Loose Stools Loratadine (Claritin) 10 mg PO DAILYPRN PRN PRN Reason: Sinus Symptoms Magnesium Hydroxide (Milk Of Magnesium) 30 ml PO DAILYPRN PRN PRN Reason: Constipation Mineral Oil/White Petrolatum (Eucerin Cream) 0 gm TOP BIDPRN PRN PRN Reason: Dry Skin Nitroglycerin (Nitrostat) 0.4 mg SL Q5MIN PRN PRN Reason: Chest Pain Ondansetron HCl (Zofran Odt) 4 mg PO Q6H PRN PRN Reason: Nausea/Vomiting Ondansetron HCl (Zofran) 4 mg IVP Q6H PRN PRN Reason: Nausea/Vomiting Phenol (Chloraseptic [place] 180 Ml Bot) 0 ml PO PRN PRN PRN Reason: Sore Throat Senna (Senokot) 2 tab PO HSPRN PRN PRN Reason: Constipation Sodium Chloride ([place] Nasal [place] 0.65%) 0 ml EA NARE QIDPRN PRN PRN Reason: Nasal Congestion Sodium Chloride (Flush - Normal Saline) 10 ml IVF Q12HR [facility] Last Admin: 06/13/17 08:29 Dose: 10 ml Sodium Chloride (Flush - Normal Saline) 10 ml IVF PRN PRN PRN Reason: Saline Flush Zolpidem Tartrate (Ambien) 5 mg PO HSPRN PRN PRN Reason: Insomnia Last Admin: 06/03/17 20:20 Dose: 5 mg
[2017-06-13] MEDS: Acetaminophen 325 MG TAB PO PRN ×2 (14:43→20:13)
[2017-06-13] MEDS ORDERED: Ascorbic Acid 500 mg Chewable Tablet PO SCH (15:15)
--- NOTE | 2017-06-13 15:58 | PRG ---
DATE OF SERVICE: 06/13/2017 SERVICE: Pulmonary Medicine. INTERVAL HISTORY: The patient is doing fine from a respiratory standpoint. This morning, her oxygen saturations were 84% on room air. As such, she was put on 2 liters nasal cannula. She denies any c hest pain, nausea, vomiting. She had no events overnight. OBJECTIVE: VITAL SIGNS: Afebrile with a T-max of 99.5, pulse 74, blood pressure 88/47, respirations 16, saturat ion 96% on 2 liters nasal cannula. GENERAL: The patient is awake and alert. No apparent distress. LUNGS: Decent air entry bilaterally. There is no prolonged expiratory phase or wheezing appreciated . HEART: Normal rate, regular. ABDOMEN: Soft, nontender, nondistended. Bowel sounds are positive. MUSCULOSKELETAL: No cyanosis or clubbing. There is no pitting in the bilateral lower extremities. NEUROLOGIC: Grossly nonfocal. ASSESSMENT: 1. Acute hypoxic respiratory failure, resolved. 2. Acute bronchitis secondary to human metapneumovirus. 3. Atrial fibrillation with rapid ventricular response, currently sinus rhythm. 4. Severe sepsis, resolved. 5. Anemia. 6. Aphthous ulcers, severe. PLAN: From a purely respiratory perspective, [facility] I will have her return to clinic in 4-6 weeks in the outpatient setting with a preclinic chest x- ray. I will continue to follow, intermittently during this hospital stay.
[2017-06-13] MEDS: Atorvastatin Calcium 20 MG TAB PO SCH (20:13)
[2017-06-14] MEDS: Aluminum & Magnesium Hydroxide 60 ML, Lidocaine 2% Viscous Solution 30 ML, diphenhydrAM... SSW PRN ×3 (03:52→14:15)
[2017-06-14] MEDS: Levothyroxine Sodium 50 MCG TAB PO SCH (06:07)
[2017-06-14] MEDS: Furosemide 40 MG TAB PO SCH (08:22)
[2017-06-14] MEDS: Citalopram 20 MG TAB PO SCH (08:22)
[2017-06-14] MEDS: guaiFENesin ER 600 MG TAB PO SCH (08:23)
[2017-06-14] MEDS: Digoxin 0.125 MG TAB PO SCH (08:23)
[2017-06-14] MEDS: Dicyclomine 10 MG CAP PO SCH (08:23)
[2017-06-14] MEDS: Acetaminophen 325 MG TAB PO PRN (08:24)
[2017-06-14] MEDS: Aspirin 325 mg Enteric Coated Tablet PO SCH (08:24)
[2017-06-14] MEDS: Lisinopril 2.5 MG TAB PO SCH (08:24)
[2017-06-14] MEDS: Carbidopa/Levodopa 10-100 mg Tablet PO SCH ×2 (08:25→15:15)
[2017-06-14] MEDS ORDERED: Ascorbic Acid 500 mg Chewable Tablet PO SCH (09:00)
--- NOTE | 2017-06-14 09:41 | PDOC.CTH ---
<Hafsa Iglesias - Last Filed: 06/14/17 09:39> Cardiology Progress Note - Subjective The pt seen and examined. No overnight events. No cardiac complaints. She stated she feels very weak. - Objective Vital Signs Temp Pulse Resp BP BP BP Pulse Ox 06/14/17 08:24 68 108/52 L 06/14/17 08:23 68 06/14/17 07:43 98.4 F 68 12 108/52 L 97 06/14/17 07:03 72 16 06/14/17 03:51 97.8 F 70 16 99/51 L 96 06/14/17 00:12 71 18 96 Admit Weight 182 lb 15.739 oz Weight 170 lb 4.8 oz 06/13/17 06/14/17 06/15/17 06:59 06:59 06:59 Intake Total 182 1268 Output Total 225 1040 Balance -43 228 - Physical Examination General/Neuro: alert & oriented x3 Neck: no JVD present Lungs: other: (coarses and diminished at bases) Heart: RRR Abdomen: soft Extremities: other: (No edema) - Telemetry Telemetry Rhythm: SR 70s - Labs Result Diagrams: 06/08/17 12:13 06/08/17 03:38 Troponin/CKMB Troponin I 0.063 ng/mL (< 0.028) H 06/07/17 22:22 - Assessment/Plan 1. Afib with RVR - Remained SR from Afib on 06/05/17; On Digoxin 0.125mg PO daily and ASA 325mg daily. Not OAC at this moment due to high risk of fall. Consider diltiazem if the BP tolerates. 2. Acute on Chronic diastolic HF - Stable with Lasix 40mg PO daily and Lisinopril 2.5mg daily. 3. Acute Resp. Failure - stable with 2LNC which was 1LNC; managed by Review Nurse 4. Acute encephalopathy - stable at this time; 5. HTN - stable with current medication; Cont. to monitor 6. Hyperlipidemia - on statin 7. Hypothyroidism - on Thyroid med 8. Parkinson's disease - on med MAR reviewed * The pt will f/u with Dr Feliciano' office within 2-4 wks after she is discharged from SNF. * Plan to d/c to SNF. Review of Systems - Review of Systems Constitutional: reports: weakness EENTM: reports: no symptoms reported Respiratory: reports: no symptoms reported Cardiac (ROS): reports: no symptoms reported ABD/GI: reports: no symptoms reported, poor appetite : reports: no symptoms reported <Andrea Feliciano - Last Filed: 06/14/17 16:44> Cardiology Progress Note - Objective Vital Signs Temp Pulse Pulse Pulse Resp BP BP 06/14/17 15:50 97.9 F 67 16 06/14/17 13:29 79 68 115/61 06/14/17 12:05 98.1 F 72 16 06/14/17 09:00 98.1 F 68 22 H 06/14/17 08:24 68 108/52 L 06/14/17 08:23 68 06/14/17 07:43 98.4 F 68 12 06/14/17 07:03 72 16 BP BP BP Pulse Ox Pulse Ox Pulse Ox Pulse Ox 06/14/17 15:50 113/58 L 95 06/14/17 13:29 119/57 L 90 L 88 L 98 06/14/17 12:05 101/51 L 98 06/14/17 09:00 97 06/14/17 08:24 06/14/17 08:23 06/14/17 07:43 108/52 L 97 06/14/17 07:03 Admit Weight 182 lb 15.739 oz Weight 170 lb 4.8 oz 06/13/17 06/14/17 06/15/17 06:59 06:59 06:59 Intake Total 182 1268 Output Total 225 1040 350 Balance -43 228 -350 - Labs Result Diagrams: 06/08/17 12:13 06/08/17 03:38 Troponin/CKMB Troponin I 0.063 ng/mL (< 0.028) H 06/07/17 22:22 - Assessment/Plan Pt. seen and eval. by me. I agree with the A/P by the PATENT AGENT. Pt. is scheduled for alf transfer.
[2017-06-14 13:58] VITALS: BMI 29.2
--- NOTE | 2017-06-14 14:19 | DIS ---
DATE OF ADMISSION: 05/30/2017 DATE OF DISCHARGE: 06/14/2017 PRIMARY CARE PROVIDER: Neptali Raymond M.D. DISCHARGE DIAGNOSES: 1. Acute hypoxic respiratory failure secondary to pneumonia. 2. Community-acquired pneumonia with human metapneumovirus. 3. Acute on chronic diastolic heart failure. 4. Acute renal failure, resolved. 5. Non-ST elevation myocardial infarction, type 2. 6. Chronic atrial fibrillation. HOSPITAL COURSE: Please refer to discharge summary dictated by Dr. Lopez on 06/11/2017. The vaishali wright was not discharged home with home health services that day. Instead, a referral was made for swing bed. She was awaiting insurance authorization and is being discharged to swing bed at [facility] on 06/14/2017. HOSPITAL COURSE: As described on discharge summary dictated by Dr. Lopez on 06/11/2017. DISCHARGE MEDICATIONS: Aspirin 81 mg daily, atorvastatin 20 mg daily, Sinemet 10/100 mg 3 times a da y, citalopram 20 mg daily, Bentyl 10 mg daily, digoxin 0.125 mg daily, Lasix 40 mg daily, levothyroxi ne 50 mcg daily, lisinopril 2.5 mg daily to be held for systolic blood pressure of less than 110, ran itidine 150 mg daily, and VESIcare 10 mg daily. CONSULTATIONS DURING THIS HOSPITALIZATION: Pulmonary and Critical Care Medicine, Dr. Contreras; Nephro logy, Dr. Lokesh Ricks; Cardiology, Dr. Rosalee Feliciano LABORATORY DATA: On 06/08/2017, Ms. Franco had hemoglobin 8.4, sodium 135, potassium 3.7, and creatin ine 1.11. On the day of discharge, she had a loose bowel movement early in the morning, but none after that. S tool samples could not be sent for testing. Many thanks for allowing me to participate in your patient's care. Please feel free to contact me wi th any questions or concerns. DISCHARGE DESTINATION: Swing bed at [facility]. TOTAL AMOUNT OF TIME SPENT COORDINATING THIS DISCHARGE: 33 minutes.
[2017-06-14 15:51] VITALS: BP 113/58; TEMP 97.9
--- NOTE | 2017-06-14 16:51 | PRG ---
DATE OF SERVICE: 06/14/2017 SERVICE: Pulmonary Medicine. INTERVAL HISTORY: The patient is doing fine from a respiratory standpoint. She denies any chest dis comfort, nausea, vomiting, fevers, or chills. Otherwise, she indicates feeling quite well. Strength is improving, albeit slowly. She indicates that she feels much improved today. PHYSICAL EXAMINATION: VITAL SIGNS: Afebrile, pulse 72, blood pressure 115/61, respirations 16, and saturation 98% on 2 lit ers nasal cannula. GENERAL: The patient is awake, alert, in no apparent distress. LUNGS: Decent air entry. Crackles are improving. No prolonged expiratory phase or wheezing is appr eciated. HEART: Normal rate, regular. ABDOMEN: Soft, nontender, nondistended. Bowel sounds are positive. MUSCULOSKELETAL: No cyanosis or clubbing. There is no pitting in the bilateral lower extremities. NEUROLOGIC: Grossly nonfocal. ASSESSMENT: 1. Acute hypoxic respiratory failure, resolving. 2. Acute bronchitis secondary to human metapneumovirus. 3. Atrial fibrillation with rapid ventricular response, currently sinus rhythm. 4. Severe sepsis, resolved. 6. Anemia. 7. Aphthous ulcers, severe. DISCUSSION AND PLAN: The patient is stable for transition out of the hospital from a purely respirat ory perspective. She will need to have a repeat chest x-ray in 4-6 weeks in the outpatient setting t o make certain her infiltrate has resolved Pulmonary Critical Care will continue to follow along if the patient remains in the hospital.
== END 2017-06-14 16:40 | disposition swing bed (61) | DRG 871 ==
LOC: ERS 12:25 → IMCU/EMU 17:00 → 2NO 06-04 19:45 → IMCU/EMU 06-07 22:54 → 2NO 06-12 16:44
PROVIDERS: ADMIT Internal Medicine; ATTEND Internal Medicine
DX: A41.9 Sepsis, unspecified organism (principal); J96.01 Acute respiratory failure with hypoxia; I21.A1 Myocardial infarction type 2; I50.33 Acute on chronic diastolic (congestive) heart failure; J12.3 Human metapneumovirus pneumonia; G93.41 Metabolic encephalopathy; N17.9 Acute kidney failure, unspecified; E87.2 Acidosis; I11.0 Hypertensive heart disease with heart failure; G20 Parkinson's disease; I48.2 Chronic atrial fibrillation; D64.9 Anemia, unspecified; R65.20 Severe sepsis without septic shock; F32.9 Major depressive disorder, single episode, unspecified; E78.5 Hyperlipidemia, unspecified; K21.9 Gastro-esophageal reflux disease without esophagitis; E03.9 Hypothyroidism, unspecified; F41.9 Anxiety disorder, unspecified; K12.0 Recurrent oral aphthae; I36.1 Nonrheumatic tricuspid (valve) insufficiency; K58.9 Irritable bowel syndrome, unspecified; Z88.5 Allergy status to narcotic agent; Z88.0 Allergy status to penicillin; Z79.82 Long term (current) use of aspirin; Z79.899 Other long term (current) drug therapy
CPT/HCPCS: 36415; 71045; 71046; 76770; 80048; 80053; 80061; 81001; 82088; 82274; 82533; 82570; 83010; 83605; 83615; 83735; 83880; 84100; 84300; 84484; 84550; 85014; 85018; 85025; 85046; 85049; 85060; 85730; 86850; 86900; 86901; 86922; 87324; 87449; 87633; 87798; 93005; 93010; 93306; 93798; 93970; 94640; A4216; G8978-GP-CI; G8978-GP-CJ; G8978-GP-CL; G8979-GP-CH; G8979-GP-CI; G8987-GO-CJ; G8987-GO-CK; G8988-GO-CI; J0692; J1160; J1644; J1650; J3475; J7050; J7506; J7620; P9047

== ENCOUNTER 2020-04-06 04:57 | Inpatient (IN) | payer MEDICARE, MEDICAID ==
[2020-04-06] MEDS ORDERED: Vancomycin 1 GM/200 ML BAG ONE (05:55)
[2020-04-06 07:27] LABS: Troponin I 0.042 ng/mL (< 0.028)
[2020-04-06 10:13] LABS: Troponin I 0.064 ng/mL (< 0.028)
[2020-04-06] MEDS ORDERED: Acetaminophen 650 MG Suppository PR PRN (10:26)
--- NOTE | 2020-04-06 10:39 | PDOC.HHP ---
Hospitalist AMY KNOX History of Present Illness: Ms. Franco is an 89-year-old female with past medical history of Parkinson's disease, diastolic heart failure with for preserved ejection fraction, pulmonary hypertension, hypothyroidism, hyperlipidemia, chronic respiratory failure who presents as a transfer from [facility] emergency room for shortness of breath. Patient reports over the past few days she has felt increasingly weak with malaise and subjective fevers. She reports she has had worsening shortness of breath and had to increase her home O2 from 2.5 L baseline up to 4 L. She also endorses a mild new cough. She denies any chest pain, abdominal pain. She denies nausea vomiting, but does report worsening diarrhea since a recent orthopedic surgery. She reports the diarrhea is foul-smelling, but non-bloody and no mucus that she is aware of. Initial vital signs in the emergency room 108/85, 66, 19, 98.2, 96% on 4 L nasal cannula. Patient initially 70% on room air. Initial troponin 0 0.042. Lactic acid 3.7, BNP 598. BUN/Cr 22/1.12, sodium 139, potassium 5.0. H/H 15.6/31.6. WBC 12.2. Chest x-ray showed left lower lobe infiltrate and on my review widened mediastinum with mass-effect of the trachea. This is stable from prior to x-ray imaging in December. Patient received vancomycin, Levaquin and 500 mL of normal saline in emergency room. Allergies/Adverse Reactions: Allergy/AdvReac Type Severity Reaction Status Date / Time codeine Allergy Verified 12/26/19 18:29 Penicillins Allergy Verified 12/26/19 18:29 Home Medications: Medication Instructions Recorded Confirmed Type Atorvastatin Calcium 20 mg PO HS 01/03/15 04/09/20 History Citalopram Hydrobromide 20 mg PO HS 01/03/15 04/09/20 History [Citalopram HBr] Dicyclomine [Bentyl] 10 mg PO BID 01/03/15 04/09/20 History Levothyroxine Sodium [Levoxyl] 50 mcg PO DAILY 01/03/15 04/09/20 History Aspirin [Ecotrin Low Strength] 81 mg PO DAILY 01/04/15 04/09/20 History Carbidopa/Levodopa [Sinemet] 10 - 100 mg PO TID 05/31/17 04/09/20 History Digoxin [Lanoxin] 0.125 mg PO DAILY #30 tab 07/04/17 04/09/20 Rx Furosemide [Lasix] 40 mg PO DAILY #30 tab 01/08/20 04/09/20 Rx Acetaminophen [Tylenol Regular 500 mg PO BID 04/07/20 04/09/20 History Strength] Polyethylene Glycol OPTH DROP 1 drop EA EYE PRN PRN 04/07/20 04/07/20 History [Systane Ophth Solution] Diazepam 5 mg PO DAILY 04/09/20 04/09/20 History Lisinopril [Zestril] 2.5 mg PO HS 04/09/20 04/09/20 History Past History: PMHx: Aortic stenosis severe Diastolic heart failure with preserved ejection fraction Pulmonary hypertension Parkinson's disease Hypothyroidism Hyperlipidemia PSHx: Hip replacement Knee surgery FHx: No pertinent family history Social: Denies tobacco, alcohol or drug use. and daughter are MDM. Hospitalist HPI ROS Constitutional: reports: fever, weakness, malaise. denies: chills, sweats, other Eyes: denies: pain, vision change, conjunctivae inflammation, eyelid inflammation, redness, other ENT: denies: ear pain, ear discharge, nose pain, nose discharge, nose congestion, mouth pain, mouth swelling, throat pain, throat swelling, other Respiratory: reports: cough, shortness of breath, SOB with excertion. denies: dry, hemoptysis, pleuritic pain, sputum, wheezing, other Cardiovascular: denies: chest pain, palpitations, orthopnea, paroxysmal noc. dyspnea, edema, light headedness, other Gastrointestinal: reports: diarrhea. denies: nausea, vomiting, abdominal pain, constipation, melena, hematochezia, other Genitourinary: denies: dysuria, frequency, incontinence, hematuria, retention, other Musculoskeletal: denies: neck pain, shoulder pain, arm pain, back pain, hand pain, leg pain, foot pain, other Skin: denies: rash, lesions, geovanna, bruising, other Neurological: denies: weakness, numbness, incoordination, change in speech, confusion, seizures, other Hospitalist Exam General Appearance: NAD, awake alert, ill appearing Eye: PERRL, anicteric sclera ENT: normocephalic atraumatic, no oropharyngeal lesions, moist mucosa Neck: supple, symmetric, no JVD, no thyromegaly, no lymphadenopathy, no carotid bruit Heart - other findings: Systolic ejection murmur, S3 gallop Respiratory: CTAB, no wheezes, no rales, no ronchi, normal chest expansion, no tachypnea, normal percussion Gastrointestinal: soft, non-tender, non-distended, normal bowel sounds, no palpable masses, no hepatomegaly, no splenomegaly, no bruit Extremities: no cyanosis, no clubbing, no edema Skin: normal turgor, no lesions, no rashes Neurological: cranial nerve grossly intact, normal sensation to touch, no weakness, no focal deficits, no new deficit Musculoskeletal: normal tone, normal strength, no muscle wasting Psychiatric: normal affect, normal behavior, A&O x 3 Hospitalist Results Result Diagrams: 04/11/20 04:21 04/11/20 04:21 Lab results: Laboratory Last Values Troponin I 0.064 ng/mL (< 0.028) H 04/06/20 09:31 Hospitalist H&P A/P Plan: Shortness of breath 89-year-old female with past medical history of severe aortic stenosis, severe pulmonary artery hypertension, Parkinson's disease, chronic respiratory failure presents with worsening shortness of breath. Patient is on 2.5 L oxygen nasal cannula at home finding increasing need for the past few days to 4 L. She also endorses malaise, subjective fevers. Chest x-ray shows widened mediastinum stable from prior imaging. Given significant mediastinal mass and midline mass- effect of trachea, will pursue CTA. Chest x-ray did also show a left lower lobe infiltrate. Patient's white blood cell count elevated to 12.2, lactic acid 3.7. Now requiring 4 L oxygen nasal cannula to maintain O2 saturation. Patient mildly hypothermic. Patient received Levaquin, vancomycin in emergency room. We will continue IV antibiotics. Plan Ceftriaxone, azithromycin Covid pending, flu pending Supplemental oxygen CTA chest Sepsis without septic shock Patient presented in sepsis without septic shock with suspected pulmonary source. Lactic acid elevated 3.7, WBC 12.2, hypothermic with increasing oxygen requirement. Patient received vancomycin and Levaquin as well as 500 L bolus in emergency room. We will continue IV antibiotics, follow blood cultures. Plan IV antibiotics, gentle IV fluids Follow blood cultures Trend lactic acid, WBC, fever curve Elevation in troponin Initial troponin mildly elevated at 0.042. Patient without chest pain. EKG from outside hospital shows submillimeter ST depressions in the inferior leads. No ST elevation. We will continue to trend troponin, monitor on telemetry and consult cardiology. Plan Trend troponin Telemetry monitoring ASA Magnesium, TSH Stat repeat EKG Cardiology consult Chronic respiratory failure History of chronic respiratory failure. Patient had recent hospitalization in December 2019 for acute CHF exacerbation and was sent home on 2.5 L O2. She was supposed to follow up with a numerical control operator as an outpatient, but has not been able to make her appointments due to recurrent hospitalizations. CXR showed what looks like chronic scarring and widened mediastinum that was stable from prior imaging in . Suspect multifactorial including pulmonary HTN, aortic stenosis and HFrEF all contributing. Will obtain CTA to further evaluate widened mediastinum and consider inpatient pulmonology consult. Plan -Supplemental O2 as above -CTA chest -Consider pulmonology consult Diarrhea Pt reports history of worsening diarrhea since an orthopedic surgery and course of antibiotics. Pt unsure as to timeline or how long ago this was. Does not an interval worsening of her diarrhea since her last hospital admission in January. Will send for C-diff and stool studies. Pt denies abdominal pain. No history of IBS/IBD that she is aware of. Plan -C-diff, stool studies -Enteric precautions Severe aortic stenosis Severe aortic stenosis seen on echocardiogram in November 2019. Patient has not had outpatient follow-up for this due to repeated hospitalizations. Records show she saw Dr. Feliciano previously during her admissions. Patient will need close outpatient follow up for this. Plan Cardiology consult -Close outpatient follow up Severe pulmonary artery hypertension History of severe pulmonary artery hypertension. Likely contributing to patient's chronic respiratory failure. Does not appear to be on medical therapy for this. Will consult cardiology for further recommendations. Plan Cardiology consult Heart failure with preserved ejection fraction History of HFrEF. Last echo November 2019 shows EF of 55 to 60%. Patient is on lisinopril, Lasix 40 mg daily, digoxin. Patient does not appear to be fluid overloaded at this time. Lower extremities with no edema. No effusions on chest x-ray. No appreciable JVD on exam. BNP 598 which is close to baseline. Prior admission BNP was elevated to over 1000. Will hold Lasix and lisinopril since BP is soft currently. Will resume if BP allows. Plan Hold lisinopril, Lasix secondary to blood pressure Cardiology consult, recs appreciated Atrial fibrillation Hx of a-fib on digoxin. I do not see any BB or CCB on patient's medication list likely dt severe . Suspect no AC since patient has history of recurrent falls especially given her Parkinson's diagnosis. Pt currently in NSR. Will continue home digoxin. Plan -Continue home digoxin -Telemetry monitoring Parkinson's disease History of Parkinson's disease. Continue home Sinemet. Hypertension Hold lisinopril secondary to blood pressure. Will resume if BP allows. Hyperlipidemia Continue home statin once dosage confirmed. Hypothyroidism Continue home levothyroxine, will check TSH. DVT prophylaxis- SQ heparin CODE STATUS: DNI. Discussed code status with patient. She consents to CPR and chemical means, but does not give consent to be intubated. Her MDM is her and daughter. Case discussed with attending physician, Dr. Dumont.
--- NOTE | 2020-04-06 11:05 | CT ---
CT PULMONARY ANGIOGRAM WITH IV CONTRAST AND 3D POSTPROCESSING: Date: 04/06/2020 HISTORY: Mediastinal mass, shortness of breath. FINDINGS: The pulmonary arterial vasculature is well opacified without filling defects to suggest pulmonary emb olism. There are vascular calcifications with ectasia of the thoracic aorta. No pericardial or right pleural effusions are seen. There is a tiny left pleural effusion with adjacent atelectatic change. T here are chronic parenchymal changes in the lung modi bilaterally. There is evidence of old granulo matous disease. No pneumothoraces or lobar consolidation identified. There are degenerative changes i n the spine. Upper abdominal tomograms demonstrate a cyst in the right kidney. There is a moderate si zed hiatal hernia. There are prominent mediastinal lymph nodes measuring up to 12.0 mm in the right p aratracheal region. Old compressed vertebral bodies in the thoracic spine. IMPRESSION: 1. No CT evidence of pulmonary embolism. 2. Moderate sized hiatal hernia. POS: MZA
[2020-04-06] MEDS ORDERED: Aspirin 325 MG TAB PO SCH (11:30)
[2020-04-06] MEDS ORDERED: cefTRIAXone\\ROCEPHIN 1 GM VIAL ONE (11:39)
[2020-04-06] MEDS ORDERED: Aspirin 325 MG TAB ONE (11:39)
[2020-04-06] MEDS ORDERED: Azithromycin 500 MG VIAL ONE (11:39)
[2020-04-06] MEDS: cefTRIAXone\\ROCEPHIN 1 GM in Sodium Chloride 0.9% 100 ML IVPB SCH (12:00)
[2020-04-06 12:15] LABS: CKMB 2.4 ng/mL (0-6.6)
[2020-04-06] MEDS ORDERED: Iopamidol-370 76% 500 ML 1 ML ONE (12:15)
[2020-04-06] MEDS: Azithromycin 500 MG in Sodium Chloride 0.9% 250 ML 250 ML IVPB SCH (12:52)
[2020-04-06] MEDS ORDERED: Albumin 25% 25 GM/100 ML BOT IVPB SCH (13:06)
[2020-04-06] MEDS: Heparin 5,000 UNITS/ML VIAL SC SCH ×2 (15:05→22:53)
[2020-04-06 15:28] LABS: Lactic Acid 1.1 mmol/L (0.5-2.2)
[2020-04-06] MEDS: Carbidopa/Levodopa 10-100 mg Tablet PO SCH ×2 (17:43→23:01)
--- NOTE | 2020-04-06 18:22 | CON ---
DATE OF CONSULTATION: HISTORY OF PRESENT ILLNESS: The patient is an unfortunate 89-year-old with history of congestive heart failure, who presents after she developed extreme weakness. The patient has a history of diastolic heart failure. She also has a history of Parkinson disease. The patient also has a history of atrial fibrillation. The patient was felt to be a poor candidate for anticoagulation. She was recently in the hospital in November with congestive heart failure. She was found to have significant aortic stenosis. The patient was in usual state of health when she states she had extreme exposure to the cold. She started coughing, fever, and became extremely weak and lightheaded. She also was markedly dyspneic. The patient denied having any chest discomfort. PAST MEDICAL HISTORY: 1. Congestive heart failure. 2. Aortic stenosis. 3. History of atrial fibrillation. 4. Hypertension. 5. Dyslipidemia. 6. Asthma. 7. Parkinson disease. PAST SURGICAL HISTORY: Appendectomy, hysterectomy, hip surgery, and knee surgery. SOCIAL HISTORY: Nonsmoker. ALLERGIES: CODEINE AND PENICILLIN. FAMILY HISTORY: No strong family history of coronary artery disease. MEDICATIONS: See nursing list. PHYSICAL EXAMINATION: GENERAL: Well-developed woman, in no acute distress. VITAL SIGNS: Blood pressure 100/60. NECK: No jugular venous distention. LUNGS: Clear to auscultation. HEART: Regular rate and rhythm. Normal S1 and S2 with a 3/6 systolic murmur. ABDOMEN: Nondistended. EXTREMITIES: Showed no edema. LABORATORY RESULTS: White blood cell count 12.2, hemoglobin 15.6, hematocrit 51.6, and her platelets are 91. Sodium was 139, potassium 5.0, chloride 102, bicarbonate 22, BUN 22, creatinine 1.12. Troponin was 0.064. BNP 598. IMPRESSION: 1. Hypothermia. 2. Possible pneumonia. 3. Congestive heart failure. 4. History of atrial fibrillation. 5. Aortic stenosis. 6. Parkinson disease. PLAN: This patient presented with hypothermia. She had significant aortic stenosis on a recent hospitalization. From a cardiac standpoint, I would hold the patient's lisinopril as she is treated for hypothermia. The patient is in warming blanket. We will follow this patient with you through her hospitalization. Job ID: [id number] [facility]
[2020-04-06] MEDS ORDERED: Magnesium 2 GM/50 ML 2 GM in Premix Bag 1 BAG IVPB SCH (20:30)
[2020-04-06] MEDS ORDERED: Sodium Chloride 0.9% 500 ML IV SCH (20:30)
[2020-04-06] MEDS ORDERED: Magnesium 2 GM/50 ML BAG (IN WATER) ONE (22:55)
[2020-04-06] MEDS: Atorvastatin Calcium 20 MG TAB PO SCH (23:07)
[2020-04-07] MEDS: Levothyroxine Sodium 50 MCG TAB PO SCH (06:22)
[2020-04-07 08:02] LABS: Anion Gap 15 mmol/L (10-20); BUN (Urea Nitrogen) 19 mg/dL (9.8-20.1); Calc. Creatinine Clearance 0 mL/min (70-130); Calcium 8.3 mg/dL (7.8-10.44); Carbon Dioxide 22 mmol/L (23-31); Chloride 108 mmol/L (98-107); Glucose 78 mg/dL (83-110); Potassium 4.7 mmol/L (3.5-5.1); Sodium 140 mmol/L (136-145)
[2020-04-07 08:10] LABS: #Basophils 0.1 thou/uL (0.0-0.2); #Eosinphils 0.5 thou/uL (0.0-0.7); #Lymphocytes 1.1 thou/uL (1.20-3.40); #Neutrophils 8.6 thou/uL (1.40-6.50); %Basophils 0.5 % (0.0-1.0); %Eosinophils 4.1 % (0.0-10.0); %Lymphocytes 10.1 % (21.0-51.0); %Monocytes 8.8 % (0.0-10.0); %Neutrophils 76.5 % (42.0-75.0); Hemoglobin 12.5 g/dL (12.0-16.0); Mean Corpuscular HGB CONC 33.3 g/dL (32.0-36.0); Mean Corpuscular Hemoglobin 33.1 pg (27.0-31.0); Mean Corpuscular Volume 99.2 fL (78.0-98.0); Mean Platelet Volume 8.5 fL (7.4-10.4); Platelet Count 203 thou/uL (130-400); RBC Distribution Width 12.3 % (11.5-14.5); Red Blood Cell (RBC) Count 3.77 mill/uL (4.20-5.40); White Blood Cell (WBC) Count 11.3 thou/uL (4.8-10.8)
[2020-04-07] MEDS ORDERED: Digoxin 0.125 MG TAB ONE (11:56)
[2020-04-07] MEDS ORDERED: Aspirin Chewable 81 MG TAB ONE (11:56)
[2020-04-07] MEDS: Heparin 5,000 UNITS/ML VIAL SC SCH ×3 (11:57→21:17)
[2020-04-07] MEDS: Digoxin 0.125 MG TAB PO SCH (12:19)
[2020-04-07] MEDS: Aspirin 81 mg Enteric Coated Tablet PO SCH (12:19)
[2020-04-07] MEDS: cefTRIAXone\\ROCEPHIN 1 GM in Sodium Chloride 0.9% 100 ML IVPB SCH (12:19)
[2020-04-07] MEDS: Carbidopa/Levodopa 10-100 mg Tablet PO SCH ×3 (12:19→21:18)
[2020-04-07] MEDS: Azithromycin 500 MG in Sodium Chloride 0.9% 250 ML 250 ML IVPB SCH (14:16)
--- NOTE | 2020-04-07 16:51 | PDOC.HOSPP ---
- Subjective Encounter Date: 04/07/20 Encounter Time: 16:49 Subjective: This patient was seen and evaluated today. This is a very pleasant 89-year-old who was admitted to the hospital with worsening shortness of breath. She does have significant medical history for congestive heart failure from diastolic dysfunction, she has severe aortic stenosis and has seen cardiology in the recent past, she has pulmonary artery hypertension. She reportedly had an increase in her O2 use and has some generalized weakness, she also has some low- grade fever and cough. There is some concern that she may have some pneumonia and she was promptly hospitalized for further treatment. I saw and evaluated he r while she was in a emergency room today. She is saturating above 95%. She is empirically on IV antibiotics and cardiology has been asked to evaluate her as well. The patient denied any chest pain. We will continue current management plan. His Covid test was negative. - Objective Vital Signs & Weight: Vital Signs (12 hours) Temp Pulse Resp BP Pulse Ox 04/07/20 14:40 97.5 F L 79 20 99/57 L 93 L 04/07/20 12:19 76 Weight Weight 163 lb 5.8 oz Result Diagrams: 04/07/20 07:56 04/07/20 07:28 Radiology Reviewed by me: Yes EKG Reviewed by me: Yes Hospitalist ROS - Review of Systems Respiratory: reports: shortness of breath Gastrointestinal: reports: nausea Neurological: reports: weakness - Medication Medications: Active Medications Generic Name Dose Route Start Last Admin Trade Name Freq PRN Reason Stop Dose Admin Aspirin 81 mg 04/07/20 09:00 04/07/20 12:19 Aspirin 81 Mg Enteric Coated Tablet PO 81 mg DAILY BEVERLY Administration Atorvastatin Calcium 20 mg 04/06/20 21:00 04/06/20 23:07 Atorvastatin Calcium 20 Mg Tab PO 20 mg HS BEVERLY Administration Carbidopa/Levodopa 1 tab 04/06/20 15:00 04/07/20 16:21 Carbidopa/Levodopa 10-100 Mg Tablet PO 1 tab TID BEVERLY Administration Digoxin 0.125 mg 04/07/20 09:00 04/07/20 12:19 Digoxin 0.125 Mg Tab PO 0.125 mg DAILY BEVERLY Administration Heparin Sodium (Porcine) 5,000 units 04/06/20 15:00 04/07/20 16:20 Heparin 5,000 Units/Ml Vial SC 5,000 units TID BEVERLY Administration Ceftriaxone Sodium 1 gm/ 100 mls @ 200 mls/hr 04/06/20 11:00 04/07/20 12:19 Sodium Chloride IVPB 100 mls 1100 BEVERLY Administration Azithromycin 500 mg/ Sodium 250 mls @ 250 mls/hr 04/06/20 12:00 04/07/20 14:16 Chloride IVPB 250 mls 1200 BEVERLY Administration Levothyroxine Sodium 50 mcg 04/07/20 06:00 04/07/20 06:22 Levothyroxine Sodium 50 Mcg Tab PO 50 mcg 0600 BEVERLY Administration Hospitalist Exam Vitals: Vital Signs (12 hours) Temp Pulse Resp BP Pulse Ox 04/07/20 14:40 97.5 F L 79 20 99/57 L 93 L 04/07/20 12:19 76 Weight Weight 163 lb 5.8 oz General Appearance: NAD, awake alert, ill appearing Eye: PERRL, anicteric sclera ENT: normocephalic atraumatic, no oropharyngeal lesions Neck: supple Heart: RRR, no murmur, no gallops, no rubs Respiratory: CTAB, no wheezes, no rales Gastrointestinal: soft, non-tender, non-distended, normal bowel sounds Neurological: cranial nerve grossly intact, normal sensation to touch Psychiatric: normal affect, normal behavior, A&O x 3 Hosp A/P (1) Acute and chronic respiratory failure with hypoxia Code(s): J96.21 - ACUTE AND CHRONIC RESPIRATORY FAILURE WITH HYPOXIA Status: Acute Plan: This was present on admission. Likely secondary to CHF exacerbation from diastolic dysfunction. There is also some concern for pulmonary source of an infection. We will continue O2 supplementation and wean down as tolerated. (2) Acute on chronic diastolic heart failure Code(s): I50.33 - ACUTE ON CHRONIC DIASTOLIC (CONGESTIVE) HEART FAILURE Status: Acute Plan: The patient is on mild diuresis. (3) Moderate to severe aortic stenosis Code(s): I35.0 - NONRHEUMATIC AORTIC (VALVE) STENOSIS Status: Chronic (4) Pneumonia Code(s): J18.9 - PNEUMONIA, UNSPECIFIED ORGANISM Status: Acute Plan: This is suspected on x-ray. She also has some URI symptoms. I agree with empiric antibiotics and hopefully follow-up on all the cultures. - Plan old records reviewed/req, PT/OT
[2020-04-07 18:55] LABS: Legionella Urinary Ag Negative (Negative); Strep pneumo Urine Ag NEGATIVE (NEGATIVE)
[2020-04-07] MEDS: Atorvastatin Calcium 20 MG TAB PO SCH (21:18)
[2020-04-08 05:00] LABS: #Eosinphils 0.5 thou/uL (0.0-0.7); #Lymphocytes 0.9 thou/uL (1.20-3.40); #Monocytes 1.2 thou/uL (0.11-0.59); #Neutrophils 10.6 thou/uL (1.40-6.50); %Basophils 0.2 % (0.0-1.0); %Eosinophils 3.9 % (0.0-10.0); %Monocytes 9.1 % (0.0-10.0); %Neutrophils 79.8 % (42.0-75.0); Hemoglobin 12.7 g/dL (12.0-16.0); Mean Corpuscular HGB CONC 30.8 g/dL (32.0-36.0); Mean Corpuscular Hemoglobin 30.2 pg (27.0-31.0); Mean Corpuscular Volume 98.2 fL (78.0-98.0); Mean Platelet Volume 9.1 fL (7.4-10.4); Platelet Count 224 thou/uL (130-400); RBC Distribution Width 12.5 % (11.5-14.5); Red Blood Cell (RBC) Count 4.21 mill/uL (4.20-5.40); White Blood Cell (WBC) Count 13.3 thou/uL (4.8-10.8)
[2020-04-08] MEDS: Levothyroxine Sodium 50 MCG TAB PO SCH ×2 (05:10→10:21)
[2020-04-08] MEDS: Acetaminophen 325 MG TAB PO PRN (05:11)
[2020-04-08 05:22] LABS: Anion Gap 12 mmol/L (10-20); BUN (Urea Nitrogen) 16 mg/dL (9.8-20.1); Calc. Creatinine Clearance 61 mL/min (70-130); Calcium 8.8 mg/dL (7.8-10.44); Carbon Dioxide 25 mmol/L (23-31); Chloride 109 mmol/L (98-107); Glucose 80 mg/dL (83-110); Potassium 4.5 mmol/L (3.5-5.1); Sodium 141 mmol/L (136-145)
[2020-04-08] MEDS: Furosemide 20 MG TAB PO SCH ×2 (10:21→15:25)
[2020-04-08] MEDS: Aspirin 81 mg Enteric Coated Tablet PO SCH (10:21)
[2020-04-08] MEDS: Digoxin 0.125 MG TAB PO SCH (10:21)
[2020-04-08] MEDS: Heparin 5,000 UNITS/ML VIAL SC SCH ×3 (10:22→19:57)
[2020-04-08] MEDS ORDERED: Azithromycin 500 MG VIAL ONE (11:21)
[2020-04-08] MEDS: cefTRIAXone\\ROCEPHIN 1 GM in Sodium Chloride 0.9% 100 ML IVPB SCH (11:46)
[2020-04-08] MEDS: Carbidopa/Levodopa 10-100 mg Tablet PO SCH ×3 (11:48→20:13)
[2020-04-08] MEDS: Azithromycin 500 MG in Sodium Chloride 0.9% 250 ML 250 ML IVPB SCH (12:39)
--- NOTE | 2020-04-08 15:07 | PDOC.HOSPP ---
- Subjective Encounter Date: 04/08/20 Encounter Time: 15:07 Subjective: This patient was seen and evaluated. She is an 89-year-old admitted with worsening shortness of breath. There is some concern that she may have pneumonia and she is on empiric IV antibiotics. However CT of the chest done did not show any significant evidence of pneumonia. She does take Lasix at home and I wonder if this is congestive heart failure. We have started her on low-dose of Lasix. I will check BNP in the morning. I attempted to call the patient's but the phone number appears to not be working. We will try again tomorrow. - Objective Vital Signs & Weight: Vital Signs (12 hours) Temp Pulse Resp BP Pulse Ox 04/08/20 11:30 98.3 F 78 16 116/61 95 04/08/20 10:21 86 04/08/20 08:00 95 04/08/20 07:50 98.5 F 86 16 139/77 95 04/08/20 04:40 98.3 F 75 16 123/64 94 L Weight Admit Weight 163 lb Weight 164 lb 3 oz I&O: 04/07/20 04/08/20 04/09/20 06:59 06:59 06:59 Intake Total 273 Output Total 250 Balance 23 Result Diagrams: 04/08/20 04:19 04/08/20 04:19 Radiology Reviewed by me: Yes EKG Reviewed by me: Yes Hospitalist ROS - Review of Systems Respiratory: reports: shortness of breath, SOB with excertion Gastrointestinal: reports: nausea Neurological: reports: weakness - Medication Medications: Active Medications Generic Name Dose Route Start Last Admin Trade Name Rafael PRN Reason Stop Dose Admin Acetaminophen 650 mg 04/06/20 10:26 04/08/20 05:11 Acetaminophen 325 Mg Tab PO 650 mg Q4H PRN Administration Headache/Fever/Mild Pain (1-3) Aspirin 81 mg 04/07/20 09:00 04/08/20 10:21 Aspirin 81 Mg Enteric Coated Tablet PO 81 mg DAILY BEVERLY Administration Atorvastatin Calcium 20 mg 04/06/20 21:00 04/07/20 21:18 Atorvastatin Calcium 20 Mg Tab PO 20 mg HS BEVERLY Administration Carbidopa/Levodopa 1 tab 04/06/20 15:00 04/08/20 11:48 Carbidopa/Levodopa 10-100 Mg Tablet PO 1 tab TID BEVERLY Administration Digoxin 0.125 mg 04/07/20 09:00 04/08/20 10:21 Digoxin 0.125 Mg Tab PO 0.125 mg DAILY BEVERLY Administration Furosemide 20 mg 04/08/20 09:00 04/08/20 10:21 Furosemide 20 Mg Tab PO 20 mg 0900,1400 BEVERLY Administration Heparin Sodium (Porcine) 5,000 units 04/06/20 15:00 04/08/20 10:22 Heparin 5,000 Units/Ml Vial SC 5,000 units TID BEVERLY Administration Ceftriaxone Sodium 1 gm/ 100 mls @ 200 mls/hr 04/06/20 11:00 04/08/20 11:46 Sodium Chloride IVPB 100 mls 1100 BEVERLY Administration Azithromycin 500 mg/ Sodium 250 mls @ 250 mls/hr 04/06/20 12:00 04/08/20 12:39 Chloride IVPB Not Given 1200 BEVERLY Levothyroxine Sodium 50 mcg 04/07/20 06:00 04/08/20 10:21 Levothyroxine Sodium 50 Mcg Tab PO 50 mcg 0600 BEVERLY Administration Sodium Chloride 10 ml 04/06/20 10:26 04/07/20 21:19 Flush - Normal Saline 10 Ml Syringe IVF 10 ml PRN PRN Administration Saline Flush Hospitalist Exam Vitals: Vital Signs (12 hours) Temp Pulse Resp BP Pulse Ox 04/08/20 11:30 98.3 F 78 16 116/61 95 04/08/20 10:21 86 04/08/20 08:00 95 04/08/20 07:50 98.5 F 86 16 139/77 95 04/08/20 04:40 98.3 F 75 16 123/64 94 L Weight Admit Weight 163 lb Weight 164 lb 3 oz General Appearance: NAD, awake alert Eye: PERRL, anicteric sclera ENT: normocephalic atraumatic Neck: supple, symmetric, no JVD Heart: RRR, no murmur, no gallops, no rubs, normal peripheral pulses Respiratory: CTAB, no wheezes, no rales, no ronchi Gastrointestinal: soft, non-tender, non-distended, normal bowel sounds Neurological: cranial nerve grossly intact, normal sensation to touch Psychiatric: normal affect, normal behavior, A&O x 3 Hosp A/P (1) Acute and chronic respiratory failure with hypoxia Code(s): J96.21 - ACUTE AND CHRONIC RESPIRATORY FAILURE WITH HYPOXIA Status: Acute (2) Acute on chronic diastolic heart failure Code(s): I50.33 - ACUTE ON CHRONIC DIASTOLIC (CONGESTIVE) HEART FAILURE Status: Acute (3) Moderate to severe aortic stenosis Code(s): I35.0 - NONRHEUMATIC AORTIC (VALVE) STENOSIS Status: Chronic (4) Pneumonia Code(s): J18.9 - PNEUMONIA, UNSPECIFIED ORGANISM Status: Acute Qualifiers: Pneumonia type: due to unspecified organism Laterality: bilateral Lung location: lower lobe of lung Qualified Code(s): J18.9 - Pneumonia, unspecified organism - Plan continue antibiotics, PT/OT, respiratory therapy, incentive spirometry #1. Acute on chronic respiratory failure with hypoxia. I suspect this may be secondary to heart failure exacerbation. There is some concern for pneumonia as well. Continue O2 supplementation and wean as tolerated. 2. Suspected pneumonia. I will keep her on empiric antibiotics for now pending full culture information being available. 3. Acute on chronic congestive heart failure with diastolic dysfunction. I will diurese her very mildly. Need to be mindful of her valvular disease as well. 4. Severe aortic stenosis. Appreciate cardiology's recommendations. Continue routine home medications. 5. Chronic atrial fibrillation. She was not felt to be a candidate for anticoagulation but she is on rate control medications.
[2020-04-08] MEDS: Atorvastatin Calcium 20 MG TAB PO SCH (20:13)
[2020-04-09 04:44] LABS: #Eosinphils 0.3 thou/uL (0.0-0.7); #Monocytes 1.4 thou/uL (0.11-0.59); %Basophils 0.3 % (0.0-1.0); %Eosinophils 2.2 % (0.0-10.0); %Lymphocytes 7.6 % (21.0-51.0); %Monocytes 11.1 % (0.0-10.0); %Neutrophils 78.7 % (42.0-75.0); Hemoglobin 12.9 g/dL (12.0-16.0); Mean Corpuscular HGB CONC 30.3 g/dL (32.0-36.0); Mean Corpuscular Hemoglobin 29.7 pg (27.0-31.0); Mean Corpuscular Volume 98.1 fL (78.0-98.0); Mean Platelet Volume 9.1 fL (7.4-10.4); Platelet Count 221 thou/uL (130-400); RBC Distribution Width 12.5 % (11.5-14.5); Red Blood Cell (RBC) Count 4.34 mill/uL (4.20-5.40); White Blood Cell (WBC) Count 12.7 thou/uL (4.8-10.8)
[2020-04-09 05:11] LABS: Anion Gap 13 mmol/L (10-20); BUN (Urea Nitrogen) 14 mg/dL (9.8-20.1); Calc. Creatinine Clearance 56 mL/min (70-130); Calcium 8.6 mg/dL (7.8-10.44); Carbon Dioxide 24 mmol/L (23-31); Chloride 104 mmol/L (98-107); Glucose 88 mg/dL (83-110); Magnesium 1.5 mg/dL (1.6-2.6); Potassium 4.4 mmol/L (3.5-5.1); Sodium 137 mmol/L (136-145)
[2020-04-09] MEDS: Aspirin 81 mg Enteric Coated Tablet PO SCH (09:21)
[2020-04-09] MEDS: Carbidopa/Levodopa 10-100 mg Tablet PO SCH ×3 (09:21→20:29)
[2020-04-09] MEDS: Furosemide 20 MG TAB PO SCH ×2 (09:21→15:32)
[2020-04-09] MEDS: Digoxin 0.125 MG TAB PO SCH (09:22)
[2020-04-09] MEDS: Heparin 5,000 UNITS/ML VIAL SC SCH ×3 (09:22→20:30)
[2020-04-09] MEDS ORDERED: Furosemide 20 MG/2 ML VIAL SLOW IVP SCH (10:15)
--- NOTE | 2020-04-09 15:56 | PDOC.HOSPP ---
- Subjective Encounter Date: 04/09/20 Encounter Time: 15:54 Subjective: Patient seen and evaluated. She is an 89-year-old woman admitted to the hospital with worsening shortness of breath and generalized fatigue. She is being treated for CHF exacerbation. Her most recent echo in the past 4 months showed a preserved ejection fraction around 50% and grade 1 diastolic dysfunction. She has moderate to severe aortic stenosis. She is gently being diuresed. We will continue this for now. I asked PT to help mobilize her. She will likely be a candidate for rehab placement. - Objective Vital Signs & Weight: Vital Signs (12 hours) Temp Pulse Pulse Pulse Resp BP BP 04/09/20 15:41 97.8 F 87 20 04/09/20 14:34 98.2 F 87 20 04/09/20 09:50 87 92 115/60 101/60 04/09/20 09:22 79 04/09/20 05:48 97.9 F 74 16 BP Pulse Ox Pulse Ox Pulse Ox 04/09/20 15:41 102/60 92 L 04/09/20 14:34 112/60 93 L 04/09/20 09:50 93 L 88 L 04/09/20 09:22 04/09/20 05:48 109/63 95 Weight Admit Weight 163 lb Weight 162 lb 5 oz I&O: 04/08/20 04/09/20 04/10/20 06:59 06:59 06:59 Intake Total 273 80 Output Total 250 900 Balance 23 -820 Result Diagrams: 04/09/20 04:17 04/09/20 04:17 Radiology Reviewed by me: Yes EKG Reviewed by me: Yes Hospitalist ROS - Review of Systems Respiratory: reports: shortness of breath, SOB with excertion Cardiovascular: reports: orthopnea - Medication Medications: Active Medications Generic Name Dose Route Start Last Admin Trade Name Freq PRN Reason Stop Dose Admin Acetaminophen 650 mg 04/06/20 10:26 04/08/20 05:11 Acetaminophen 325 Mg Tab PO 650 mg Q4H PRN Administration Headache/Fever/Mild Pain (1-3) Aspirin 81 mg 04/07/20 09:00 04/09/20 09:21 Aspirin 81 Mg Enteric Coated Tablet PO 81 mg DAILY [facility] Administration Atorvastatin Calcium 20 mg 04/06/20 21:00 04/08/20 20:13 Atorvastatin Calcium 20 Mg Tab PO 20 mg HS [facility] Administration Carbidopa/Levodopa 1 tab 04/06/20 15:00 04/09/20 15:32 Carbidopa/Levodopa 10-100 Mg Tablet PO 1 tab TID [facility] Administration Digoxin 0.125 mg 04/07/20 09:00 04/09/20 09:22 Digoxin 0.125 Mg Tab PO 0.125 mg DAILY [facility] Administration Furosemide 20 mg 04/08/20 09:00 04/09/20 15:32 Furosemide 20 Mg Tab PO 20 mg 0900,1400 [facility] Administration Heparin Sodium (Porcine) 5,000 units 04/06/20 15:00 04/09/20 15:32 Heparin 5,000 Units/Ml Vial SC 5,000 units TID [facility] Administration Levothyroxine Sodium 50 mcg 04/07/20 06:00 04/08/20 10:21 Levothyroxine Sodium 50 Mcg Tab PO 50 mcg 0600 [facility] Administration Sodium Chloride 10 ml 04/06/20 10:26 04/08/20 20:13 Flush - Normal Saline 10 Ml Syringe IVF 10 ml PRN PRN Administration Saline Flush Hospitalist Exam Vitals: Vital Signs (12 hours) Temp Pulse Pulse Pulse Resp BP BP 04/09/20 15:41 97.8 F 87 20 04/09/20 14:34 98.2 F 87 20 04/09/20 09:50 87 92 115/60 101/60 04/09/20 09:22 79 04/09/20 05:48 97.9 F 74 16 BP Pulse Ox Pulse Ox Pulse Ox 04/09/20 15:41 102/60 92 L 04/09/20 14:34 112/60 93 L 04/09/20 09:50 93 L 88 L 04/09/20 09:22 04/09/20 05:48 109/63 95 Weight Admit Weight 163 lb Weight 162 lb 5 oz General Appearance: NAD, awake alert Eye: PERRL, anicteric sclera ENT: normocephalic atraumatic, no oropharyngeal lesions Neck: supple, symmetric, no JVD, no thyromegaly Heart: RRR, no murmur, no gallops, no rubs, normal peripheral pulses Respiratory: CTAB, no wheezes, no rales, normal chest expansion Gastrointestinal: soft, non-tender, non-distended, normal bowel sounds Neurological: cranial nerve grossly intact, normal sensation to touch Musculoskeletal: normal tone, normal strength Psychiatric: normal affect, normal behavior, A&O x 3 Hosp A/P (1) Acute and chronic respiratory failure with hypoxia Code(s): J96.21 - ACUTE AND CHRONIC RESPIRATORY FAILURE WITH HYPOXIA Status: Acute (2) Acute on chronic diastolic heart failure Code(s): I50.33 - ACUTE ON CHRONIC DIASTOLIC (CONGESTIVE) HEART FAILURE Status: Acute (3) Moderate to severe aortic stenosis Code(s): I35.0 - NONRHEUMATIC AORTIC (VALVE) STENOSIS Status: Chronic (4) Pneumonia Code(s): J18.9 - PNEUMONIA, UNSPECIFIED ORGANISM Status: Acute Qualifiers: Pneumonia type: due to unspecified organism Laterality: bilateral Lung location: lower lobe of lung Qualified Code(s): J18.9 - Pneumonia, unspecified organism - Plan #1. Acute on chronic respiratory failure with hypoxia. I suspect this may be secondary to heart failure exacerbation. There is some concern for pneumonia as well. Continue O2 supplementation and wean as tolerated. 2. Suspected pneumonia. I will keep her on empiric antibiotics for now pending full culture information being available. 04/09/2020. Antibiotics are discontinued. I suspect this is all from heart failure exacerbation. 3. Acute on chronic congestive heart failure with diastolic dysfunction. I will diurese her very mildly. Need to be mindful of her valvular disease as well. 4. Severe aortic stenosis. Appreciate cardiology's recommendations. Continue routine home medications. 5. Chronic atrial fibrillation. She was not felt to be a candidate for anticoagulation but she is on rate control medications.
[2020-04-09] MEDS: Atorvastatin Calcium 20 MG TAB PO SCH (20:30)
[2020-04-09] MEDS: Acetaminophen 325 MG TAB PO PRN (22:18)
[2020-04-10] MEDS: Levothyroxine Sodium 50 MCG TAB PO SCH (05:20)
[2020-04-10 05:45] LABS: #Eosinphils 0.5 thou/uL (0.0-0.7); #Monocytes 1.6 thou/uL (0.11-0.59); #Neutrophils 9.8 thou/uL (1.40-6.50); %Basophils 0.4 % (0.0-1.0); %Eosinophils 3.9 % (0.0-10.0); %Lymphocytes 7.8 % (21.0-51.0); %Monocytes 12.2 % (0.0-10.0); %Neutrophils 75.8 % (42.0-75.0); Hemoglobin 13.2 g/dL (12.0-16.0); Mean Corpuscular HGB CONC 31.4 g/dL (32.0-36.0); Mean Corpuscular Volume 98.6 fL (78.0-98.0); Mean Platelet Volume 9.4 fL (7.4-10.4); Platelet Count 198 thou/uL (130-400); RBC Distribution Width 12.5 % (11.5-14.5); Red Blood Cell (RBC) Count 4.25 mill/uL (4.20-5.40)
[2020-04-10 06:08] LABS: Anion Gap 14 mmol/L (10-20); BUN (Urea Nitrogen) 19 mg/dL (9.8-20.1); Calc. Creatinine Clearance 53 mL/min (70-130); Calcium 8.7 mg/dL (7.8-10.44); Carbon Dioxide 27 mmol/L (23-31); Chloride 102 mmol/L (98-107); Glucose 86 mg/dL (83-110); Magnesium 1.5 mg/dL (1.6-2.6); Potassium 4.8 mmol/L (3.5-5.1); Sodium 138 mmol/L (136-145)
[2020-04-10] MEDS ORDERED: Magnesium 2 GM/50 ML 2 GM in Premix Bag 1 BAG IVPB SCH (08:30)
[2020-04-10] MEDS ORDERED: Furosemide 40 MG TAB PO SCH (09:00)
--- NOTE | 2020-04-10 09:04 | EKG ---
Test Reason : Blood Pressure : / mmHG Vent. Rate : 072 BPM Atrial Rate : 072 BPM P-R Int : 164 ms QRS Dur : 082 ms QT Int : 384 ms P-R-T Axes : 051 092 -61 degrees QTc Int : 420 ms Normal sinus rhythm Rightward axis Abnormal ECG Confirmed by JOSÉ RIZZO, DR. Nieves ([id number]) on 04/10/2020 9:04:22 AM Referred By: ATTENDING Confirmed By:DR. Ezequiel KUMAR MD
[2020-04-10] MEDS: Digoxin 0.125 MG TAB PO SCH (09:07)
[2020-04-10] MEDS: Aspirin 81 mg Enteric Coated Tablet PO SCH (09:08)
[2020-04-10] MEDS: Carbidopa/Levodopa 10-100 mg Tablet PO SCH ×3 (09:08→21:46)
[2020-04-10] MEDS: Furosemide 20 MG TAB PO SCH ×2 (09:09→15:03)
[2020-04-10] MEDS: Heparin 5,000 UNITS/ML VIAL SC SCH ×3 (09:09→21:47)
[2020-04-10] MEDS: Dicyclomine 10 MG CAP PO SCH ×2 (09:09→21:47)
[2020-04-10] MEDS: Diazepam 5 MG TAB PO SCH (09:17)
[2020-04-10] MEDS: Acetaminophen 325 MG TAB PO PRN ×3 (09:35→21:48)
[2020-04-10] MEDS ORDERED: Cyclobenzaprine 10 MG TAB PO PRN (12:39)
--- NOTE | 2020-04-10 12:43 | PDOC.HOSPP ---
- Subjective Encounter Date: 04/10/20 Encounter Time: 09:25 Subjective: Complaining of neck soreness and a mild dry cough otherwise no chest discomfort or shortness of breath. Her sats are in the low end 92% with 5 L oxygen by nasal cannula. She is normotensive. - Objective Vital Signs & Weight: Vital Signs (12 hours) Temp Pulse Resp BP BP Pulse Ox 04/10/20 09:07 68 04/10/20 08:00 97.4 F L 68 21 H 103/61 92 L 04/10/20 04:53 96 04/10/20 04:12 97.7 F 65 16 101/58 L 96 04/10/20 00:50 98/56 L Weight Admit Weight 163 lb Weight 161 lb 1.6 oz I&O: 04/09/20 04/10/20 04/11/20 06:59 06:59 06:59 Intake Total 80 120 Output Total 900 550 Balance -820 -430 Result Diagrams: 04/10/20 05:01 04/10/20 05:01 Hospitalist ROS - Medication Medications: Active Medications Generic Name Dose Route Start Last Admin Trade Name Freq PRN Reason Stop Dose Admin Acetaminophen 650 mg 04/06/20 10:26 04/10/20 09:35 Acetaminophen 325 Mg Tab PO 650 mg Q4H PRN Administration Headache/Fever/Mild Pain (1-3) Aspirin 81 mg 04/10/20 09:00 04/10/20 09:08 Aspirin 81 Mg Enteric Coated Tablet PO 81 mg DAILY [facility] Administration Atorvastatin Calcium 20 mg 04/06/20 21:00 04/09/20 20:30 Atorvastatin Calcium 20 Mg Tab PO 20 mg HS [facility] Administration Carbidopa/Levodopa 1 tab 04/06/20 15:00 04/10/20 09:08 Carbidopa/Levodopa 10-100 Mg Tablet PO 1 tab TID [facility] Administration Diazepam 5 mg 04/10/20 09:00 04/10/20 09:17 Diazepam 5 Mg Tab PO 5 mg DAILY [facility] Administration Dicyclomine HCl 10 mg 04/10/20 09:00 04/10/20 09:09 Dicyclomine 10 Mg Cap PO 10 mg BID [facility] Administration Digoxin 0.125 mg 04/07/20 09:00 04/10/20 09:07 Digoxin 0.125 Mg Tab PO 0.125 mg DAILY [facility] Administration Furosemide 20 mg 04/08/20 09:00 04/10/20 09:09 Furosemide 20 Mg Tab PO 20 mg 0900,1400 [facility] Administration Heparin Sodium (Porcine) 5,000 units 04/06/20 15:00 04/10/20 09:09 Heparin 5,000 Units/Ml Vial SC 5,000 units TID [facility] Administration Levothyroxine Sodium 50 mcg 04/07/20 06:00 04/10/20 05:20 Levothyroxine Sodium 50 Mcg Tab PO 50 mcg 0600 [facility] Administration Metoprolol Succinate 12.5 mg 04/09/20 21:00 04/10/20 09:08 Metoprolol Succinate Xl 25 Mg Tab PO 12.5 mg BID [facility] Administration Sodium Chloride 10 ml 04/06/20 10:26 04/08/20 20:13 Flush - Normal Saline 10 Ml Syringe IVF 10 ml PRN PRN Administration Saline Flush Hospitalist Exam Vitals: Vital Signs (12 hours) Temp Pulse Resp BP BP Pulse Ox 04/10/20 09:07 68 04/10/20 08:00 97.4 F L 68 21 H 103/61 92 L 04/10/20 04:53 96 04/10/20 04:12 97.7 F 65 16 101/58 L 96 04/10/20 00:50 98/56 L Weight Admit Weight 163 lb Weight 161 lb 1.6 oz General Appearance: NAD, awake alert Eye: PERRL ENT: normocephalic atraumatic Neck: supple Heart: RRR Respiratory: CTAB, normal chest expansion Gastrointestinal: soft, normal bowel sounds Extremities: 1+ LE edema Neurological: cranial nerve grossly intact, no focal deficits Psychiatric: normal affect, normal behavior, A&O x 3 Hosp A/P - Plan Acute and chronic respiratory failure with hypoxia Code(s): J96.21 - ACUTE AND CHRONIC RESPIRATORY FAILURE WITH HYPOXIA Status: Acute (2) Acute on chronic diastolic heart failure Code(s): I50.33 - ACUTE ON CHRONIC DIASTOLIC (CONGESTIVE) HEART FAILURE Status: Acute (3) Moderate to severe aortic stenosis Code(s): I35.0 - NONRHEUMATIC AORTIC (VALVE) STENOSIS Status: Chronic (4) Pneumonia Code(s): J18.9 - PNEUMONIA, UNSPECIFIED ORGANISM Status: Acute Qualifiers: Pneumonia type: due to unspecified organism Laterality: bilateral Lung location: lower lobe of lung Qualified Code(s): J18.9 - Pneumonia, unspecified organism - Plan #1. Acute on chronic respiratory failure with hypoxia. I suspect this may be secondary to heart failure exacerbation. There is some concern for pneumonia as well. Continue O2 supplementation and wean as tolerated. 2. Suspected pneumonia. I will keep her on empiric antibiotics for now pending full culture information being available. 04/09/2020. Antibiotics are discontinued. -suspect this is all from heart failure exacerbation. 3. Acute on chronic congestive heart failure with diastolic dysfunction. Low-dose diuresis - Need to be mindful of her valvular disease as well. 4. Severe aortic stenosis. Appreciate cardiology's recommendations. Continue routine home medications. 5. Chronic atrial fibrillation. She was not felt to be a candidate for anticoagulation but she is on rate control medications. C. difficile negative E. coli Shiga toxin in the stool study negative Her BNP level is around 1000 - done yesterday. Creatinine in the normal range. -Continue with IV diuresis.
--- NOTE | 2020-04-10 13:17 | PDOC.CPN ---
- Subjective Date: 04/10/20 Time: 12:50 Interval history: Chart and tele reviewed. Patient refused COVID test. - Objective Allergies/Adverse Reactions: Allergies Allergy/AdvReac Type Severity Reaction Status Date / Time codeine Allergy Verified 12/26/19 18:29 Penicillins Allergy Verified 12/26/19 18:29 Visit Medications: Current Medications Acetaminophen (Acetaminophen 325 Mg Tab) 650 mg PO Q4H PRN PRN Reason: Headache/Fever/Mild Pain (1-3) Last Admin: 04/10/20 09:35 Dose: 650 mg Documented by: Acetaminophen (Acetaminophen 650 Mg Suppository) 650 mg [place] Q4H PRN PRN Reason: Headache/Fever/Mild Pain (1-3) Aspirin (Aspirin 81 Mg Enteric Coated Tablet) 81 mg PO DAILY [facility] Last Admin: 04/10/20 09:08 Dose: 81 mg Documented by: Atorvastatin Calcium (Atorvastatin Calcium 20 Mg Tab) 20 mg PO HS [facility] Last Admin: 04/09/20 20:30 Dose: 20 mg Documented by: Carbidopa/Levodopa (Carbidopa/Levodopa 10-100 Mg Tablet) 1 tab PO TID [facility] Last Admin: 04/10/20 09:08 Dose: 1 tab Documented by: Cyclobenzaprine HCl (Cyclobenzaprine 10 Mg Tab) 5 mg PO TID PRN PRN Reason: Muscle Spasm Diazepam (Diazepam 5 Mg Tab) 5 mg PO DAILY [facility] Last Admin: 04/10/20 09:17 Dose: 5 mg Documented by: Dicyclomine HCl (Dicyclomine 10 Mg Cap) 10 mg PO BID [facility] Last Admin: 04/10/20 09:09 Dose: 10 mg Documented by: Digoxin (Digoxin 0.125 Mg Tab) 0.125 mg PO DAILY [facility] Last Admin: 04/10/20 09:07 Dose: 0.125 mg Documented by: Furosemide (Furosemide 20 Mg Tab) 20 mg PO 0900,1400 [facility] Last Admin: 04/10/20 09:09 Dose: 20 mg Documented by: Heparin Sodium (Porcine) (Heparin 5,000 Units/Ml Vial) 5,000 units SC TID [facility] Last Admin: 04/10/20 09:09 Dose: 5,000 units Documented by: Levothyroxine Sodium (Levothyroxine Sodium 50 Mcg Tab) 50 mcg PO 0600 [facility] Last Admin: 04/10/20 05:20 Dose: 50 mcg Documented by: Metoprolol Succinate (Metoprolol Succinate Xl 25 Mg Tab) 12.5 mg PO BID [facility] Last Admin: 04/10/20 09:08 Dose: 12.5 mg Documented by: Sodium Chloride (Flush - Normal Saline 10 Ml Syringe) 10 ml IVF PRN PRN PRN Reason: Saline Flush Last Admin: 04/08/20 20:13 Dose: 10 ml Documented by: Vital Signs & Weight: Vital Signs Temp Pulse Resp BP BP Pulse Ox 04/10/20 09:07 68 04/10/20 08:00 97.4 F L 68 21 H 103/61 92 L 04/10/20 04:53 96 04/10/20 04:12 97.7 F 65 16 101/58 L 96 Admit Weight 163 lb Weight 161 lb 1.6 oz - Labs Result Diagrams: 04/10/20 05:01 04/10/20 05:01 Troponin/CKMB CK-MB (CK-2) 2.4 ng/mL (0-6.6) 04/06/20 11:23 Troponin I 0.053 ng/mL (< 0.028) H 04/06/20 14:14 - Assessment/Plan Assessment/Plan: 1. Severe 2. Pulmonary HTN 3. Hypothermia 4. Acute on chronic diastolic CHF 5. COVID unknown as patient refused test 6. AF Continue gentle diuresis. No other changes
[2020-04-10] MEDS: Atorvastatin Calcium 20 MG TAB PO SCH (21:46)
[2020-04-11] MEDS ORDERED: Loperamide HCl 2 MG CAP PO SCH (04:15)
[2020-04-11 05:07] LABS: #Eosinphils 0.5 thou/uL (0.0-0.7); #Lymphocytes 0.8 thou/uL (1.20-3.40); #Monocytes 1.4 thou/uL (0.11-0.59); #Neutrophils 10.6 thou/uL (1.40-6.50); %Basophils 0.2 % (0.0-1.0); %Eosinophils 3.4 % (0.0-10.0); %Lymphocytes 5.7 % (21.0-51.0); %Monocytes 10.3 % (0.0-10.0); %Neutrophils 80.4 % (42.0-75.0); Hemoglobin 13.1 g/dL (12.0-16.0); Mean Corpuscular HGB CONC 31.6 g/dL (32.0-36.0); Mean Corpuscular Hemoglobin 31.2 pg (27.0-31.0); Mean Corpuscular Volume 98.7 fL (78.0-98.0); Mean Platelet Volume 10.3 fL (7.4-10.4); Platelet Count 212 thou/uL (130-400); RBC Distribution Width 12.4 % (11.5-14.5); White Blood Cell (WBC) Count 13.2 thou/uL (4.8-10.8)
[2020-04-11 05:36] LABS: Anion Gap 17 mmol/L (10-20); BUN (Urea Nitrogen) 23 mg/dL (9.8-20.1); Calc. Creatinine Clearance 50 mL/min (70-130); Calcium 8.6 mg/dL (7.8-10.44); Carbon Dioxide 23 mmol/L (23-31); Chloride 99 mmol/L (98-107); Glucose 79 mg/dL (83-110); Potassium 4.5 mmol/L (3.5-5.1); Sodium 134 mmol/L (136-145)
[2020-04-11] MEDS: Levothyroxine Sodium 50 MCG TAB PO SCH (05:50)
[2020-04-11] MEDS: Furosemide 20 MG TAB PO SCH ×2 (07:40→14:21)
[2020-04-11] MEDS: Carbidopa/Levodopa 10-100 mg Tablet PO SCH ×3 (07:40→22:22)
[2020-04-11] MEDS: Digoxin 0.125 MG TAB PO SCH (07:40)
[2020-04-11] MEDS: Dicyclomine 10 MG CAP PO SCH ×2 (07:41→22:22)
[2020-04-11] MEDS: Aspirin 81 mg Enteric Coated Tablet PO SCH (07:41)
[2020-04-11] MEDS: Diazepam 5 MG TAB PO SCH (07:41)
[2020-04-11] MEDS: Heparin 5,000 UNITS/ML VIAL SC SCH ×3 (07:45→22:22)
[2020-04-11] MEDS: Acetaminophen 325 MG TAB PO PRN ×2 (07:48→22:22)
[2020-04-11 08:59] LABS: Digoxin 1.54 ng/mL (0.8-2.0)
--- NOTE | 2020-04-11 12:36 | PDOC.HOSPP ---
- Subjective Encounter Date: 04/11/20 Encounter Time: 10:10 Subjective: Patient appears well. She has no complaints this morning. Satting 96% with 5 L oxygen by nasal cannula. Her blood pressure on the low side. Reduced the Toprol dose. - Objective Vital Signs & Weight: Vital Signs (12 hours) Temp Pulse Resp BP Pulse Ox 04/11/20 11:08 97.2 F L 65 20 87/51 L 96 04/11/20 08:00 99.1 F 70 17 115/69 93 L 04/11/20 07:40 70 04/11/20 03:15 97.8 F 69 12 100/58 L 93 L Weight Admit Weight 163 lb Weight 158 lb 8 oz I&O: 04/10/20 04/11/20 04/12/20 06:59 06:59 06:59 Intake Total 120 160 Output Total 550 300 Balance -430 -140 Result Diagrams: 04/11/20 04:21 04/11/20 04:21 Hospitalist ROS - Medication Medications: Active Medications Generic Name Dose Route Start Last Admin Trade Name Freq PRN Reason Stop Dose Admin Acetaminophen 650 mg 04/06/20 10:26 04/11/20 07:48 Acetaminophen 325 Mg Tab PO 650 mg Q4H PRN Administration Headache/Fever/Mild Pain (1-3) Aspirin 81 mg 04/10/20 09:00 04/11/20 07:41 Aspirin 81 Mg Enteric Coated Tablet PO 81 mg DAILY [facility] Administration Atorvastatin Calcium 20 mg 04/06/20 21:00 04/10/20 21:46 Atorvastatin Calcium 20 Mg Tab PO 20 mg HS [facility] Administration Carbidopa/Levodopa 1 tab 04/06/20 15:00 04/11/20 07:40 Carbidopa/Levodopa 10-100 Mg Tablet PO 1 tab TID [facility] Administration Diazepam 5 mg 04/10/20 09:00 04/11/20 07:41 Diazepam 5 Mg Tab PO 5 mg DAILY [facility] Administration Dicyclomine HCl 10 mg 04/10/20 09:00 04/11/20 07:41 Dicyclomine 10 Mg Cap PO 10 mg BID [facility] Administration Digoxin 0.125 mg 04/07/20 09:00 04/11/20 07:40 Digoxin 0.125 Mg Tab PO 0.125 mg DAILY [facility] Administration Furosemide 20 mg 04/08/20 09:00 04/11/20 07:40 Furosemide 20 Mg Tab PO 20 mg 0900,1400 [facility] Administration Heparin Sodium (Porcine) 5,000 units 04/06/20 15:00 04/11/20 07:45 Heparin 5,000 Units/Ml Vial SC 5,000 units TID [facility] Administration Levothyroxine Sodium 50 mcg 04/07/20 06:00 04/11/20 05:50 Levothyroxine Sodium 50 Mcg Tab PO 50 mcg 0600 [facility] Administration Metoprolol Succinate 12.5 mg 04/09/20 21:00 04/11/20 07:41 Metoprolol Succinate Xl 25 Mg Tab PO 12.5 mg BID [facility] Administration Sodium Chloride 10 ml 04/06/20 10:26 04/08/20 20:13 Flush - Normal Saline 10 Ml Syringe IVF 10 ml PRN PRN Administration Saline Flush Hospitalist Exam Vitals: Vital Signs (12 hours) Temp Pulse Resp BP Pulse Ox 04/11/20 11:08 97.2 F L 65 20 87/51 L 96 04/11/20 08:00 99.1 F 70 17 115/69 93 L 04/11/20 07:40 70 04/11/20 03:15 97.8 F 69 12 100/58 L 93 L Weight Admit Weight 163 lb Weight 158 lb 8 oz General Appearance: NAD, awake alert Eye: PERRL ENT: normocephalic atraumatic Neck: supple, no lymphadenopathy Heart: RRR, normal peripheral pulses Respiratory: CTAB, normal chest expansion Gastrointestinal: soft, normal bowel sounds Neurological: no focal deficits Psychiatric: A&O x 3 Hosp A/P - Plan Acute and chronic respiratory failure with hypoxia Code(s): J96.21 - ACUTE AND CHRONIC RESPIRATORY FAILURE WITH HYPOXIA Status: Acute (2) Acute on chronic diastolic heart failure Code(s): I50.33 - ACUTE ON CHRONIC DIASTOLIC (CONGESTIVE) HEART FAILURE Status: Acute (3) Moderate to severe aortic stenosis Code(s): I35.0 - NONRHEUMATIC AORTIC (VALVE) STENOSIS Status: Chronic (4) Pneumonia Code(s): J18.9 - PNEUMONIA, UNSPECIFIED ORGANISM Status: Acute Qualifiers: Pneumonia type: due to unspecified organism Laterality: bilateral Lung location: lower lobe of lung Qualified Code(s): J18.9 - Pneumonia, unspecified organism - Plan #1. Acute on chronic respiratory failure with hypoxia. I suspect this may be secondary to heart failure exacerbation. There is some concern for pneumonia as well. Continue O2 supplementation and wean as tolerated. 2. Suspected pneumonia. I will keep her on empiric antibiotics for now pending full culture information being available. 04/09/2020. Antibiotics are discontinued. -suspect this is all from heart failure exacerbation. 3. Acute on chronic congestive heart failure with diastolic dysfunction. Low-dose diuresis - Need to be mindful of her valvular disease as well. 4. Severe aortic stenosis. Appreciate cardiology's recommendations. Continue routine home medications. 5. Chronic atrial fibrillation. She was not felt to be a candidate for anticoagulation but she is on rate control medications. C. difficile negative E. coli Shiga toxin in the stool study negative Her BNP level is around 1000 - done yesterday. Creatinine in the normal range. Hypertension -- We will reduce her blood pressure medication Toprol as latest blood pressure is on the low side. -We will also change IV diuretics to p.o.
--- NOTE | 2020-04-11 15:14 | PDOC.CPN ---
- Subjective Date: 04/11/20 Time: 14:45 Interval history: Chart and tele reviewed. - Objective Allergies/Adverse Reactions: Allergies Allergy/AdvReac Type Severity Reaction Status Date / Time codeine Allergy Verified 12/26/19 18:29 Penicillins Allergy Verified 12/26/19 18:29 Visit Medications: Current Medications Acetaminophen (Acetaminophen 325 Mg Tab) 650 mg PO Q4H PRN PRN Reason: Headache/Fever/Mild Pain (1-3) Last Admin: 04/11/20 07:48 Dose: 650 mg Documented by: Acetaminophen (Acetaminophen 650 Mg Suppository) 650 mg [place] Q4H PRN PRN Reason: Headache/Fever/Mild Pain (1-3) Aspirin (Aspirin 81 Mg Enteric Coated Tablet) 81 mg PO DAILY [facility] Last Admin: 04/11/20 07:41 Dose: 81 mg Documented by: Atorvastatin Calcium (Atorvastatin Calcium 20 Mg Tab) 20 mg PO HS [facility] Last Admin: 04/10/20 21:46 Dose: 20 mg Documented by: Carbidopa/Levodopa (Carbidopa/Levodopa 10-100 Mg Tablet) 1 tab PO TID [facility] Last Admin: 04/11/20 14:34 Dose: 1 tab Documented by: Cyclobenzaprine HCl (Cyclobenzaprine 10 Mg Tab) 5 mg PO TID PRN PRN Reason: Muscle Spasm Diazepam (Diazepam 5 Mg Tab) 2.5 mg PO DAILY [facility] Dicyclomine HCl (Dicyclomine 10 Mg Cap) 10 mg PO BID [facility] Last Admin: 04/11/20 07:41 Dose: 10 mg Documented by: Digoxin (Digoxin 0.125 Mg Tab) 0.125 mg PO DAILY [facility] Last Admin: 04/11/20 07:40 Dose: 0.125 mg Documented by: Furosemide (Furosemide 20 Mg Tab) 20 mg PO 0900,1400 [facility] Last Admin: 04/11/20 14:21 Dose: Not Given Documented by: Heparin Sodium (Porcine) (Heparin 5,000 Units/Ml Vial) 5,000 units SC TID [facility] Last Admin: 04/11/20 14:34 Dose: 5,000 units Documented by: Levothyroxine Sodium (Levothyroxine Sodium 50 Mcg Tab) 50 mcg PO 0600 [facility] Last Admin: 04/11/20 05:50 Dose: 50 mcg Documented by: Metolazone (Metolazone 5 Mg Tab) 5 mg PO NOW [facility] Stop: 04/11/20 16:30 Metoprolol Succinate (Metoprolol Succinate Xl 25 Mg Tab) 12.5 mg PO DAILY [facility] Sodium Chloride (Flush - Normal Saline 10 Ml Syringe) 10 ml IVF PRN PRN PRN Reason: Saline Flush Last Admin: 04/08/20 20:13 Dose: 10 ml Documented by: Vital Signs & Weight: Vital Signs Temp Pulse Resp BP Pulse Ox 04/11/20 11:08 97.2 F L 65 20 87/51 L 96 04/11/20 08:00 99.1 F 70 17 115/69 93 L 04/11/20 07:40 70 04/11/20 03:15 97.8 F 69 12 100/58 L 93 L Admit Weight 163 lb Weight 158 lb 8 oz - Labs Result Diagrams: 04/11/20 04:21 04/11/20 04:21 Troponin/CKMB CK-MB (CK-2) 2.4 ng/mL (0-6.6) 04/06/20 11:23 Troponin I 0.053 ng/mL (< 0.028) H 04/06/20 14:14 - Assessment/Plan Assessment/Plan: 1. Severe 2. Pulmonary HTN 3. Hypothermia 4. Acute on chronic diastolic CHF 5. COVID unknown as patient refused test 6. AF Remains volume overloaded. Continue lasix. Will add one dose of zaroxolyn today and consider repeat in AM.
[2020-04-11] MEDS: Metolazone 5 MG TAB PO SCH ×2 (17:17→18:58)
[2020-04-11] MEDS: Atorvastatin Calcium 20 MG TAB PO SCH (22:21)
[2020-04-12] MEDS: Levothyroxine Sodium 50 MCG TAB PO SCH (04:19)
[2020-04-12 05:07] LABS: Hemoglobin 12.2 g/dL (12.0-16.0); Mean Corpuscular HGB CONC 32.4 g/dL (32.0-36.0); Mean Corpuscular Hemoglobin 31.6 pg (27.0-31.0); Mean Corpuscular Volume 97.5 fL (78.0-98.0); Mean Platelet Volume 9.8 fL (7.4-10.4); Platelet Count 232 thou/uL (130-400); RBC Distribution Width 12.2 % (11.5-14.5); Red Blood Cell (RBC) Count 3.86 mill/uL (4.20-5.40); White Blood Cell (WBC) Count 8.6 thou/uL (4.8-10.8)
[2020-04-12 05:21] LABS: Anion Gap 12 mmol/L (10-20); BUN (Urea Nitrogen) 25 mg/dL (9.8-20.1); Calc. Creatinine Clearance 51 mL/min (70-130); Calcium 8.4 mg/dL (7.8-10.44); Carbon Dioxide 26 mmol/L (23-31); Chloride 101 mmol/L (98-107); Glucose 78 mg/dL (83-110); Potassium 4.8 mmol/L (3.5-5.1); Sodium 134 mmol/L (136-145)
[2020-04-12 05:26] LABS: Eosinophils 7 % (0-10); Lymphocytes 7 % (21-51); MDiff Complete? YES; Monocytes 7 % (0-10); Neutrophil 78 % (42-75); Platelet Morphology Comment Appears Adequate; Reactive Lymphocytes 1 % (0-10)
--- NOTE | 2020-04-12 08:39 | PDOC.HOSPP ---
- Subjective Encounter Date: 04/12/20 Encounter Time: 09:30 Subjective: Mrs. Franco stated that she was able to sleep overnight without complication. She denies nausea, headache, vomiting, chest pain, SOB. She noted that she has had loose stools. She is able to drink and eat, but with little appetite. She complained of neck pain likely due to positioning as well as BLE swelling. - Objective Vital Signs & Weight: Vital Signs (12 hours) Temp Pulse Resp BP BP Pulse Ox 04/12/20 08:00 97.6 F 60 20 106/57 L 96 04/12/20 03:09 93 L 04/12/20 03:00 97.7 F 62 22 H 102/59 L 96 04/11/20 23:10 97.5 F L 66 24 H 84/49 L 93 L Weight Admit Weight 163 lb Weight 163 lb I&O: 04/11/20 04/12/20 04/13/20 06:59 06:59 06:59 Intake Total 160 Output Total 300 500 Balance -140 -500 Result Diagrams: 04/12/20 04:34 04/12/20 04:34 Hospitalist ROS - Medication Medications: Active Medications Generic Name Dose Route Start Last Admin Trade Name Freq PRN Reason Stop Dose Admin Acetaminophen 650 mg 04/06/20 10:26 04/11/20 22:22 Acetaminophen 325 Mg Tab PO 650 mg Q4H PRN Administration Headache/Fever/Mild Pain (1-3) Aspirin 81 mg 04/10/20 09:00 04/11/20 07:41 Aspirin 81 Mg Enteric Coated Tablet PO 81 mg DAILY [facility] Administration Atorvastatin Calcium 20 mg 04/06/20 21:00 04/11/20 22:21 Atorvastatin Calcium 20 Mg Tab PO 20 mg HS [facility] Administration Carbidopa/Levodopa 1 tab 04/06/20 15:00 04/11/20 22:22 Carbidopa/Levodopa 10-100 Mg Tablet PO 1 tab TID [facility] Administration Dicyclomine HCl 10 mg 04/10/20 09:00 04/11/20 22:22 Dicyclomine 10 Mg Cap PO 10 mg BID [facility] Administration Digoxin 0.125 mg 04/07/20 09:00 04/11/20 07:40 Digoxin 0.125 Mg Tab PO 0.125 mg DAILY [facility] Administration Furosemide 20 mg 04/11/20 14:00 04/11/20 14:21 Furosemide 20 Mg Tab PO Not Given 0900,1400 [facility] Heparin Sodium (Porcine) 5,000 units 04/06/20 15:00 04/11/20 22:22 Heparin 5,000 Units/Ml Vial SC 5,000 units TID [facility] Administration Levothyroxine Sodium 50 mcg 04/07/20 06:00 04/12/20 04:19 Levothyroxine Sodium 50 Mcg Tab PO 50 mcg 0600 [facility] Administration Sodium Chloride 10 ml 04/06/20 10:26 04/08/20 20:13 Flush - Normal Saline 10 Ml Syringe IVF 10 ml PRN PRN Administration Saline Flush Hospitalist Exam Vitals: Vital Signs (12 hours) Temp Pulse Resp BP BP Pulse Ox 04/12/20 08:00 97.6 F 60 20 106/57 L 96 04/12/20 03:09 93 L 04/12/20 03:00 97.7 F 62 22 H 102/59 L 96 04/11/20 23:10 97.5 F L 66 24 H 84/49 L 93 L Weight Admit Weight 163 lb Weight 163 lb General Appearance: NAD, awake alert Eye: PERRL, anicteric sclera ENT: normocephalic atraumatic Respiratory: CTAB, normal chest expansion Gastrointestinal: soft, normal bowel sounds Extremities: 1+ LE edema Extremities - other findings: Chronic venous stasis Neurological: cranial nerve grossly intact, no new deficit Musculoskeletal: generalized weakness Psychiatric: A&O x 3 Hosp A/P - Plan Acute and chronic respiratory failure with hypoxia Code(s): J96.21 - ACUTE AND CHRONIC RESPIRATORY FAILURE WITH HYPOXIA Status: Acute (2) Acute on chronic diastolic heart failure Code(s): I50.33 - ACUTE ON CHRONIC DIASTOLIC (CONGESTIVE) HEART FAILURE Status: Acute (3) Moderate to severe aortic stenosis Code(s): I35.0 - NONRHEUMATIC AORTIC (VALVE) STENOSIS Status: Chronic (4) Pneumonia Code(s): J18.9 - PNEUMONIA, UNSPECIFIED ORGANISM Status: Acute Qualifiers: Pneumonia type: due to unspecified organism Laterality: bilateral Lung location: lower lobe of lung Qualified Code(s): J18.9 - Pneumonia, unspecified organism - Plan #1. Acute on chronic respiratory failure with hypoxia. I suspect this may be secondary to heart failure exacerbation. There is some concern for pneumonia as well. -Continue O2 supplementation and wean as tolerated. ------- 2. Suspected pneumonia. -She is afebrile; clinically she has CHF exacerbation rather than pneumonia Antibiotics are discontinued. -suspect this is all from heart failure exacerbation. 3. Acute on chronic congestive heart failure with diastolic dysfunction. Low-dose diuresis - Need to be mindful of her valvular disease as well. --- 4. Severe aortic stenosis. Appreciate cardiology's recommendations. Continue routine home medications. ---- 5. Chronic atrial fibrillation. She was not felt to be a candidate for anticoagulation but she is on rate control medications. C. difficile negative E. coli Shiga toxin in the stool study negative Her BNP level is around 1000 - done yesterday. Creatinine in the normal range. Hypertension -- We will reduce her blood pressure medication Toprol as latest blood pressure is on the low side. -We will also change IV diuretics to p.o. We are planning to send her to the rehab patient prefers to be inpatient.
[2020-04-12] MEDS: Aspirin 81 mg Enteric Coated Tablet PO SCH (09:21)
[2020-04-12] MEDS: Carbidopa/Levodopa 10-100 mg Tablet PO SCH ×3 (09:21→21:38)
[2020-04-12] MEDS: Diazepam 5 MG TAB PO SCH (09:21)
[2020-04-12] MEDS: Digoxin 0.125 MG TAB PO SCH (09:22)
[2020-04-12] MEDS: Dicyclomine 10 MG CAP PO SCH ×2 (09:22→21:39)
[2020-04-12] MEDS: Furosemide 20 MG TAB PO SCH ×2 (09:23→12:52)
[2020-04-12] MEDS: Heparin 5,000 UNITS/ML VIAL SC SCH ×3 (09:23→21:38)
--- NOTE | 2020-04-12 11:34 | PDOC.HOSPP ---
- Subjective Encounter Date: 04/12/20 Encounter Time: 11:20 Subjective: Mrs. Franco stated that she was able to sleep overnight without complication. She denies nausea, headache, vomiting, chest pain, SOB. She noted that she has had loose stools. She is able to drink and eat, but with little appetite. She complained of neck pain likely due to positioning as well as BLE swelling. - Objective Vital Signs & Weight: Vital Signs (12 hours) Temp Pulse Resp BP BP Pulse Ox 04/12/20 09:35 113/58 L 04/12/20 09:22 65 04/12/20 08:00 97.6 F 60 20 106/57 L 96 04/12/20 03:09 93 L 04/12/20 03:00 97.7 F 62 22 H 102/59 L 96 Weight Admit Weight 73.936 kg Weight 73.936 kg I&O: 04/11/20 04/12/20 04/13/20 06:59 06:59 06:59 Intake Total 160 Output Total 300 500 Balance -140 -500 Result Diagrams: 04/12/20 04:34 04/12/20 04:34 Hospitalist ROS - Review of Systems Eyes: reports: eyelid inflammation (Left Eyelid looked inflamed) Respiratory: reports: shortness of breath, SOB with excertion Cardiovascular: reports: edema Gastrointestinal: reports: diarrhea Musculoskeletal: reports: neck pain - Medication Medications: Active Medications Generic Name Dose Route Start Last Admin Trade Name Freq PRN Reason Stop Dose Admin Acetaminophen 650 mg 04/06/20 10:26 04/11/20 22:22 Acetaminophen 325 Mg Tab PO 650 mg Q4H PRN Administration Headache/Fever/Mild Pain (1-3) Aspirin 81 mg 04/10/20 09:00 04/12/20 09:21 Aspirin 81 Mg Enteric Coated Tablet PO 81 mg DAILY [facility] Administration Atorvastatin Calcium 20 mg 04/06/20 21:00 04/11/20 22:21 Atorvastatin Calcium 20 Mg Tab PO 20 mg HS [facility] Administration Carbidopa/Levodopa 1 tab 04/06/20 15:00 04/12/20 09:21 Carbidopa/Levodopa 10-100 Mg Tablet PO 1 tab TID [facility] Administration Diazepam 2.5 mg 04/12/20 09:00 04/12/20 09:21 Diazepam 5 Mg Tab PO 2.5 mg DAILY [facility] Administration Dicyclomine HCl 10 mg 04/10/20 09:00 04/12/20 09:22 Dicyclomine 10 Mg Cap PO 10 mg BID [facility] Administration Digoxin 0.125 mg 04/07/20 09:00 04/12/20 09:22 Digoxin 0.125 Mg Tab PO 0.125 mg DAILY [facility] Administration Furosemide 20 mg 04/11/20 14:00 04/12/20 09:23 Furosemide 20 Mg Tab PO 20 mg 0900,1400 [facility] Administration Heparin Sodium (Porcine) 5,000 units 04/06/20 15:00 04/12/20 09:23 Heparin 5,000 Units/Ml Vial SC 5,000 units TID [facility] Administration Levothyroxine Sodium 50 mcg 04/07/20 06:00 04/12/20 04:19 Levothyroxine Sodium 50 Mcg Tab PO 50 mcg 0600 [facility] Administration Metoprolol Succinate 12.5 mg 04/12/20 09:00 04/12/20 09:23 Metoprolol Succinate Xl 25 Mg Tab PO 12.5 mg DAILY [facility]EVERYL Administration Sodium Chloride 10 ml 04/06/20 10:26 04/08/20 20:13 Flush - Normal Saline 10 Ml Syringe IVF 10 ml PRN PRN Administration Saline Flush Hospitalist Exam Vitals: Vital Signs (12 hours) Temp Pulse Resp BP BP Pulse Ox 04/12/20 09:35 113/58 L 04/12/20 09:22 65 04/12/20 08:00 97.6 F 60 20 106/57 L 96 04/12/20 03:09 93 L 04/12/20 03:00 97.7 F 62 22 H 102/59 L 96 Weight Admit Weight 73.936 kg Weight 73.936 kg General Appearance: awake alert Eye: PERRL ENT: normocephalic atraumatic Neck: supple, symmetric, no JVD Heart: RRR, murmur present Respiratory: no wheezes Extremities: 1+ LE edema Skin: normal turgor Musculoskeletal: generalized weakness Psychiatric: normal affect, normal behavior, A&O x 3 Hosp A/P - Plan Acute and chronic respiratory failure with hypoxia Code(s): J96.21 - ACUTE AND CHRONIC RESPIRATORY FAILURE WITH HYPOXIA Status: Acute (2) Acute on chronic diastolic heart failure Code(s): I50.33 - ACUTE ON CHRONIC DIASTOLIC (CONGESTIVE) HEART FAILURE Status: Acute (3) Moderate to severe aortic stenosis Code(s): I35.0 - NONRHEUMATIC AORTIC (VALVE) STENOSIS Status: Chronic (4) Pneumonia Code(s): J18.9 - PNEUMONIA, UNSPECIFIED ORGANISM Status: Acute Qualifiers: Pneumonia type: due to unspecified organism Laterality: bilateral Lung location: lower lobe of lung Qualified Code(s): J18.9 - Pneumonia, unspecified organism - Plan #1. Acute on chronic respiratory failure with hypoxia. I suspect this may be secondary to heart failure exacerbation. There is some concern for pneumonia as well. Continue O2 supplementation and wean as tolerated. ------- Continue on O2 supplementation as tolerated 2. Suspected pneumonia. I will keep her on empiric antibiotics for now pending full culture information being available. ----- Continue Antibiotics until culture report. 04/09/2020. Antibiotics are discontinued. -suspect this is all from heart failure exacerbation. 3. Acute on chronic congestive heart failure with diastolic dysfunction. Low-dose diuresis - Need to be mindful of her valvular disease as well. --- 4. Severe aortic stenosis. Appreciate cardiology's recommendations. Continue routine home medications. ---- Murmur is appreciated. Continue with medication and monitor 5. Chronic atrial fibrillation. She was not felt to be a candidate for anticoagulation but she is on rate control medications. C. difficile negative E. coli Shiga toxin in the stool study negative Her BNP level is around 1000 - done yesterday. Creatinine in the normal range. Hypertension -- We will reduce her blood pressure medication Toprol as latest blood pressure is on the low side. -We will also change IV diuretics to p.o.
[2020-04-12] MEDS: Acetaminophen 325 MG TAB PO PRN (12:54)
--- NOTE | 2020-04-12 13:46 | PDOC.CPN ---
- Subjective Date: 04/12/20 Time: 13:15 Interval history: No overnight events, she denies any chest pain, shortness of breath, she states her nausea & abdominal pain is better today - Review of Systems General: denies: fever/chills, weight/appetite/sleep changes, night sweats, fatigue Respiratory: denies: cough, congestion, shortness of breath, exercise intolerance Cardiovascular: denies: chest pain, palpitation, edema, paroxysmal nocturnal dyspnea, orthopnea Gastrointestinal: denies: nausea, vomiting, diarrhea, constipation, abd pain, GI bleeding Musculoskeletal: denies: pain, tenderness, stiffness, swelling, arthritis/arthralgias Neurological: denies: numbness, syncope, seizure, weakness - Objective Allergies/Adverse Reactions: Allergies Allergy/AdvReac Type Severity Reaction Status Date / Time codeine Allergy Verified 12/26/19 18:29 Penicillins Allergy Verified 12/26/19 18:29 Visit Medications: Current Medications Acetaminophen (Acetaminophen 325 Mg Tab) 650 mg PO Q4H PRN PRN Reason: Headache/Fever/Mild Pain (1-3) Last Admin: 04/12/20 12:54 Dose: 650 mg Documented by: Acetaminophen (Acetaminophen 650 Mg Suppository) 650 mg UT Q4H PRN PRN Reason: Headache/Fever/Mild Pain (1-3) Aspirin (Aspirin 81 Mg Enteric Coated Tablet) 81 mg PO DAILY [facility] Last Admin: 04/12/20 09:21 Dose: 81 mg Documented by: Atorvastatin Calcium (Atorvastatin Calcium 20 Mg Tab) 20 mg PO HS [facility] Last Admin: 04/11/20 22:21 Dose: 20 mg Documented by: Carbidopa/Levodopa (Carbidopa/Levodopa 10-100 Mg Tablet) 1 tab PO TID [facility] Last Admin: 04/12/20 09:21 Dose: 1 tab Documented by: Cyclobenzaprine HCl (Cyclobenzaprine 10 Mg Tab) 5 mg PO TID PRN PRN Reason: Muscle Spasm Diazepam (Diazepam 5 Mg Tab) 2.5 mg PO DAILY [facility] Last Admin: 04/12/20 09:21 Dose: 2.5 mg Documented by: Dicyclomine HCl (Dicyclomine 10 Mg Cap) 10 mg PO BID [facility] Last Admin: 04/12/20 09:22 Dose: 10 mg Documented by: Digoxin (Digoxin 0.125 Mg Tab) 0.125 mg PO DAILY [facility] Last Admin: 04/12/20 09:22 Dose: 0.125 mg Documented by: Furosemide (Furosemide 20 Mg Tab) 20 mg PO 0900,1400 [facility] Last Admin: 04/12/20 12:52 Dose: Not Given Documented by: Heparin Sodium (Porcine) (Heparin 5,000 Units/Ml Vial) 5,000 units SC TID [facility] Last Admin: 04/12/20 09:23 Dose: 5,000 units Documented by: Levothyroxine Sodium (Levothyroxine Sodium 50 Mcg Tab) 50 mcg PO 0600 [facility] Last Admin: 04/12/20 04:19 Dose: 50 mcg Documented by: Metoprolol Succinate (Metoprolol Succinate Xl 25 Mg Tab) 12.5 mg PO DAILY [facility] Last Admin: 04/12/20 09:23 Dose: 12.5 mg Documented by: Sodium Chloride (Flush - Normal Saline 10 Ml Syringe) 10 ml IVF PRN PRN PRN Reason: Saline Flush Last Admin: 04/08/20 20:13 Dose: 10 ml Documented by: Vital Signs & Weight: Vital Signs Temp Pulse Resp BP BP Pulse Ox 04/12/20 12:00 97.3 F L 70 20 88/55 L 96 04/12/20 09:35 113/58 L 04/12/20 09:22 65 04/12/20 08:00 97.6 F 60 20 106/57 L 96 04/12/20 03:09 93 L 04/12/20 03:00 97.7 F 62 22 H 102/59 L 96 Admit Weight 163 lb Weight 163 lb - Quality Measures Condition: Heart Failure CV meds: Beta Trina: Yes, ASIYA/ARB: No (on hold d/t ESTELLA), Statin: Yes, ASA: Yes, Anticoagulant: Yes - Physical Exam General: alert & oriented x3, appears well, no apparent distress Neck: no JVD/HJR, no bruit Cardiac: regular rate, S1/S2, systolic murmur Lungs: no wheeze, rales, rhonchi, bibasilar rales (these seem to be dry rales. i am concerned about possible pulm.fibrosis), oxygen. negative: normal breath sounds Neuro: grossly intact, motor function intact Abdomen: active bowel sounds, soft, non-tender Extremities: no cyanosis, no clubbing, no edema, 2+ popliteal, 2+ Posterior Tibial, 2+ Dorsalis Pedus, other: Skin: clear Musculoskeletal: normal range of motion, no pain - Labs Result Diagrams: 04/12/20 04:34 04/12/20 04:34 Troponin/CKMB CK-MB (CK-2) 2.4 ng/mL (0-6.6) 04/06/20 11:23 Troponin I 0.053 ng/mL (< 0.028) H 04/06/20 14:14 - EKG Interpretation EKG Method: Telemetry EKG: sinus rhythm (HR 70's) - Assessment/Plan Assessment/Plan: 1. Severe : cath 09/2019 showed 80% stenosis in intermediate branch, mild plaque to LAD, no stenosis in RCA, EF 60%, AV with gradient <20 mmHg. She states that she sees Dr. 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 Pulmonary HTN 3. Hypothermia 4. Acute on chronic diastolic CHF: patient was able to diureis 600 mL of fluid, her lung sounds are abnormal bilaterally, I am concerned about possible pulm. fibrosis. The swelling in her bilateral lower extremities has decreased. 5. COVID unknown as patient refused test 6. AF Continue current treatment plan at this time, she needs to follow-up with her primary reduction furnace operator helper to see if she is a candidate for a TAVR Pt. seen and exanined by by me. She feels fatigued today. I can still hear dry rales in both lung modi. Consider high resolution CT scan to eval. for posible pulm. fibrosis.
--- NOTE | 2020-04-12 17:39 | PQF ---
CLINICAL DOCUMENTATION CLARIFICATION FORM: Dear Dr. Callahan Date: 04/12/20 Please exercise your independent, professional judgment in responding to the clarification form. Clinical indicators are provided on the bottom of this form for your review. Please check appropriate box(es): [ x ] Protein Calorie Malnutrition: [ x] Mild [ ] Moderate [ ] Severe [ ] Other Malnutrition (please specify) [ ] Underweight without malnutrition [ ] Cachexia [ ] Other diagnosis [ ] Unable to determine In addition, please specify: Present on Admission (POA): [ ] Yes [ ] No [ ] Unable to determine For continuity of documentation, please document condition throughout progress notes and discharge summary. Thank You. To be completed by CDI/Coding staff for physician review: CLINICAL INDICATORS - SIGNS / SYMPTOMS / LABS / RESULTS AND LOCATION IN MR DIETARY ASSESSMENT 04/09: "MILD SCOOPING OF THE TEMPORALIS MUSCLE, ILD PECTORALIS MUSCLE WASTING, MILD ORBITAL FAT PAD WASTING, POSSIBLE 25% WEIGHT LOSS X 4 SUGGESTIVE OF MODERATE MALNUTRITION IN THE CONTEXT OF CHRONIC ILLNESS." BMI 27 RISK FACTORS / RESULTS AND LOCATION IN MR ADVANCES AGE PARKINSON'S DISEASE (DIETARY ASSESSMENT 04/09) ACUTE ON CHRONIC RESPIRATORY FAILURE (PN 04/12-SAMY) PNEUMONIA (PN 04/12-KIMMIERUSAMY) CHF (PN 04/12-SAMY) TREATMENT / RESULTS AND LOCATION IN MR DIETARY CONSULT NUTRITIONAL SUPPLEMENTS RECOMMENDED (DIETARY ASSMT 04/09) Moderate Malnutrition (in acute illness) Energy Intake: <75% of estimated energy requirement for > 7 days Weight Loss: 1-2%/1 week; 5%/ 1 month; 7.5%/3 months Other: mild body fat loss; mild muscle mass loss; mild fluid accumulation; Severe Malnutrition (in acute illness) Energy Intake: = 50% of estimated energy requirement for = 5 days Weight Loss: >2%/1 week; >5%/1 month; >7.5%/3 months Other: moderate body fat loss; moderate muscle mass loss; moderate- severe fluid accumulation; measurably reduced fine hairer strength Moderate Malnutrition (in chronic illness) Energy Intake: <75% of estimated energy requirement for =1 month Weight Loss: 5%/1 month; 7.5%/3 months; 10%/6 months; 20%/1 year Other: mild body fat loss; mild muscle mass loss; mild fluid accumulation Severe Malnutrition (in chronic illness) Energy Intake: =75% of estimated energy requirement for =1 month Weight Loss: >5%/1 month; >7.5%/3 months; >10%/6 months; >20%/1 year Other: severe body fat loss; severe muscle mass loss; severe fluid accumulation; measurably reduced fine hairer strength CDS Signature: Anika Pedroza RN Phone #: [phone] Date: 04/12/20 This is a permanent part of the Medical Record [facility]
[2020-04-12] MEDS: Atorvastatin Calcium 20 MG TAB PO SCH (21:39)
[2020-04-13 05:41] LABS: #Basophils 0.1 thou/uL (0.0-0.2); #Eosinphils 0.7 thou/uL (0.0-0.7); #Lymphocytes 1.1 thou/uL (1.20-3.40); #Monocytes 1.2 thou/uL (0.11-0.59); %Basophils 0.8 % (0.0-1.0); %Eosinophils 6.7 % (0.0-10.0); %Lymphocytes 10.6 % (21.0-51.0); %Monocytes 11.6 % (0.0-10.0); %Neutrophils 70.3 % (42.0-75.0); Hemoglobin 13.2 g/dL (12.0-16.0); Mean Corpuscular HGB CONC 31.7 g/dL (32.0-36.0); Mean Corpuscular Hemoglobin 31.1 pg (27.0-31.0); Mean Corpuscular Volume 98.2 fL (78.0-98.0); Mean Platelet Volume 9.5 fL (7.4-10.4); Platelet Count 256 thou/uL (130-400); RBC Distribution Width 12.1 % (11.5-14.5); Red Blood Cell (RBC) Count 4.24 mill/uL (4.20-5.40)
[2020-04-13] MEDS: Levothyroxine Sodium 50 MCG TAB PO SCH (05:45)
[2020-04-13 05:48] LABS: Anion Gap 14 mmol/L (10-20); BUN (Urea Nitrogen) 21 mg/dL (9.8-20.1); Calc. Creatinine Clearance 58 mL/min (70-130); Calcium 8.8 mg/dL (7.8-10.44); Carbon Dioxide 26 mmol/L (23-31); Chloride 101 mmol/L (98-107); Glucose 68 mg/dL (83-110); Potassium 5.3 mmol/L (3.5-5.1); Sodium 136 mmol/L (136-145)
[2020-04-13] MEDS: Aspirin 81 mg Enteric Coated Tablet PO SCH (08:31)
[2020-04-13] MEDS: Dicyclomine 10 MG CAP PO SCH ×2 (08:31→21:27)
[2020-04-13] MEDS: Carbidopa/Levodopa 10-100 mg Tablet PO SCH ×3 (08:31→21:26)
[2020-04-13] MEDS: Diazepam 5 MG TAB PO SCH (08:32)
[2020-04-13] MEDS: Digoxin 0.125 MG TAB PO SCH (08:32)
[2020-04-13] MEDS: Furosemide 20 MG TAB PO SCH ×2 (08:32→15:21)
[2020-04-13] MEDS: Heparin 5,000 UNITS/ML VIAL SC SCH ×3 (08:33→21:26)
--- NOTE | 2020-04-13 10:46 | PDOC.HOSPP ---
- Subjective Encounter Date: 04/13/20 Encounter Time: 08:45 Subjective: Mrs. Franco reported no overnight complications. She was able to sleep well. She continues to eat well. She reports no issues with urination and bowel movements. She denies nausea, vomiting, headache, chest pain. She states that she is still short of breath, but that is improving. She discussed wanting to see physical therapy. - Objective Vital Signs & Weight: Vital Signs (12 hours) Temp Pulse Resp BP Pulse Ox 04/13/20 08:32 67 04/13/20 08:00 97.7 F 67 18 119/67 98 04/13/20 07:26 97.7 F 67 18 119/67 98 04/13/20 03:17 97.8 F 65 16 100/52 L 98 Weight Admit Weight 163 lb Weight 159 lb 4.8 oz I&O: 04/12/20 04/13/20 04/14/20 06:59 06:59 06:59 Output Total 500 850 Balance -500 -850 Result Diagrams: 04/13/20 05:18 04/13/20 05:18 Hospitalist ROS - Review of Systems Constitutional: denies: fever Respiratory: reports: shortness of breath. denies: cough, pleuritic pain Cardiovascular: denies: chest pain Gastrointestinal: denies: nausea, vomiting, constipation Genitourinary: denies: incontinence - Medication Medications: Active Medications Generic Name Dose Route Start Last Admin Trade Name Freq PRN Reason Stop Dose Admin Acetaminophen 650 mg 04/06/20 10:26 04/12/20 12:54 Acetaminophen 325 Mg Tab PO 650 mg Q4H PRN Administration Headache/Fever/Mild Pain (1-3) Aspirin 81 mg 04/10/20 09:00 04/13/20 08:31 Aspirin 81 Mg Enteric Coated Tablet PO 81 mg DAILY [facility] Administration Atorvastatin Calcium 20 mg 04/06/20 21:00 04/12/20 21:39 Atorvastatin Calcium 20 Mg Tab PO 20 mg HS [facility] Administration Carbidopa/Levodopa 1 tab 04/06/20 15:00 04/13/20 08:31 Carbidopa/Levodopa 10-100 Mg Tablet PO 1 tab TID [facility] Administration Diazepam 2.5 mg 04/12/20 09:00 04/13/20 08:32 Diazepam 5 Mg Tab PO 2.5 mg DAILY [facility] Administration Dicyclomine HCl 10 mg 04/10/20 09:00 04/13/20 08:31 Dicyclomine 10 Mg Cap PO 10 mg BID [facility] Administration Digoxin 0.125 mg 04/07/20 09:00 04/13/20 08:32 Digoxin 0.125 Mg Tab PO 0.125 mg DAILY [facility] Administration Furosemide 20 mg 04/11/20 14:00 04/13/20 08:32 Furosemide 20 Mg Tab PO 20 mg 0900,1400 [facility] Administration Heparin Sodium (Porcine) 5,000 units 04/06/20 15:00 04/13/20 08:33 Heparin 5,000 Units/Ml Vial SC 5,000 units TID [facility] Administration Levothyroxine Sodium 50 mcg 04/07/20 06:00 04/13/20 05:45 Levothyroxine Sodium 50 Mcg Tab PO 50 mcg 0600 [facility] Administration Metoprolol Succinate 12.5 mg 04/12/20 09:00 04/13/20 08:31 Metoprolol Succinate Xl 25 Mg Tab PO 12.5 mg DAILY [facility] Administration Sodium Chloride 10 ml 04/06/20 10:26 04/08/20 20:13 Flush - Normal Saline 10 Ml Syringe IVF 10 ml PRN PRN Administration Saline Flush Hospitalist Exam Vitals: Vital Signs (12 hours) Temp Pulse Resp BP Pulse Ox 04/13/20 08:32 67 04/13/20 08:00 97.7 F 67 18 119/67 98 04/13/20 07:26 97.7 F 67 18 119/67 98 04/13/20 03:17 97.8 F 65 16 100/52 L 98 Weight Admit Weight 163 lb Weight 159 lb 4.8 oz General Appearance: NAD, awake alert Eye: PERRL, anicteric sclera ENT: normocephalic atraumatic Neck: supple Heart: RRR, murmur present Respiratory: rales Extremities: 1+ LE edema (Edema is improving) Skin: normal turgor Musculoskeletal: generalized weakness Psychiatric: normal affect, normal behavior, A&O x 3 Hosp A/P - Plan Acute and chronic respiratory failure with hypoxia Code(s): J96.21 - ACUTE AND CHRONIC RESPIRATORY FAILURE WITH HYPOXIA Status: Acute (2) Acute on chronic diastolic heart failure Code(s): I50.33 - ACUTE ON CHRONIC DIASTOLIC (CONGESTIVE) HEART FAILURE Status: Acute (3) Moderate to severe aortic stenosis Code(s): I35.0 - NONRHEUMATIC AORTIC (VALVE) STENOSIS Status: Chronic (4) Pneumonia Code(s): J18.9 - PNEUMONIA, UNSPECIFIED ORGANISM Status: Acute Qualifiers: Pneumonia type: due to unspecified organism Laterality: bilateral Lung l ocation: lower lobe of lung Qualified Code(s): J18.9 - Pneumonia, unspecified organism - Plan #1. Acute on chronic respiratory failure with hypoxia. I suspect this may be secondary to heart failure exacerbation. There is some concern for pneumonia as well. -Continue O2 supplementation and wean as tolerated. ------- 2. Suspected pneumonia. -She is afebrile; clinically she has CHF exacerbation rather than pneumonia Antibiotics are discontinued. -suspect this is all from heart failure exacerbation. 3. Acute on chronic congestive heart failure with diastolic dysfunction. Low-dose diuresis - Need to be mindful of her valvular disease as well. --- 4. Severe aortic stenosis. Appreciate cardiology's recommendations. Continue routine home medications. ---- 5. Chronic atrial fibrillation. She was not felt to be a candidate for anticoagulation but she is on rate control medications. C. difficile negative E. coli Shiga toxin in the stool study negative Her BNP level is around 1000 - done yesterday. Creatinine in the normal range. Hypertension -- We will reduce her blood pressure medication Toprol as latest blood pressure is on the low side. -We will also change IV diuretics to p.o. We are planning to send her to the rehab patient prefers to be inpatient. 04/13/20 Continue on O2 supplementation for her SOB Maintain low-dose oral diuresis and monitor BP for acute on chronic CHF exacerbation. Appreciate cardiology report of with 80% stenosis. 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
--- NOTE | 2020-04-13 13:44 | PDOC.CPN ---
- Subjective Date: 04/13/20 Time: 13:20 Interval history: Patient resting in bed, denies any complaints overnight, she states her shortness of breath is doing better. She denies any chest pain or trouble breathing today. She is waiting for placement, she is wanting to go to [place] to be close to family. - Review of Systems General: denies: fever/chills, weight/appetite/sleep changes, night sweats, fatigue Respiratory: denies: cough, congestion, shortness of breath, exercise intolerance Cardiovascular: denies: chest pain, palpitation, edema, paroxysmal nocturnal dyspnea, orthopnea Gastrointestinal: denies: nausea, vomiting, diarrhea, constipation, abd pain, GI bleeding Musculoskeletal: denies: pain, tenderness, stiffness, swelling, arthrit is/arthralgias Neurological: denies: numbness, syncope, seizure, weakness - Objective Allergies/Adverse Reactions: Allergies Allergy/AdvReac Type Severity Reaction Status Date / Time codeine Allergy Verified 12/26/19 18:29 Penicillins Allergy Verified 12/26/19 18:29 Visit Medications: Current Medications Acetaminophen (Acetaminophen 325 Mg Tab) 650 mg PO Q4H PRN PRN Reason: Headache/Fever/Mild Pain (1-3) Last Admin: 04/12/20 12:54 Dose: 650 mg Documented by: Acetaminophen (Acetaminophen 650 Mg Suppository) 650 mg [place] Q4H PRN PRN Reason: Headache/Fever/Mild Pain (1-3) Aspirin (Aspirin 81 Mg Enteric Coated Tablet) 81 mg PO DAILY [facility] Last Admin: 04/13/20 08:31 Dose: 81 mg Documented by: Atorvastatin Calcium (Atorvastatin Calcium 20 Mg Tab) 20 mg PO [facility] Last Admin: 04/12/20 21:39 Dose: 20 mg Documented by: Carbidopa/Levodopa (Carbidopa/Levodopa 10-100 Mg Tablet) 1 tab PO TID [facility] Last Admin: 04/13/20 08:31 Dose: 1 tab Documented by: Cyclobenzaprine HCl (Cyclobenzaprine 10 Mg Tab) 5 mg PO TID PRN PRN Reason: Muscle Spasm Diazepam (Diazepam 5 Mg Tab) 2.5 mg PO DAILY [facility] Last Admin: 04/13/20 08:32 Dose: 2.5 mg Documented by: Dicyclomine HCl (Dicyclomine 10 Mg Cap) 10 mg PO BID [facility] Last Admin: 04/13/20 08:31 Dose: 10 mg Documented by: Digoxin (Digoxin 0.125 Mg Tab) 0.125 mg PO DAILY [facility] Last Admin: 04/13/20 08:32 Dose: 0.125 mg Documented by: Furosemide (Furosemide 20 Mg Tab) 20 mg PO 0900,1400 [facility] Last Admin: 04/13/20 08:32 Dose: 20 mg Documented by: Heparin Sodium (Porcine) (Heparin 5,000 Units/Ml Vial) 5,000 units SC TID [facility] Last Admin: 04/13/20 08:33 Dose: 5,000 units Documented by: Levothyroxine Sodium (Levothyroxine Sodium 50 Mcg Tab) 50 mcg PO 0600 [facility] Last Admin: 04/13/20 05:45 Dose: 50 mcg Documented by: Metoprolol Succinate (Metoprolol Succinate Xl 25 Mg Tab) 12.5 mg PO DAILY [facility] Last Admin: 04/13/20 08:31 Dose: 12.5 mg Documented by: Sodium Chloride (Flush - Normal Saline 10 Ml Syringe) 10 ml IVF PRN PRN PRN Reason: Saline Flush Last Admin: 04/08/20 20:13 Dose: 10 ml Documented by: Vital Signs & Weight: Vital Signs Temp Pulse Resp BP Pulse Ox 04/13/20 11:04 97.9 F 65 18 93/51 L 96 04/13/20 08:32 67 04/13/20 08:00 97.7 F 67 18 119/67 98 04/13/20 07:26 97.7 F 67 18 119/67 98 04/13/20 03:17 97.8 F 65 16 100/52 L 98 Admit Weight 163 lb Weight 159 lb 4.8 oz - Quality Measures Condition: Heart Failure CV meds: Beta Trina: Yes, ASIYA/ARB: No (on hold d/t ESTELLA), Statin: Yes, ASA: Yes, Anticoagulant: Yes - Physical Exam General: alert & oriented x3, appears well, no apparent distress HEENT: mucus membranes moist Neck: no JVD/HJR, no bruit Cardiac: regular rate, S1/S2, systolic murmur Lungs: oxygen, other (scattered rales to bases of bilateral lungs) Neuro: grossly intact Abdomen: soft, non-tender Extremities: no cyanosis, no clubbing, 1+ LE edema, 2+ Posterior Tibial, 2+ Dorsalis Pedus Skin: clear Musculoskeletal: no pain - Labs Result Diagrams: 04/13/20 05:18 04/13/20 05:18 Troponin/CKMB CK-MB (CK-2) 2.4 ng/mL (0-6.6) 04/06/20 11:23 Troponin I 0.053 ng/mL (< 0.028) H 04/06/20 14:14 - EKG Interpretation EKG Method: Telemetry EKG: sinus rhythm - Assessment/Plan Assessment/Plan: 1. Severe : cath 09/2019 showed 80% stenosis in intermediate branch, mild plaque to LAD, no stenosis in RCA, EF 60%, AV with gradient <20 mmHg. 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 Pulmonary HTN 3. Hypothermia 4. Acute on chronic diastolic CHF: patient was able to diureis over 850 mL of fluid, her lung sounds are abnormal bilaterally, I am concerned about possible pulm. fibrosis. The swelling in her bilateral lower extremities has decreased. 5. COVID unknown as patient refused test 6. AF She is waiting for placement at this time, she is wanting to go to [place] to be close to family. She will need to follow-up with either Dr. Feliciano and I or Dr. Díaz as an outpatient to see if she is a candidate for a TAVR. The last cardiac cath did not indicate severe . Pt. seen and eval. bby me. I agreewith the A/P by he [employer]. Chest still has some rales, they seem dry. RRR. No edema. gjm
[2020-04-13] MEDS: Atorvastatin Calcium 20 MG TAB PO SCH (21:26)
[2020-04-14] MEDS: Levothyroxine Sodium 50 MCG TAB PO SCH (05:32)
[2020-04-14 06:13] LABS: Anion Gap 13 mmol/L (10-20); BUN (Urea Nitrogen) 21 mg/dL (9.8-20.1); Calc. Creatinine Clearance 56 mL/min (70-130); Calcium 8.7 mg/dL (7.8-10.44); Carbon Dioxide 29 mmol/L (23-31); Chloride 101 mmol/L (98-107); Glucose 74 mg/dL (83-110); Potassium 4.8 mmol/L (3.5-5.1); Sodium 138 mmol/L (136-145)
[2020-04-14] MEDS: Aspirin 81 mg Enteric Coated Tablet PO SCH (08:05)
[2020-04-14] MEDS: Diazepam 5 MG TAB PO SCH (08:06)
[2020-04-14] MEDS: Carbidopa/Levodopa 10-100 mg Tablet PO SCH ×3 (08:06→19:57)
[2020-04-14] MEDS: Heparin 5,000 UNITS/ML VIAL SC SCH ×3 (08:06→19:57)
[2020-04-14] MEDS: Dicyclomine 10 MG CAP PO SCH ×2 (08:07→19:58)
[2020-04-14] MEDS: Furosemide 20 MG TAB PO SCH ×2 (08:07→14:38)
[2020-04-14] MEDS: Digoxin 0.125 MG TAB PO SCH (11:02)
--- NOTE | 2020-04-14 13:16 | PDOC.HOSPP ---
- Subjective Encounter Date: 04/14/20 Encounter Time: 08:30 Subjective: Patient seen this morning. She appears well she did not had any new complaints. Again the rehab pending plan is reiterated to her she expressed her understanding. - Objective Vital Signs & Weight: Vital Signs (12 hours) Temp Pulse Resp BP BP Pulse Ox 04/14/20 11:58 97.3 F L 69 18 97/60 100 04/14/20 11:02 92 04/14/20 07:58 97.6 F 69 16 97/53 L 100 04/14/20 03:15 98 F 77 20 121/66 99 Weight Admit Weight 163 lb Weight 157 lb 12.8 oz I&O: 04/13/20 04/14/20 04/15/20 06:59 06:59 06:59 Intake Total 200 Output Total 850 500 Balance -850 -300 Result Diagrams: 04/13/20 05:18 04/14/20 05:43 Hospitalist ROS - Medication Medications: Active Medications Generic Name Dose Route Start Last Admin Trade Name Freq PRN Reason Stop Dose Admin Acetaminophen 650 mg 04/06/20 10:26 04/12/20 12:54 Acetaminophen 325 Mg Tab PO 650 mg Q4H PRN Administration Headache/Fever/Mild Pain (1-3) Aspirin 81 mg 04/10/20 09:00 04/14/20 08:05 Aspirin 81 Mg Enteric Coated Tablet PO 81 mg DAILY [facility] Administration Atorvastatin Calcium 20 mg 04/06/20 21:00 04/13/20 21:26 Atorvastatin Calcium 20 Mg Tab PO 20 mg HS [facility] Administration Carbidopa/Levodopa 1 tab 04/06/20 15:00 04/14/20 08:06 Carbidopa/Levodopa 10-100 Mg Tablet PO 1 tab TID [facility] Administration Diazepam 2.5 mg 04/12/20 09:00 04/14/20 08:06 Diazepam 5 Mg Tab PO 2.5 mg DAILY [facility] Administration Dicyclomine HCl 10 mg 04/10/20 09:00 04/14/20 08:07 Dicyclomine 10 Mg Cap PO 10 mg BID [facility] Administration Digoxin 0.125 mg 04/07/20 09:00 04/14/20 11:02 Digoxin 0.125 Mg Tab PO 0.125 mg DAILY [facility] Administration Furosemide 20 mg 04/11/20 14:00 04/14/20 08:07 Furosemide 20 Mg Tab PO 20 mg 0900,1400 [facility] Administration Heparin Sodium (Porcine) 5,000 units 04/06/20 15:00 04/14/20 08:06 Heparin 5,000 Units/Ml Vial SC 5,000 units TID [facility] Administration Levothyroxine Sodium 50 mcg 04/07/20 06:00 04/14/20 05:32 Levothyroxine Sodium 50 Mcg Tab PO 50 mcg 0600 [facility] Administration Metoprolol Succinate 12.5 mg 04/12/20 09:00 04/14/20 11:02 Metoprolol Succinate Xl 25 Mg Tab PO 12.5 mg DAILY [facility] Administration Sodium Chloride 10 ml 04/06/20 10:26 04/13/20 21:27 Flush - Normal Saline 10 Ml Syringe IVF 10 ml PRN PRN Administration Saline Flush Hospitalist Exam Vitals: Vital Signs (12 hours) Temp Pulse Resp BP BP Pulse Ox 04/14/20 11:58 97.3 F L 69 18 97/60 100 04/14/20 11:02 92 04/14/20 07:58 97.6 F 69 16 97/53 L 100 04/14/20 03:15 98 F 77 20 121/66 99 Weight Admit Weight 163 lb Weight 157 lb 12.8 oz General Appearance: NAD, awake alert Eye: PERRL ENT: normocephalic atraumatic Neck: supple Heart: RRR Respiratory: normal chest expansion, rhonchi Gastrointestinal: soft, normal bowel sounds Neurological: no focal deficits Musculoskeletal: generalized weakness Psychiatric: A&O x 3 Hosp A/P - Plan Acute and chronic respiratory failure with hypoxia Code(s): J96.21 - ACUTE AND CHRONIC RESPIRATORY FAILURE WITH HYPOXIA Status: Acute (2) Acute on chronic diastolic heart failure Code(s): I50.33 - ACUTE ON CHRONIC DIASTOLIC (CONGESTIVE) HEART FAILURE Status: Acute (3) Moderate to severe aortic stenosis Code(s): I35.0 - NONRHEUMATIC AORTIC (VALVE) STENOSIS Status: Chronic (4) Pneumonia Code(s): J18.9 - PNEUMONIA, UNSPECIFIED ORGANISM Status: Acute Qualifiers: Pneumonia type: due to unspecified organism Laterality: bilateral Lung location: lower lobe of lung Qualified Code(s): J18.9 - Pneumonia, unspecified organism - Plan #1. Acute on chronic respiratory failure with hypoxia. I suspect this may be secondary to heart failure exacerbation. There is some concern for pneumonia as well. -Continue O2 supplementation and wean as tolerated. ------- 2. Suspected pneumonia. -She is afebrile; clinically she has CHF exacerbation rather than pneumonia Antibiotics are discontinued. -suspect this is all from heart failure exacerbation. 3. Acute on chronic congestive heart failure with diastolic dysfunction. Low-dose diuresis - Need to be mindful of her valvular disease as well. --- 4. Severe aortic stenosis. Appreciate cardiology's recommendations. Continue routine home medications. ---- 5. Chronic atrial fibrillation. She was not felt to be a candidate for anticoagulation but she is on rate control medications. C. difficile negative E. coli Shiga toxin in the stool study negative Her BNP level is around 1000 - done yesterday. Creatinine in the normal range. Hypertension -- We will reduce her blood pressure medication Toprol as latest blood pressure is on the low side. -We will also change IV diuretics to p.o. We are planning to send her to the rehab patient prefers to be inpatient. 04/13/20 Continue on O2 supplementation for her SOB Maintain low-dose oral diuresis and monitor BP for acute on chronic CHF exacerbation. Appreciate cardiology report of with 80% stenosis. 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 Feliciano Appears the last cardiac catheter did not showed evidence of severe aortic stenosis however she needs to follow-up with them in the very near future. Her blood pressure is almost on the low side for the most of the time. She is not not able to get aggressive IV diuresis. To transfer to inpatient rehab pending [facility] Patient seen with medical student and I agree with plan for today.
[2020-04-14 13:43] VITALS: BMI 26.2
--- NOTE | 2020-04-14 13:59 | PDOC.CPN ---
- Subjective Date: 04/14/20 Time: 13:20 Interval history: Patient sitting up in bed, she states that she is feeling better but still complains of generalized weakness. She denies any chest pain, trouble breathing, or shortness of breath today. - Review of Systems General: denies: fever/chills, weight/appetite/sleep changes, night sweats, fatigue Respiratory: denies: cough, congestion, shortness of breath, exercise intolerance Cardiovascular: denies: chest pain, palpitation, edema, paroxysmal nocturnal dyspnea, orthopnea Gastrointestinal: denies: nausea, vomiting, diarrhea, constipation, abd pain, GI bleeding Musculoskeletal: denies: pain, tenderness, stiffness, swelling, arthritis/arthralgias Neurological: denies: numbness, syncope, seizure, weakness - Objective Allergies/Adverse Reactions: Allergies Allergy/AdvReac Type Severity Reaction Status Date / Time codeine Allergy Verified 12/26/19 18:29 Penicillins Allergy Verified 12/26/19 18:29 Visit Medications: Current Medications Acetaminophen (Acetaminophen 325 Mg Tab) 650 mg PO Q4H PRN PRN Reason: Headache/Fever/Mild Pain (1-3) Last Admin: 04/12/20 12:54 Dose: 650 mg Documented by: Acetaminophen (Acetaminophen 650 Mg Suppository) [address] Q4H PRN PRN Reason: Headache/Fever/Mild Pain (1-3) Aspirin (Aspirin 81 Mg Enteric Coated Tablet) 81 mg PO DAILY [facility] Last Admin: 04/14/20 08:05 Dose: 81 mg Documented by: Atorvastatin Calcium (Atorvastatin Calcium 20 Mg Tab) 20 mg PO HS [facility] Last Admin: 04/13/20 21:26 Dose: 20 mg Documented by: Carbidopa/Levodopa (Carbidopa/Levodopa 10-100 Mg Tablet) 1 tab PO TID [facility] Last Admin: 04/14/20 08:06 Dose: 1 tab Documented by: Cyclobenzaprine HCl (Cyclobenzaprine 10 Mg Tab) 5 mg PO TID PRN PRN Reason: Muscle Spasm Diazepam (Diazepam 5 Mg Tab) 2.5 mg PO DAILY [facility] Last Admin: 04/14/20 08:06 Dose: 2.5 mg Documented by: Dicyclomine HCl (Dicyclomine 10 Mg Cap) 10 mg PO BID [facility] Last Admin: 04/14/20 08:07 Dose: 10 mg Documented by: Digoxin (Digoxin 0.125 Mg Tab) 0.125 mg PO DAILY [facility] Last Admin: 04/14/20 11:02 Dose: 0.125 mg Documented by: Furosemide (Furosemide 20 Mg Tab) 20 mg PO 0900,1400 [facility] Last Admin: 04/14/20 08:07 Dose: 20 mg Documented by: Heparin Sodium (Porcine) (Heparin 5,000 Units/Ml Vial) 5,000 units SC TID [facility] Last Admin: 04/14/20 08:06 Dose: 5,000 units Documented by: Levothyroxine Sodium (Levothyroxine Sodium 50 Mcg Tab) 50 mcg PO 0600 [facility] Last Admin: 04/14/20 05:32 Dose: 50 mcg Documented by: Metoprolol Succinate (Metoprolol Succinate Xl 25 Mg Tab) 12.5 mg PO DAILY [facility] Last Admin: 04/14/20 11:02 Dose: 12.5 mg Documented by: Sodium Chloride (Flush - Normal Saline 10 Ml Syringe) 10 ml IVF PRN PRN PRN Reason: Saline Flush Last Admin: 04/13/20 21:27 Dose: 10 ml Documented by: Vital Signs & Weight: Vital Signs Temp Pulse Resp BP BP Pulse Ox 04/14/20 11:58 97.3 F L 69 18 97/60 100 04/14/20 11:02 92 04/14/20 07:58 97.6 F 69 16 97/53 L 100 04/14/20 03:15 98 F 77 20 121/66 99 Admit Weight 163 lb Weight 157 lb 12.8 oz - Quality Measures Condition: Heart Failure CV meds: Beta Trina: Yes, ASIYA/ARB: No (on hold d/t ESTELLA), Statin: Yes, ASA: Yes, Anticoagulant: Yes - Physical Exam General: alert & oriented x3, appears well, no apparent distress HEENT: mucus membranes moist Neck: midline trachea, no JVD/HJR, no masses, no bruit Cardiac: regular rate, regular rhythm, S1/S2, systolic murmur Lungs: normal breath sounds, normal exam, no wheeze, rales, rhonchi, oxygen, other Neuro: grossly intact, motor function intact Abdomen: soft, non-tender Extremities: no cyanosis, no clubbing, no edema, 2+ Posterior Tibial, 2+ Dorsalis Pedus Skin: clear Musculoskeletal: no pain - Labs Result Diagrams: 04/13/20 05:18 04/14/20 05:43 Troponin/CKMB CK-MB (CK-2) 2.4 ng/mL (0-6.6) 04/06/20 11:23 Troponin I 0.053 ng/mL (< 0.028) H 04/06/20 14:14 - EKG Interpretation EKG Method: Telemetry EKG: sinus rhythm - Assessment/Plan Assessment/Plan: 1. Severe : cath 09/2019 showed 80% stenosis in intermediate branch, mild plaque to LAD, no stenosis in RCA, EF 60%, AV with gradient <20 mmHg. 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 Pulmonary HTN 3. Hypothermia 4. Acute on chronic diastolic CHF: Her lung sounds are clear today and the swelling in her bilateral lower extremities has decreased. 5. COVID unknown as patient refused test 6. AF Continue current treatment plan. Patient waiting for placement.
[2020-04-14] MEDS: Atorvastatin Calcium 20 MG TAB PO SCH (19:58)
[2020-04-15] MEDS: Levothyroxine Sodium 50 MCG TAB PO SCH (05:25)
[2020-04-15] MEDS: Heparin 5,000 UNITS/ML VIAL SC SCH ×3 (08:55→20:57)
[2020-04-15] MEDS: Aspirin 81 mg Enteric Coated Tablet PO SCH (08:56)
[2020-04-15] MEDS: Digoxin 0.125 MG TAB PO SCH (08:56)
[2020-04-15] MEDS: Diazepam 5 MG TAB PO SCH (08:57)
[2020-04-15] MEDS: Dicyclomine 10 MG CAP PO SCH ×2 (08:58→20:56)
[2020-04-15] MEDS: Furosemide 20 MG TAB PO SCH ×2 (08:58→14:31)
[2020-04-15] MEDS: Carbidopa/Levodopa 10-100 mg Tablet PO SCH ×3 (08:58→20:56)
--- NOTE | 2020-04-15 12:42 | PDOC.HOSPP ---
- Subjective Encounter Date: 04/15/20 Encounter Time: 09:45 Subjective: Patient seen this morning she is very cooperative. Also a little frustrated as still not able to get to the [facility] inpatient rehab. Checked with the case briefer. Afebrile and normotensive. Satting 94% with 3 L oxygen by nasal cannula. - Objective Vital Signs & Weight: Vital Signs (12 hours) Temp Pulse Resp BP BP Pulse Ox 04/15/20 08:42 97.6 F 63 18 117/60 94 L 04/15/20 05:31 100 04/15/20 03:35 97.4 F L 60 18 106/61 96 Weight Admit Weight 163 lb Weight 157 lb 12.8 oz I&O: 04/14/20 04/15/20 04/16/20 06:59 06:59 06:59 Intake Total 440 Output Total 500 Balance -60 Result Diagrams: 04/13/20 05:18 04/14/20 05:43 Hospitalist ROS - Medication Medications: Active Medications Generic Name Dose Route Start Last Admin Trade Name Freq PRN Reason Stop Dose Admin Acetaminophen 650 mg 04/06/20 10:26 04/12/20 12:54 Acetaminophen 325 Mg Tab PO 650 mg Q4H PRN Administration Headache/Fever/Mild Pain (1-3) Aspirin 81 mg 04/10/20 09:00 04/15/20 08:56 Aspirin 81 Mg Enteric Coated Tablet PO 81 mg DAILY [facility] Administration Atorvastatin Calcium 20 mg 04/06/20 21:00 04/14/20 19:58 Atorvastatin Calcium 20 Mg Tab PO 20 mg HS [facility] Administration Carbidopa/Levodopa 1 tab 04/06/20 15:00 04/15/20 08:58 Carbidopa/Levodopa 10-100 Mg Tablet PO 1 tab TID [facility] Administration Diazepam 2.5 mg 04/12/20 09:00 04/15/20 08:57 Diazepam 5 Mg Tab PO 2.5 mg DAILY [facility] Administration Dicyclomine HCl 10 mg 04/10/20 09:00 04/15/20 08:58 Dicyclomine 10 Mg Cap PO 10 mg BID [facility] Administration Digoxin 0.125 mg 04/07/20 09:00 04/15/20 08:56 Digoxin 0.125 Mg Tab PO 0.125 mg DAILY [facility] Administration Furosemide 20 mg 04/11/20 14:00 04/15/20 08:58 Furosemide 20 Mg Tab PO 20 mg 0900,1400 [facility] Administration Heparin Sodium (Porcine) 5,000 units 04/06/20 15:00 04/15/20 08:55 Heparin 5,000 Units/Ml Vial SC 5,000 units TID [facility] Administration Levothyroxine Sodium 50 mcg 04/07/20 06:00 04/15/20 05:25 Levothyroxine Sodium 50 Mcg Tab PO 50 mcg 0600 [facility] Administration Metoprolol Succinate 12.5 mg 04/12/20 09:00 04/15/20 08:57 Metoprolol Succinate Xl 25 Mg Tab PO 12.5 mg DAILY [facility] Administration Sodium Chloride 10 ml 04/06/20 10:26 04/13/20 21:27 Flush - Normal Saline 10 Ml Syringe IVF 10 ml PRN PRN Administration Saline Flush Hospitalist Exam Vitals: Vital Signs (12 hours) Temp Pulse Resp BP BP Pulse Ox 04/15/20 08:42 97.6 F 63 18 117/60 94 L 04/15/20 05:31 100 04/15/20 03:35 97.4 F L 60 18 106/61 96 Weight Admit Weight 163 lb Weight 157 lb 12.8 oz General Appearance: NAD, awake alert Eye: PERRL ENT: normocephalic atraumatic Neck: supple Heart: RRR, normal peripheral pulses Respiratory: CTAB, normal chest expansion Gastrointestinal: soft, normal bowel sounds Extremities: 1+ LE edema Neurological: cranial nerve grossly intact, no focal deficits Psychiatric: A&O x 3 Hosp A/P - Plan Acute and chronic respiratory failure with hypoxia Code(s): J96.21 - ACUTE AND CHRONIC RESPIRATORY FAILURE WITH HYPOXIA Status: Acute (2) Acute on chronic diastolic heart failure Code(s): I50.33 - ACUTE ON CHRONIC DIASTOLIC (CONGESTIVE) HEART FAILURE Status: Acute (3) Moderate to severe aortic stenosis Code(s): I35.0 - NONRHEUMATIC AORTIC (VALVE) STENOSIS Status: Chronic (4) Pneumonia Code(s): J18.9 - PNEUMONIA, UNSPECIFIED ORGANISM Status: Acute Qualifiers: Pneumonia type: due to unspecified organism Laterality: bilateral Lung location: lower lobe of lung Qualified Code(s): J18.9 - Pneumonia, unspecified organism - Plan #1. Acute on chronic respiratory failure with hypoxia. I suspect this may be secondary to heart failure exacerbation. There is some concern for pneumonia as well. -Continue O2 supplementation and wean as tolerated. ------- 2. Suspected pneumonia. -She is afebrile; clinically she has CHF exacerbation rather than pneumonia Antibiotics are discontinued. -suspect this is all from heart failure exacerbation. 3. Acute on chronic congestive heart failure with diastolic dysfunction. Low-dose diuresis - Need to be mindful of her valvular disease as well. --- 4. Severe aortic stenosis. Appreciate cardiology's recommendations. Continue routine home medications. ---- 5. Chronic atrial fibrillation. She was not felt to be a candidate for anticoagulation but she is on rate control medications. C. difficile negative E. coli Shiga toxin in the stool study negative Her BNP level is around 1000 - done yesterday. Creatinine in the normal range. Hypertension -- We will reduce her blood pressure medication Toprol as latest blood pressure is on the low side. -We will also change IV diuretics to p.o. We are planning to send her to the rehab patient prefers to be inpatient. 04/13/20 Continue on O2 supplementation for her SOB Maintain low-dose oral diuresis and monitor BP for acute on chronic CHF exacerbation. Appreciate cardiology report of with 80% stenosis. -Discuss need for High-resolution CT to rule out pulmonary fi brosis.---------------->consider Outpt Continue rate control medication for Chronic Atrial Fibrillation/toprol Monitor Hyperkalemia - 5.3.------------> patient has no kidney dysfunction -will monitor in the morning her lab if it is above 5.5 will provide Kayexalate / hyperkalemia protocol Dr. 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 Feliciano Appears the last cardiac catheter did not showed evidence of severe aortic stenosis however she needs to follow-up with them in the very near future. Her blood pressure is almost on the low side for the most of the time. She is not not able to get aggressive IV diuresis. To transfer to inpatient rehab pending [facility]. Patient seen with medical student and I agree with plan for today. Pending placement.
--- NOTE | 2020-04-15 13:40 | PDOC.CPN ---
- Subjective Date: 04/15/20 Time: 13:20 Interval history: No overnight cardiac events, patient resting in bed, she states that she has worked with PT yesterday and today, she states it went well. She also states that she is not feeling weak like she was yesterday, she is still waiting for rehab placement. She denies any chest pain, shortness of breath overnight or today. No other complaints today. - Review of Systems General: denies: fever/chills, weight/appetite/sleep changes, night sweats, fatigue Respiratory: denies: cough, congestion, shortness of breath, exercise intolerance Cardiovascular: denies: chest pain, palpitation, edema, paroxysmal nocturnal dyspnea, orthopnea Gastrointestinal: denies: nausea, vomiting, diarrhea, constipation, abd pain, GI bleeding Musculoskeletal: denies: pain, tenderness, stiffness, swelling, arthritis/arthralgias Neurological: denies: numbness, syncope, seizure, weakness - Objective Allergies/Adverse Reactions: Allergies Allergy/AdvReac Type Severity Reaction Status Date / Time codeine Allergy Verified 12/26/19 18:29 Penicillins Allergy Verified 12/26/19 18:29 Visit Medications: Current Medications Acetaminophen (Acetaminophen 325 Mg Tab) 650 mg PO Q4H PRN PRN Reason: Headache/Fever/Mild Pain (1-3) Last Admin: 04/12/20 12:54 Dose: 650 mg Documented by: Acetaminophen (Acetaminophen 650 Mg Suppository) 650 mg SD Q4H PRN PRN Reason: Headache/Fever/Mild Pain (1-3) Aspirin (Aspirin 81 Mg Enteric Coated Tablet) 81 mg PO DAILY [facility] Last Admin: 04/15/20 08:56 Dose: 81 mg Documented by: Atorvastatin Calcium (Atorvastatin Calcium 20 Mg Tab) 20 mg PO HS [facility] Last Admin: 04/14/20 19:58 Dose: 20 mg Documented by: Carbidopa/Levodopa (Carbidopa/Levodopa 10-100 Mg Tablet) 1 tab PO TID [facility] Last Admin: 04/15/20 08:58 Dose: 1 tab Documented by: Cyclobenzaprine HCl (Cyclobenzaprine 10 Mg Tab) 5 mg PO TID PRN PRN Reason: Muscle Spasm Diazepam (Diazepam 5 Mg Tab) 2.5 mg PO DAILY [facility] Last Admin: 04/15/20 08:57 Dose: 2.5 mg Documented by: Dicyclomine HCl (Dicyclomine 10 Mg Cap) 10 mg PO BID [facility] Last Admin: 04/15/20 08:58 Dose: 10 mg Documented by: Digoxin (Digoxin 0.125 Mg Tab) 0.125 mg PO DAILY [facility] Last Admin: 04/15/20 08:56 Dose: 0.125 mg Documented by: Furosemide (Furosemide 20 Mg Tab) 20 mg PO 0900,1400 [facility] Last Admin: 04/15/20 08:58 Dose: 20 mg Documented by: Heparin Sodium (Porcine) (Heparin 5,000 Units/Ml Vial) 5,000 units SC TID [facility] Last Admin: 04/15/20 08:55 Dose: 5,000 units Documented by: Levothyroxine Sodium (Levothyroxine Sodium 50 Mcg Tab) 50 mcg PO 0600 [facility] Last Admin: 04/15/20 05:25 Dose: 50 mcg Documented by: Metoprolol Succinate (Metoprolol Succinate Xl 25 Mg Tab) 12.5 mg PO DAILY [facility] Last Admin: 04/15/20 08:57 Dose: 12.5 mg Documented by: Sodium Chloride (Flush - Normal Saline 10 Ml Syringe) 10 ml IVF PRN PRN PRN Reason: Saline Flush Last Admin: 04/13/20 21:27 Dose: 10 ml Documented by: Vital Signs & Weight: Vital Signs Temp Pulse Resp BP BP Pulse Ox 04/15/20 08:42 97.6 F 63 18 117/60 94 L 04/15/20 05:31 100 04/15/20 03:35 97.4 F L 60 18 106/61 96 Admit Weight 163 lb Weight 157 lb 12.8 oz - Quality Measures Condition: Heart Failure CV meds: Beta Trina: Yes, ASIYA/ARB: No (on hold d/t ESTELLA), Statin: Yes, ASA: Yes, Anticoagulant: Yes - Physical Exam General: appears well, no apparent distress HEENT: normocephaly Neck: supple neck, midline trachea, no JVD/HJR, no bruit Cardiac: regular rate and rhythm, S1/S2, systolic murmur Lungs: clear to auscultation, normal breath sounds, no wheeze, rales, rhonchi, other (patient is on room air today) Neuro: grossly intact, motor function intact Abdomen: active bowel sounds, soft, non-tender Extremities: no cyanosis, no clubbing, no edema, 2+ popliteal, 2+ Posterior Tibial, 2+ Dorsalis Pedus Skin: clear Musculoskeletal: no pain, no fluid collection - Labs Result Diagrams: 04/13/20 05:18 04/14/20 05:43 Troponin/CKMB CK-MB (CK-2) 2.4 ng/mL (0-6.6) 04/06/20 11:23 Troponin I 0.053 ng/mL (< 0.028) H 04/06/20 14:14 - EKG Interpretation EKG Method: Telemetry EKG: sinus rhythm - Assessment/Plan Assessment/Plan: 1. Severe : cath 09/2019 showed 80% stenosis in intermediate branch, mild plaque to LAD, no stenosis in RCA, EF 60%, AV with gradient <20 mmHg EMMA 0.6 sq cm. 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 Pulmonary HTN 3. Hypothermia 4. Acute on chronic diastolic CHF: Her lung sounds are clear today and the swelling in her bilateral lower extremities has decreased. 5. COVID unknown as patient refused test 6. AF Stable from cardiac standpoint, will need to follow up with her primary fire lieutenant marine upon discharge for aortic stenosis. Awaiting rehab placement, continue current treatment plan. Pt. seen and eval. by me. I agree with the A/P by the [employer]. Her exam still indicates pulm. rales, consider fibrosis. The cardiac status is stable. I will sign off. gjm
[2020-04-15] MEDS: Atorvastatin Calcium 20 MG TAB PO SCH (20:56)
[2020-04-16] MEDS: Levothyroxine Sodium 50 MCG TAB PO SCH (05:41)
[2020-04-16] MEDS: Diazepam 5 MG TAB PO SCH (09:13)
[2020-04-16] MEDS: Digoxin 0.125 MG TAB PO SCH (09:15)
[2020-04-16] MEDS: Aspirin 81 mg Enteric Coated Tablet PO SCH (09:16)
[2020-04-16] MEDS: Carbidopa/Levodopa 10-100 mg Tablet PO SCH ×3 (09:16→20:55)
[2020-04-16] MEDS: Furosemide 20 MG TAB PO SCH ×2 (09:16→13:27)
[2020-04-16] MEDS: Dicyclomine 10 MG CAP PO SCH ×2 (09:17→20:55)
[2020-04-16] MEDS: Heparin 5,000 UNITS/ML VIAL SC SCH ×3 (09:24→20:55)
--- NOTE | 2020-04-16 11:38 | CT ---
CT CHEST WITHOUT CONTRAST HIGH RESOLUTION: HISTORY: Pulmonary fibrosis. COMPARISON: A CTA of the chest 04/06/2020. FINDINGS: Heart size is mildly enlarged. Large hiatal hernia, with organoaxial volvulus, a chronic finding. Pulmonary trunk and the left and right pulmonary arteries are dilated. Heart size is mildly enlarged . No pneumothorax. No significant effusion. With regard to the lungs, there basilar and subpleural codominant distribution of honeycombing with a rticular pattern peripheral traction bronchiectasis. No significant ground-glass opacities. No cons olidation. IMPRESSION: Usual interstitial pneumonitis pattern of mild-moderate pulmonary fibrosis. POS: [facility]
--- NOTE | 2020-04-16 13:44 | PDOC.HOSPP ---
- Subjective Encounter Date: 04/16/20 Encounter Time: 11:45 Subjective: Patient seen with the supervising group. Patient denies any acute complaints. The care plan discussed with her in detail. Pending placement. - Objective Vital Signs & Weight: Vital Signs (12 hours) Temp Pulse Resp BP Pulse Ox 04/16/20 12:00 97.8 F 73 20 93/69 95 04/16/20 09:15 56 L 04/16/20 08:03 98.2 F 56 L 16 117/65 97 04/16/20 04:42 98 04/16/20 03:59 70 18 98/56 L 98 Weight Admit Weight 163 lb Weight 157 lb 12.8 oz I&O: 04/15/20 04/16/20 04/17/20 06:59 06:59 06:59 Intake Total 440 880 Output Total 500 Balance -60 880 Result Diagrams: 04/13/20 05:18 04/14/20 05:43 Hospitalist ROS - Medication Medications: Active Medications Generic Name Dose Route Start Last Admin Trade Name Freq PRN Reason Stop Dose Admin Acetaminophen 650 mg 04/06/20 10:26 04/12/20 12:54 Acetaminophen 325 Mg Tab PO 650 mg Q4H PRN Administration Headache/Fever/Mild Pain (1-3) Aspirin 81 mg 04/10/20 09:00 04/16/20 09:16 Aspirin 81 Mg Enteric Coated Tablet PO 81 mg DAILY [facility] Administration Atorvastatin Calcium 20 mg 04/06/20 21:00 04/15/20 20:56 Atorvastatin Calcium 20 Mg Tab PO 20 mg HS [facility] Administration Carbidopa/Levodopa 1 tab 04/06/20 15:00 04/16/20 13:27 Carbidopa/Levodopa 10-100 Mg Tablet PO 1 tab TID [facility] Administration Diazepam 2.5 mg 04/12/20 09:00 04/16/20 09:13 Diazepam 5 Mg Tab PO 2.5 mg DAILY [facility] Administration Dicyclomine HCl 10 mg 04/10/20 09:00 04/16/20 09:17 Dicyclomine 10 Mg Cap PO 10 mg BID [facility] Administration Digoxin 0.125 mg 04/07/20 09:00 04/16/20 09:15 Digoxin 0.125 Mg Tab PO 0.125 mg DAILY [facility] Administration Furosemide 20 mg 04/11/20 14:00 04/16/20 13:27 Furosemide 20 Mg Tab PO 20 mg 0900,1400 [facility] Administration Heparin Sodium (Porcine) 5,000 units 04/06/20 15:00 04/16/20 13:29 Heparin 5,000 Units/Ml Vial SC 5,000 units TID [facility] Administration Levothyroxine Sodium 50 mcg 04/07/20 06:00 04/16/20 05:41 Levothyroxine Sodium 50 Mcg Tab PO 50 mcg 0600 [facility] Administration Metoprolol Succinate 12.5 mg 04/12/20 09:00 04/16/20 09:15 Metoprolol Succinate Xl 25 Mg Tab PO 12.5 mg DAILY [facility] Administration Sodium Chloride 10 ml 04/06/20 10:26 04/13/20 21:27 Flush - Normal Saline 10 Ml Syringe IVF 10 ml PRN PRN Administration Saline Flush Hospitalist Exam Vitals: Vital Signs (12 hours) Temp Pulse Resp BP Pulse Ox 04/16/20 12:00 97.8 F 73 20 93/69 95 04/16/20 09:15 56 L 04/16/20 08:03 98.2 F 56 L 16 117/65 97 04/16/20 04:42 98 04/16/20 03:59 70 18 98/56 L 98 Weight Admit Weight 163 lb Weight 157 lb 12.8 oz General Appearance: NAD, awake alert Eye: PERRL, anicteric sclera ENT: normocephalic atraumatic Neck: supple Heart: RRR, normal peripheral pulses Respiratory: CTAB, normal chest expansion Gastrointestinal: soft, normal bowel sounds Neurological: cranial nerve grossly intact, no focal deficits, no new deficit Psychiatric: A&O x 3 Hosp A/P - Plan Acute and chronic respiratory failure with hypoxia Code(s): J96.21 - ACUTE AND CHRONIC RESPIRATORY FAILURE WITH HYPOXIA Status: Acute (2) Acute on chronic diastolic heart failure Code(s): I50.33 - ACUTE ON CHRONIC DIASTOLIC (CONGESTIVE) HEART FAILURE Status: Acute (3) Moderate to severe aortic stenosis Code(s): I35.0 - NONRHEUMATIC AORTIC (VALVE) STENOSIS Status: Chronic (4) Pneumonia Code(s): J18.9 - PNEUMONIA, UNSPECIFIED ORGANISM Status: Acute Qualifiers: Pneumonia type: due to unspecified organism Laterality: bilateral Lung location: lower lobe of lung Qualified Code(s): J18.9 - Pneumonia, unspecified organism - Plan #1. Acute on chronic respiratory failure with hypoxia. I suspect this may be secondary to heart failure exacerbation. There is some concern for pneumonia as well. -Continue O2 supplementation and wean as tolerated. ------- 2. Suspected pneumonia. -She is afebrile; clinically she has CHF exacerbation rather than pneumonia Antibiotics are discontinued. -suspect this is all from heart failure exacerbati on. 3. Acute on chronic congestive heart failure with diastolic dysfunction. Low-dose diuresis - Need to be mindful of her valvular disease as well. --- 4. Severe aortic stenosis. Appreciate cardiology's recommendations. Continue routine home medications. ---- 5. Chronic atrial fibrillation. She was not felt to be a candidate for anticoagulation but she is on rate control medications. C. difficile negative E. coli Shiga toxin in the stool study negative Her BNP level is around 1000 - done yesterday. Creatinine in the normal range. Hypertension -- We will reduce her blood pressure medication Toprol as latest blood pressure is on the low side. -We will also change IV diuretics to p.o. Continue on O2 supplementation for her SOB Maintain low-dose oral diuresis and monitor BP for acute on chronic CHF exace rbation. Appreciate cardiology report of with 80% stenosis. -Discuss need for High-resolution CT to rule out pulmonary fibrosis.----------------> shows usual interstitial pneumonitis patterns of mild to moderate pulmonary fibrosis - Continue rate control medication for Chronic Atrial Fibrillation/toprol Monitor Hyperkalemia - 5.3.------------> patient has no kidney dysfunction -will monitor in the morning her lab if it is above 5.5 will provide Kayexalate / hyperkalemia protocol-----------> resolved Dr. Díaz for her primary corporate responsibility officer, so Dr. Feliciano Appears the last cardiac catheter did not showed evidence of severe aortic stenosis however she needs to follow-up with them in the very near future. Her blood pressure is almost on the low side for the most of the time. She is not not able to get aggressive IV diuresis. To transfer to inpatient rehab pending patient likes to go to [facility] because family lives nearby.
[2020-04-16] MEDS: Atorvastatin Calcium 20 MG TAB PO SCH (20:55)
[2020-04-17] MEDS: Levothyroxine Sodium 50 MCG TAB PO SCH (06:24)
[2020-04-17] MEDS: Digoxin 0.125 MG TAB PO SCH (08:12)
[2020-04-17] MEDS: Carbidopa/Levodopa 10-100 mg Tablet PO SCH ×3 (08:12→21:30)
[2020-04-17] MEDS: Aspirin 81 mg Enteric Coated Tablet PO SCH (08:13)
[2020-04-17] MEDS: Diazepam 5 MG TAB PO SCH (08:13)
[2020-04-17] MEDS: Heparin 5,000 UNITS/ML VIAL SC SCH ×3 (08:13→21:30)
[2020-04-17] MEDS: Dicyclomine 10 MG CAP PO SCH ×2 (08:13→21:30)
[2020-04-17] MEDS: Furosemide 20 MG TAB PO SCH ×2 (08:14→15:29)
--- NOTE | 2020-04-17 16:10 | PDOC.BPN ---
- Brief Progress Note [id number] progress
--- NOTE | 2020-04-17 16:28 | PRG ---
DATE OF SERVICE: 04/17/2020 SUBJECTIVE: The patient is awake, in mild respiratory distress. No chest pain. No abdominal pain. REVIEW OF SYSTEMS: Review of 14 systems negative, except for shortness of breath. PHYSICAL EXAMINATION: GENERAL: The patient is in moderate distress. VITAL SIGNS: Blood pressure is 93/55, temperature is 98.3, respiratory rate is 23, oxygen saturation is 95% on 3 L/minute nasal cannula. HEAD AND NECK: Normocephalic. NECK: Supple. CHEST: Few bibasilar crackles. HEART: Regular rate and rhythm, systolic murmur. ABDOMEN: Soft, nontender. Bowel sounds present. NEUROLOGIC: Awake, alert, oriented, moving extremities. PSYCHIATRIC: Normal mood. ASSESSMENT AND PLAN: 1. Acute on chronic respiratory failure with hypoxemia. 2. Acute on chronic diastolic heart failure. 3. Ytszozsf-br-axtlgl aortic stenosis. 4. Suspected pneumonia. PLAN: 1. The patient is afebrile. Clinically, has CHF exacerbation rather than pneumonia. Unable to give morning dose of Lasix because of low blood pressure, continue to monitor closely. 2. Oxygen to keep saturation more than 92%. 3. Severe aortic stenosis, appreciate cardiology input and recommendations. 4. The patient has a history of chronic atrial fibrillation and she is not a candidate for anticoagulation. She is on rate control medications. 5. Awaiting transfer to inpatient rehab. Job ID: [id number]
[2020-04-17] MEDS: Atorvastatin Calcium 20 MG TAB PO SCH (21:30)
[2020-04-18] MEDS: Levothyroxine Sodium 50 MCG TAB PO SCH (05:25)
[2020-04-18 07:14] LABS: #Basophils 0.1 thou/uL (0.0-0.2); #Eosinphils 0.6 thou/uL (0.0-0.7); #Lymphocytes 1.3 thou/uL (1.20-3.40); #Neutrophils 7.4 thou/uL (1.40-6.50); %Basophils 0.8 % (0.0-1.0); %Lymphocytes 12.3 % (21.0-51.0); %Monocytes 9.3 % (0.0-10.0); %Neutrophils 71.5 % (42.0-75.0); Hemoglobin 12.5 g/dL (12.0-16.0); Mean Corpuscular HGB CONC 31.8 g/dL (32.0-36.0); Mean Corpuscular Hemoglobin 31.1 pg (27.0-31.0); Mean Corpuscular Volume 97.8 fL (78.0-98.0); Platelet Count 341 thou/uL (130-400); RBC Distribution Width 12.2 % (11.5-14.5); Red Blood Cell (RBC) Count 4.02 mill/uL (4.20-5.40); White Blood Cell (WBC) Count 10.3 thou/uL (4.8-10.8)
[2020-04-18 07:26] LABS: Anion Gap 15 mmol/L (10-20); BUN (Urea Nitrogen) 23 mg/dL (9.8-20.1); Calc. Creatinine Clearance 46 mL/min (70-130); Calcium 8.8 mg/dL (7.8-10.44); Carbon Dioxide 29 mmol/L (23-31); Chloride 100 mmol/L (98-107); Glucose 80 mg/dL (83-110); Potassium 4.8 mmol/L (3.5-5.1); Sodium 139 mmol/L (136-145)
[2020-04-18] MEDS: Carbidopa/Levodopa 10-100 mg Tablet PO SCH ×3 (09:09→21:13)
[2020-04-18] MEDS: Dicyclomine 10 MG CAP PO SCH ×2 (09:09→21:04)
[2020-04-18] MEDS: Aspirin 81 mg Enteric Coated Tablet PO SCH (09:09)
[2020-04-18] MEDS: Diazepam 5 MG TAB PO SCH (09:10)
[2020-04-18] MEDS: Digoxin 0.125 MG TAB PO SCH (09:10)
[2020-04-18] MEDS: Heparin 5,000 UNITS/ML VIAL SC SCH ×3 (09:11→21:04)
[2020-04-18] MEDS: Furosemide 20 MG TAB PO SCH ×2 (09:15→14:43)
[2020-04-18] MEDS ORDERED: Sodium Chloride 0.9% 250 ML IV SCH (11:45)
--- NOTE | 2020-04-18 14:21 | PDOC.BPN ---
- Brief Progress Note [id number]
--- NOTE | 2020-04-18 14:32 | PRG ---
DATE OF SERVICE: 04/18/2020 CURRENT MEDICATIONS: The patient is on, 1. Acetaminophen p.r.n. 2. Aspirin 81 mg daily. 3. Atorvastatin 20 mg p.o. at bedtime p.r.n. 4. Carbidopa/levodopa. 5. Cyclobenzaprine 5 mg p.o. t.i.d. p.r.n. 6. Diazepam 20 mg p.o. daily scheduled. 7. Dicyclomine 10 mg p.o. b.i.d. 8. Digoxin 0.125 p.o. daily. 9. Furosemide 20 mg p.o. twice a day. 10. Heparin 5000 mg t.i.d. 11. Levothyroxine 50 mcg p.o. daily. 12. Metoprolol 12.5 mg p.o. daily. SUBJECTIVE: The patient is awake. According to her, she had a better night last night without shortness of breath. Still having problem with her blood pressure that has been running on the low side with systolic in the 80s and 90s. Otherwise, no new complaints. OBJECTIVE: GENERAL: The patient is awake, alert, not in acute distress. VITAL SIGNS: Blood pressure is 99/53, temperature 98.2, pulse is 62, respiratory rate is 12, oxygen patient is 98% on nasal cannula. HEAD AND NECK: Normocephalic, atraumatic. Neck is supple. CHEST: Few bibasilar crackles. HEART: Irregular ? systolic murmur. ABDOMEN: Soft, nontender. Bowel sounds present. NEUROLOGIC: Awake, alert, moving extremities. PSYCH: Normal mood. LABORATORY DATA: Sodium is 139, potassium is 4.8, BUN is 23, creatinine 0.9. WBC 10.3, hemoglobin 12.5, and platelets 341. ASSESSMENT AND PLAN: 1. Acute on chronic respiratory failure with hypoxemia. 2. Acute on chronic diastolic heart failure. 3. Zydegvdp-ac-wvnpap aortic stenosis. 4. Hypotension. PLAN: 1. We will give 250 NS IV bolus. Blood pressure has been soft. Repeat blood pressure is 85/50. Given her cardiac history, just we need to closely monitor the patient. 2. Oxygen to keep saturation more than 92%. 3. The patient has aortic stenosis. Appreciate Cardiology input. 4. GI and DVT prophylaxis as appropriate. 5. Awaiting transfer to inpatient rehab. Job ID: [id number]
[2020-04-18] MEDS: Atorvastatin Calcium 20 MG TAB PO SCH (21:04)
[2020-04-19] MEDS: Levothyroxine Sodium 50 MCG TAB PO SCH (05:15)
[2020-04-19 05:19] LABS: #Basophils 0.1 thou/uL (0.0-0.2); #Eosinphils 0.7 thou/uL (0.0-0.7); #Lymphocytes 1.7 thou/uL (1.20-3.40); #Monocytes 0.9 thou/uL (0.11-0.59); #Neutrophils 6.6 thou/uL (1.40-6.50); %Eosinophils 7.3 % (0.0-10.0); %Lymphocytes 17.2 % (21.0-51.0); %Monocytes 8.8 % (0.0-10.0); %Neutrophils 65.8 % (42.0-75.0); Hemoglobin 13.2 g/dL (12.0-16.0); Mean Corpuscular HGB CONC 31.9 g/dL (32.0-36.0); Mean Corpuscular Hemoglobin 31.8 pg (27.0-31.0); Mean Corpuscular Volume 99.5 fL (78.0-98.0); Mean Platelet Volume 9.2 fL (7.4-10.4); Platelet Count 293 thou/uL (130-400); RBC Distribution Width 12.3 % (11.5-14.5); Red Blood Cell (RBC) Count 4.15 mill/uL (4.20-5.40); White Blood Cell (WBC) Count 10.1 thou/uL (4.8-10.8)
[2020-04-19 05:44] LABS: Anion Gap 14 mmol/L (10-20); BUN (Urea Nitrogen) 24 mg/dL (9.8-20.1); Calc. Creatinine Clearance 49 mL/min (70-130); Calcium 8.8 mg/dL (7.8-10.44); Carbon Dioxide 29 mmol/L (23-31); Chloride 100 mmol/L (98-107); Glucose 82 mg/dL (83-110); Potassium 4.7 mmol/L (3.5-5.1); Sodium 138 mmol/L (136-145)
--- NOTE | 2020-04-19 08:43 | PDOC.HOSPP ---
- Subjective Encounter Date: 04/19/20 Encounter Time: 11:00 Subjective: Patient feels a little bit breathless this morning. Oxygen requirement unchanged. She did need a very small fluid bolus yesterday due to some hypotension. - Objective Vital Signs & Weight: Vital Signs (12 hours) Temp Pulse Resp BP Pulse Ox 04/19/20 04:22 98 04/19/20 04:00 98.2 F 74 22 H 113/61 04/19/20 00:00 98.6 F 82 18 99/65 98 Weight Admit Weight 163 lb Weight 157 lb 9 oz I&O: 04/18/20 04/19/20 04/20/20 06:59 06:59 06:59 Intake Total 500 730 Balance 500 730 Result Diagrams: 04/19/20 04:33 04/19/20 04:33 Hospitalist ROS - Review of Systems Constitutional: reports: weakness. denies: fever, chills Respiratory: reports: shortness of breath, SOB with excertion. denies: cough Cardiovascular: denies: chest pain, palpitations Gastrointestinal: denies: nausea, vomiting, abdominal pain Genitourinary: denies: dysuria, hematuria - Medication Medications: Active Medications Generic Name Dose Route Start Last Admin Trade Name Freq PRN Reason Stop Dose Admin Acetaminophen 650 mg 04/06/20 10:26 04/12/20 12:54 Acetaminophen 325 Mg Tab PO 650 mg Q4H PRN Administration Headache/Fever/Mild Pain (1-3) Aspirin 81 mg 04/10/20 09:00 04/18/20 09:09 Aspirin 81 Mg Enteric Coated Tablet PO 81 mg DAILY [facility] Administration Atorvastatin Calcium 20 mg 04/06/20 21:00 04/18/20 21:04 Atorvastatin Calcium 20 Mg Tab PO 20 mg HS [facility] Administration Carbidopa/Levodopa 1 tab 04/06/20 15:00 04/18/20 21:13 Carbidopa/Levodopa 10-100 Mg Tablet PO 1 tab TID [facility] Administration Diazepam 2.5 mg 04/12/20 09:00 04/18/20 09:10 Diazepam 5 Mg Tab PO 2.5 mg DAILY [facility] Administration Dicyclomine HCl 10 mg 04/10/20 09:00 04/18/20 21:04 Dicyclomine 10 Mg Cap PO 10 mg BID [facility] Administration Digoxin 0.125 mg 04/07/20 09:00 04/18/20 09:10 Digoxin 0.125 Mg Tab PO 0.125 mg DAILY [facility] Administration Furosemide 20 mg 04/11/20 14:00 04/18/20 14:43 Furosemide 20 Mg Tab PO Not Given 0900,1400 [facility] Heparin Sodium (Porcine) 5,000 units 04/06/20 15:00 04/18/20 21:04 Heparin 5,000 Units/Ml Vial SC 5,000 units TID [facility] Administration Levothyroxine Sodium 50 mcg 04/07/20 06:00 04/19/20 05:15 Levothyroxine Sodium 50 Mcg Tab PO 50 mcg 0600 [facility] Administration Metoprolol Succinate 12.5 mg 04/12/20 09:00 04/18/20 09:15 Metoprolol Succinate Xl 25 Mg Tab PO Not Given DAILY [facility] Sodium Chloride 10 ml 04/06/20 10:26 04/18/20 09:09 Flush - Normal Saline 10 Ml Syringe IVF 10 ml PRN PRN Administration Saline Flush Hospitalist Exam Vitals: Vital Signs (12 hours) Temp Pulse Resp BP Pulse Ox 04/19/20 04:22 98 04/19/20 04:00 98.2 F 74 22 H 113/61 04/19/20 00:00 98.6 F 82 18 99/65 98 Weight Admit Weight 163 lb Weight 157 lb 9 oz General Appearance: NAD, awake alert ENT: moist mucosa ENT - other findings: On 3 L nasal cannula Heart: RRR, no gallops, no rubs, murmur present, II/IV Respiratory: CTAB, no wheezes, no rales, no ronchi Gastrointestinal: soft, non-tender, non-distended, normal bowel sounds Extremities: no edema Psychiatric: normal affect, normal behavior, A&O x 3 Hosp A/P - Plan #1. Acute on chronic respiratory failure with hypoxia. Secondary to heart failure exacerbation -Continue O2 supplementation and wean as tolerated. ------- 2. Suspected pneumoniaruled out -She is afebrile; clinically she has CHF exacerbation rather than pneumonia Antibiotics are discontinued. -suspect this is all from heart failure exacerbation. 3. Acute on chronic congestive heart failure with diastolic dysfunction. Low-dose diuresis - Need to be mindful of her valvular disease as well. --- 4. Severe aortic stenosis. Appreciate cardiology's recommendations. Continue routine home medications. ---- 5. Chronic atrial fibrillation. She was not felt to be a candidate for anticoagulation but she is on rate control medications. 6. Hypertension -- We will reduce her blood pressure medication Toprol as latest blood pressure is on the low side. -Changed IV diuretics to p.o. Continue on O2 supplementation for her SOB Maintain low-dose oral diuresis and monitor BP for acute on chronic CHF exacerbation. (actually needed a bit of fluid yesterday) Appreciate cardiology report of with 80% stenosis. -Discuss need for High-resolution CT to rule out pulmonary fibrosis.--------- -------> shows usual interstitial pneumonitis patterns of mild to moderate pulmonary fibrosis - Continue rate control medication for Chronic Atrial Fibrillation/toprol Dr. Díaz for her primary gathering worker, so Dr. Feliciano following here Appears the last cardiac catheter did not showed evidence of severe aortic stenosis however she needs to follow-up with them in the very near future. Her blood pressure is almost on the low side for the most of the time and needed a bit of fluid yesterday To transfer to inpatient rehab pending patient likes to go to [place] [facility] because family lives nearby. I spoke to Dr. De La Fuente and he accepted the patient. Transferring later today.
[2020-04-19] MEDS ORDERED: Furosemide 20 MG TAB PO SCH (09:00)
[2020-04-19] MEDS: Aspirin 81 mg Enteric Coated Tablet PO SCH (10:56)
[2020-04-19] MEDS: Diazepam 5 MG TAB PO SCH (10:56)
[2020-04-19] MEDS: Dicyclomine 10 MG CAP PO SCH (10:57)
[2020-04-19] MEDS: Digoxin 0.125 MG TAB PO SCH (10:57)
[2020-04-19] MEDS: Heparin 5,000 UNITS/ML VIAL SC SCH ×2 (10:57→15:07)
[2020-04-19] MEDS: Carbidopa/Levodopa 10-100 mg Tablet PO SCH ×2 (10:59→15:07)
--- NOTE | 2020-04-19 13:58 | PDOC.DS.DS ---
Provider Date of Admission: 04/06/20 06:22 Date of Discharge: 04/19/20 Admitting Provider: Jeremías Canales MD Consultations: Cardiology (Dr. Lopez and Dr. Feliciano) Primary Care Physician: Neptali Raymond MD Course Hospital Course: This is an 89-year-old female with a past medical history of diastolic congestive heart failure, moderate to severe aortic stenosis, pulmonary hypertension, and chronic respiratory failure on home oxygen of 2.5 L at baseline who presented from the [place] emergency room with shortness of breath. Patient was initially treated for possible sepsis with pneumonia by giving antibiotics. She had blood cultures done that were negative. She did initially have an elevated lactic acid but her white cell count was only 12,000. Patient was also noted to have an elevated troponin. She also had worsening diarrhea. Stool cultures were all negative and she was negative for C. difficile. Patient was treated with antibiotics initially however on review of her case it was eventually determined that she had congestive heart failure exacerbation rather than infection so the antibiotics were discontinued. Cardiology was consulted. She was diuresed with Lasix and eventually had improvement in her respiratory status. She was eventually able to be weaned down to 3 L of oxygen by nasal cannula. With further diuresis she started to become hypotensive so patient's IV diuretics were switched to p.o. diuretics and she did have to have a very small fluid bolus at one point to get her pressures back up. Patient's metoprolol also had to be decreased and her lisinopril was discontinued due to the low blood pressures. Patient was deemed to be stable and is being transferred to [facility] bed for physical therapy. Patient does need to follow-up with her outpatient rotary shear operator Dr. Rebollar when she is out of rehab. Pertinent Studies: CT CHEST WITHOUT CONTRAST HIGH RESOLUTION: HISTORY: Pulmonary fibrosis. COMPARISON: A CTA of the chest 04/06/2020. FINDINGS: Heart size is mildly enlarged. Large hiatal hernia, with organoaxial volvulus, a chronic finding. Pulmonary trunk and the left and right pulmonary arteries are dilated. Heart size is mildly enlarged. No pneumothorax. No significant effusion. With regard to the lungs, there basilar and subpleural codominant distribution of honeycombing with articular pattern peripheral traction bronchiectasis. No significant ground-glass opacities. No consolidation. IMPRESSION: Usual interstitial pneumonitis pattern of mild-moderate pulmonary fibrosis. CT PULMONARY ANGIOGRAM WITH IV CONTRAST AND 3D POSTPROCESSING: Date: 04/06/2020 HISTORY: Mediastinal mass, shortness of breath. FINDINGS: The pulmonary arterial vasculature is well opacified without filling defects to suggest pulmonary embolism. There are vascular calcifications with ectasia of the thoracic aorta. No pericardial or right pleural effusions are seen. There is a tiny left pleural effusion with adjacent atelectatic change. There are chronic parenchymal changes in the lung modi bilaterally. There is evidence of old granulomatous disease. No pneumothoraces or lobar consolidation identified. There are degenerative changes in the spine. Upper abdominal tomograms demonstrate a cyst in the right kidney. There is a moderate sized hiatal hernia. There are prominent mediastinal lymph nodes measuring up to 12.0 mm in the right paratracheal region. Old compressed vertebral bodies in the thoracic spine. IMPRESSION: 1. No CT evidence of pulmonary embolism. 2. Moderate sized hiatal hernia. Resuscitation Status: 04/06/20 10:26 Resuscitation Status Routine Co-Sign Provider: Resuscitation Status: PRTL: Cardiac only Discussed with: Patient, Attending physician Additional comments: Patient consents to CPR and medical rescustation. She does not give consent to be intubated. Lab Results: 04/19/20 04:33 04/19/20 04:33 Abnormal Lab Results - Last 48 hrs 04/18/20 06:55: RBC 4.02 L, MCH 31.1 H, MCHC 31.8 L, Lymphocytes % 12.3 L, Neutrophils # 7.4 H, Monocytes # 1.0 H 04/18/20 06:55: BUN 23 H 04/19/20 04:33: BUN 24 H 04/19/20 04:33: RBC 4.15 L, MCV 99.5 H, MCH 31.8 H, MCHC 31.9 L, Lymphocytes % 17.2 L, Neutrophils # 6.6 H, Monocytes # 0.9 H Microbiology - Entire Visit 04/06/20 14:55 Stool Stool Culture - Final 04/06/20 14:55 Stool Campylobacter Antigen Assay - Final 04/06/20 14:55 Stool Shiga Toxin Test - Final 04/06/20 14:55 Stool C. difficile GDH Antigen & Toxins - Final 04/06/20 14:55 Stool Escherichia coli 0157 Culture - Final Vitals: Vital Signs (12 hours) Temp Pulse Resp BP Pulse Ox 04/19/20 10:55 98.1 F 80 16 108/60 94 L 04/19/20 04:22 98 04/19/20 04:00 98.2 F 74 22 H 113/61 Weight Admit Weight 163 lb Weight 157 lb 9 oz Physical Exam: The patient was seen and examined on the day of discharge. Problem Assessment: Acute on chronic respiratory failure with hypoxia. Suspected pneumoniaruled out Acute on chronic congestive heart failure with diastolic dysfunction. Moderate to severe aortic stenosis. Pulmonary fibrosis Chronic atrial fibrillation. Hypertension Plan of Treatment: Transfer to [facility] bed at [place] for further physical therapy. We will continue her on once a day oral Lasix now and a lower dose of metoprolol and continue to hold the lisinopril due to her low blood pressures. Patient will need to follow-up with her outpatient rotary shear operator Dr. Rebollar when she is back home. Time Spent in discharge related activities (mins): 35 Plan Home Medications: Medication Instructions Recorded Confirmed Type Atorvastatin Calcium 20 mg PO HS 01/03/15 04/09/20 History Citalopram Hydrobromide 20 mg PO HS 01/03/15 04/09/20 History [Citalopram HBr] Dicyclomine [Bentyl] 10 mg PO BID 01/03/15 04/09/20 History Levothyroxine Sodium [Levoxyl] 50 mcg PO DAILY 01/03/15 04/09/20 History Aspirin [Ecotrin Low Strength] 81 mg PO DAILY 01/04/15 04/09/20 History Carbidopa/Levodopa [Sinemet] 10 - 100 mg PO TID 05/31/17 04/09/20 History Digoxin [Lanoxin] 0.125 mg PO DAILY #30 tab 07/04/17 04/09/20 Rx Furosemide [Lasix] 40 mg PO DAILY #30 tab 01/08/20 04/09/20 Rx Acetaminophen [Tylenol Regular 500 mg PO BID 04/07/20 04/09/20 History Strength] Polyethylene Glycol OPTH DROP 1 drop EA EYE PRN PRN 04/07/20 04/07/20 History [Systane Ophth Solution] Diazepam 5 mg PO DAILY 04/09/20 04/09/20 History Cyclobenzaprine [Flexeril] 5 mg PO TID PRN tab 04/19/20 Rx Metoprolol Succinate [Toprol XL] 12.5 mg PO DAILY tab 04/19/20 Rx Allergies: codeine Allergy (Verified 12/26/19 18:29) PER ER NOTES Penicillins Allergy (Verified 12/26/19 18:29) PER ER NOTES Activity:: Activity as Tolerated Nourishment:: Fluid Restriction Diet (1500 mL/day), Other (Lactulose restricted) Therapies:: Occupational Therapy, Physical Therapy Equipment/Supplies:: Oxygen (3 L nasal cannula) IV Therapy:: Not Applicable Referrals: Alfred Rebollar MD [MD Not on Staff] - 2-3 Weeks Neptali Raymond MD [Primary Care Provider] - Disposition: OTHER HOSPITAL INPT Quality CORE MEASURES:: HF
[2020-04-19 16:14] VITALS: BP 105/66; TEMP 98.5
== END 2020-04-19 18:12 | disposition swing bed (61) | DRG 291 ==
LOC: ERS 04:57 → ERHOLD 06:22 → 2SW 04-07 15:07
PROVIDERS: ADMIT Student in an Organized Health Care Education/Training Program; ATTEND Emergency Medicine
DX: I11.0 Hypertensive heart disease with heart failure (principal); J96.21 Acute and chronic respiratory failure with hypoxia; I48.20 Chronic atrial fibrillation, unspecified; E44.1 Mild protein-calorie malnutrition; I50.33 Acute on chronic diastolic (congestive) heart failure; Z20.822 Contact with and (suspected) exposure to COVID-19; I35.0 Nonrheumatic aortic (valve) stenosis; J84.10 Pulmonary fibrosis, unspecified; E03.9 Hypothyroidism, unspecified; K21.9 Gastro-esophageal reflux disease without esophagitis; E78.5 Hyperlipidemia, unspecified; G20 Parkinson's disease; I27.20 Pulmonary hypertension, unspecified; Z96.649 Presence of unspecified artificial hip joint; R77.8 Other specified abnormalities of plasma proteins; R19.7 Diarrhea, unspecified; J45.909 Unspecified asthma, uncomplicated; I95.9 Hypotension, unspecified; R68.0 Hypothermia, not associated with low environmental temperature; E87.5 Hyperkalemia; Z68.26 Body mass index [BMI] 26.0-26.9, adult; Z88.0 Allergy status to penicillin; Z28.21 Immunization not carried out because of patient refusal; Z88.5 Allergy status to narcotic agent; Z79.899 Other long term (current) drug therapy; Z79.890 Hormone replacement therapy; Z79.82 Long term (current) use of aspirin; Z99.81 Dependence on supplemental oxygen; Z90.49 Acquired absence of other specified parts of digestive tract; Z90.710 Acquired absence of both cervix and uterus
CPT/HCPCS: 36415; 71250; 71275; 80048; 80162; 82553; 83605; 83735; 83880; 84145; 84443; 85025; 87045; 87046; 87324; 87427; 87449; 87899; 93005; 96365; J0456; J0696; J1644; J1940; J3370; J3475; J3490; J7050; P9047; Q9967